=== PATIENT | male | born 1975 | race Caucasian/White ===

== ENCOUNTER 2017-05-09 09:13 | Inpatient (IN) | payer BC ==
--- NOTE | 2017-05-09 09:31 | EDM.PDOC ---
ED HPI GENERAL MEDICAL PROBLEM - General Chief Complaint: Gastrointestinal Problem Stated Complaint: SICK [phone] Time Seen by Provider: 05/09/17 09:29 Source of Information: Reports: Patient, Family, Old Records, RN, RN Notes Reviewed History Limitations: Reports: No Limitations - History of Present Illness INITIAL COMMENTS - FREE TEXT/NARRATIVE: Arrives from home by POV with c/o onset of nausea and vomiting yesterday, unable to keep anything down. Pt has DM Type 1 with poor control and reports that he has been running very high blood sugars since he became ill yesterday. Admits to loss of appetite, fatigue, generalized weakness, and chills. Onset: Gradual Onset Date: 05/08/17 Duration: Constant, Getting Worse Location: Reports: Abdomen, Generalized Quality: Reports: Other (denies pain) Severity: Severe Improves with: Reports: None Worsens with: Reports: None Associated Symptoms: Reports: No Other Symptoms Treatments [employer]: Reports: Insulin - Related Data Allergies Allergy/AdvReac Type Severity Reaction Status Date / Time No Known Allergies Allergy Verified 07/29/15 09:46 Home Meds: Home Meds Insulin Aspart [NovoLOG] 20 - 25 units SQ TIDMEALS 08/02/15 [History] Insulin Glarg,Human.Rec.Analog [Lantus] 25 units SQ BEDTIME 08/02/15 [History] Lisinopril 10 mg PO BID 08/02/15 [History] atorvaSTATin Calcium [Atorvastatin Calcium] 10 mg PO DAILY 08/02/15 [History] Past Medical History Cardiovascular History: Reports: High Cholesterol, Hypertension Neurological History: Reports: Neuropathy, Peripheral Endocrine/Metabolic History: Reports: Diabetes, Type I Dermatologic History: Reports: Cellulitis - Past Surgical History Endocrine Surgical History: Reports: None Dermatological Surgical History: Reports: None Social & Family History - Family History Family Medical History: Noncontributory - Tobacco Use Smoking Status *Q: Never Smoker Second Hand Smoke Exposure: No - Recreational Drug Use Recreational Drug Use: No - Living Situation & Occupation Living situation: Reports: , with Family ED ROS GENERAL - Review of Systems Review Of Systems: ROS reveals no pertinent complaints other than HPI. ED EXAM GENERAL NO PERIP PULSE - Physical Exam Exam: See Below Exam Limited By: No Limitations General Appearance: Alert, No Apparent Distress, Other (ill but non-toxic appearing) Eye Exam: Bilateral Eye: Normal Inspection Ears: Normal External Exam, Hearing Grossly Normal Nose: Normal Inspection, Normal Mucosa, No Blood Throat/Mouth: Normal Inspection, Normal Lips, Normal Teeth, Normal Gums, Normal Oropharynx, Normal Voice, No Airway Compromise, Other (dry oral membranes) Head: Atraumatic, Normocephalic Neck: Normal Inspection, Supple, Non-Tender, Full Range of Motion, Other (no nuchal rigidity). No: Lymphadenopathy (L), Lymphadenopathy (R) Respiratory/Chest: No Respiratory Distress, Lungs Clear, Normal Breath Sounds, No Accessory Muscle Use, Chest Non-Tender Cardiovascular: Regular Rate, Rhythm, No Edema, No Gallop, No JVD, No Murmur, No Rub GI/Abdominal: Normal Bowel Sounds, Soft, Non-Tender, No Distention, No Abnormal Bruit (Male) Exam: Deferred Rectal (Males) Exam: Deferred Back Exam: Normal Inspection. No: CVA Tenderness (L), CVA Tenderness (R) Extremities: Normal Inspection, Normal Range of Motion, Non-Tender, Normal Capillary Refill, No Pedal Edema Neurological: Alert, Oriented, CN II-XII Intact, Normal Cognition, Normal Gait, No Motor/Sensory Deficits Psychiatric: Normal Affect, Normal Mood Skin Exam: Warm, Dry, Intact, No Rash, Pallor EKG INTERPRETATION EKG Date: 05/09/17 Time: 09:50 Rhythm: Other (SR) [place]: Normal P-Wave: Present QRS: Normal ST-T: Normal QT: Normal Comparison: NA - No Prior EKG EKG Interpretation Comments: No acute ischemic changes. Course - Vital Signs Last Recorded V/S: Last Vital Signs Temp 37.7 C 05/09/17 10:09 Pulse 89 05/09/17 10:30 Resp 15 05/09/17 10:30 BP 151/86 H 05/09/17 10:30 Pulse Ox 98 05/09/17 10:09 - Orders/Labs/Meds Orders: Active Orders 24 hr Category Date Time Status Blood Glucose Check, Bedside [RC] ONETIME Care 05/09/17 09:37 Active EKG 12 Lead [EKG Documentation Completion] [RC] STAT Care 05/09/17 09:37 Active Peripheral IV Care [RC] . DIRECTED Care 05/09/17 09:37 Active Chest 1V Frontal [CR] Routine Exams 05/09/17 10:37 Taken Chest 1V Frontal [CR] Stat Exams 05/09/17 09:32 Ordered CBC WITH AUTO DIFF [HEME] Stat Lab 05/09/17 09:32 Ordered COMPREHENSIVE METABOLIC PN,CMP [CHEM] Stat Lab 05/09/17 09:32 Ordered CULTURE BLOOD [BC] Stat Lab 05/09/17 09:33 Ordered CULTURE BLOOD [BC] Stat Lab 05/09/17 09:33 Ordered CULTURE BLOOD [BC] Stat Lab 05/09/17 09:54 Received CULTURE BLOOD [BC] Stat Lab 05/09/17 09:59 Received CULTURE STREP A CONFIRMATION [RM] Stat Lab 05/09/17 09:50 Results DRUG SCREEN URINE BIORAD [URCHEM] Stat Lab 05/09/17 09:37 Uncollected STREP SCRN A RAPID W CULT CONF [RM] Stat Lab 05/09/17 09:50 Results TROPONIN I [CHEM] Stat Lab 05/09/17 09:32 Ordered UA W/MICROSCOPIC [URIN] Stat Lab 05/09/17 09:33 Uncollected Insulin Regular, Human [HumuLIN R] 100 unit Med 05/09/17 09:45 Active Sodium Chloride 0.9% [Normal Saline] 99 ml IV TITRATE Sodium Chloride 0.9% [Normal Saline] 1,000 ml Med 05/09/17 10:33 Active IV .BOLUS Sodium Chloride 0.9% [Saline Flush] Med 05/09/17 09:37 Active 10 ml FLUSH ASDIRECTED PRN Blood Culture x2 Reflex Set [OM.PC] Stat Oth 05/09/17 09:33 Ordered Blood Culture x2 Reflex Set [OM.PC] Stat Oth 05/09/17 09:37 Ordered Peripheral IV Insertion Adult [OM.PC] Stat Oth 05/09/17 09:32 Ordered Peripheral IV Insertion Adult [OM.PC] Stat Oth 05/09/17 09:37 Ordered Medication Orders Insulin Human Regular 100 unit (/ Sodium Chloride) 100 mls @ 8.52 mls/hr IV TITRATE MARCO; 0.1 UNITS/KG/HR PRN Reason: Protocol Last Admin: 05/09/17 10:28 Dose: 0.1 units/kg/hr, 8.52 mls/hr Sodium Chloride (Normal Saline) 1,000 mls @ 999 mls/hr IV .BOLUS ONE Stop: 05/09/17 11:33 Last Admin: 05/09/17 10:51 Dose: 999 mls/hr Sodium Chloride (Saline Flush) 10 ml FLUSH ASDIRECTED PRN PRN Reason: Keep Vein Open Last Admin: 05/09/17 09:43 Dose: 10 ml Labs: Laboratory Tests 05/09/17 05/09/17 05/09/17 Range/Units 09:35 09:39 09:54 WBC (5.0-10.0) 10^3/uL RBC (4.6-6.2) 10^6/uL Hgb (14.0-18.0) g/dL Hct (40.0-54.0) % MCV (80-100) fL MCH (27.0-34.0) pg MCHC (33.0-35.0) g/dL Plt Count (150-450) 10^3/uL Neut % (Auto) (42.2-75.2) % Lymph % (Auto) (20.5-50.1) % [place] % (Auto) (2-8) % Eos % (Auto) (1.0-3.0) % Baso % (Auto) (0.0-1.0) % ABG pH 7.37 (7.35-7.45) ABG pCO2 34 L (35-45) mmHg ABG pO2 38 L* (70-100) mmHg ABG HCO3 20.0 L (22-26) mmol/L ABG O2 Saturation 72 L (95-100) % ABG Base Excess -6 L ((-2)-(+3)) mmol/L Sergio Test Y O2 Delivery Device Room air Sodium 136 (135-145) mmol/L Potassium 4.7 (3.6-5.0) mmol/L Chloride 98 L (101-111) mmol/L Carbon Dioxide 20.0 L (21.0-31.0) mmol/L Anion Gap 22.7 BUN 59 H D (7-18) mg/dL Creatinine 2.6 H D (0.6-1.3) mg/dL Est Cr Clr Drug Dosing 37.44 mL/min Estimated GFR (MDRD) 27 BUN/Creatinine Ratio 22.69 Glucose 449 H* (74-105) mg/dL POC Glucose 437 H* (70-105) mg/dl Lactic Acid (0.5-2.2) mmol/L Calcium 9.6 (8.4-10.2) mg/dl Phosphorus 3.6 (2.5-4.6) mg/dL Magnesium 2.1 (1.8-2.5) mg/dL Total Bilirubin 2.1 H (0.2-1.0) mg/dL AST 20 (10-42) IU/L ALT 16 (10-60) IU/L Alkaline Phosphatase 79 (42-121) IU/L Troponin I < 0.02 (0.00-0.02) ng/ml Total Protein 7.4 (6.7-8.2) g/dl Albumin 4.1 (3.2-5.5) g/dl Globulin 3.3 Albumin/Globulin Ratio 1.24 Amylase 61 (28-100) U/L Lipase 14 L (22-51) U/L Ketones Positive 05/09/17 05/09/17 Range/Units 09:54 09:54 WBC 11.2 H (5.0-10.0) 10^3/uL RBC 3.70 L (4.6-6.2) 10^6/uL Hgb 10.9 L (14.0-18.0) g/dL Hct 32.3 L (40.0-54.0) % MCV 87.3 (80-100) fL MCH 29.5 (27.0-34.0) pg MCHC 33.7 (33.0-35.0) g/dL Plt Count 267 D (150-450) 10^3/uL Neut % (Auto) 88.2 H (42.2-75.2) % Lymph % (Auto) 9.5 L (20.5-50.1) % [place] % (Auto) 2.1 (2-8) % Eos % (Auto) 0.0 L (1.0-3.0) % Baso % (Auto) 0.2 (0.0-1.0) % ABG pH (7.35-7.45) ABG pCO2 (35-45) mmHg ABG pO2 (70-100) mmHg ABG HCO3 (22-26) mmol/L ABG O2 Saturation (95-100) % ABG Base Excess ((-2)-(+3)) mmol/L Sergio Test O2 Delivery Device Sodium (135-145) mmol/L Potassium (3.6-5.0) mmol/L Chloride (101-111) mmol/L Carbon Dioxide (21.0-31.0) mmol/L Anion Gap BUN (7-18) mg/dL Creatinine (0.6-1.3) mg/dL Est Cr Clr Drug Dosing mL/min Estimated GFR (MDRD) BUN/Creatinine Ratio Glucose (74-105) mg/dL POC Glucose (70-105) mg/dl Lactic Acid 1.8 (0.5-2.2) mmol/L Calcium (8.4-10.2) mg/dl Phosphorus (2.5-4.6) mg/dL Magnesium (1.8-2.5) mg/dL Total Bilirubin (0.2-1.0) mg/dL AST (10-42) IU/L ALT (10-60) IU/L Alkaline Phosphatase (42-121) IU/L Troponin I (0.00-0.02) ng/ml Total Protein (6.7-8.2) g/dl Albumin (3.2-5.5) g/dl Globulin Albumin/Globulin Ratio Amylase (28-100) U/L Lipase (22-51) U/L Ketones Influenza A/B: Negative Rapid Strep: Negative Meds: Medications Generic Name Dose Route Start Last Admin Trade Name Freq PRN Reason Stop Dose Admin Insulin Human Regular 100 unit 100 mls @ 8.52 mls/hr 05/09/17 09:45 05/09/17 10:28 / Sodium Chloride IV 0.1 units/kg/hr TITRATE MARCO 8.52 mls/hr Protocol Administration 0.1 UNITS/KG/HR Sodium Chloride 1,000 mls @ 999 mls/hr 05/09/17 10:33 05/09/17 10:51 Normal Saline IV 05/09/17 11:33 999 mls/hr .BOLUS ONE Administration Sodium Chloride 10 ml 05/09/17 09:37 05/09/17 09:43 Saline Flush FLUSH 10 ml ASDIRECTED PRN Administration Keep Vein Open Discontinued Medications Generic Name Dose Route Start Last Admin Trade Name Freq PRN Reason Stop Dose Admin Sodium Chloride 1,000 mls @ 999 mls/hr 05/09/17 09:40 05/09/17 09:43 Normal Saline IV 05/09/17 10:40 999 mls/hr .BOLUS ONE Administration Ondansetron HCl 4 mg 05/09/17 09:39 05/09/17 09:42 Zofran IV 05/09/17 09:40 4 mg ONETIME ONE Administration Ondansetron HCl Confirm 05/09/17 09:40 05/09/17 09:42 Zofran Administered 05/09/17 09:41 Not Given Dose 4 mg .ROUTE .STK-MED ONE - Radiology Interpretation Free Text/Narrative:: CXR: no acute process, see Rad. report. Departure - Departure Time of Disposition: 11:04 (admitted to Dr. Hannah) Disposition: Admitted As Inpatient 64 Condition: Serious Clinical Impression: Ketoacidosis in patient with type 1 diabetes mellitus Qualifiers: Diabetes mellitus complication detail: without coma Qualified Code(s): E10.10 - Type 1 diabetes mellitus with ketoacidosis without coma Nausea & vomiting Qualifiers: Vomiting type: unspecified Vomiting Intractability: non-intractable Qualified Code(s): R11.2 - Nausea with vomiting, unspecified - Discharge Information Referrals: Rock Matias MD [Primary Care Provider] - Forms: ED Department Discharge - My Orders Last 24 Hours: My Active Orders 05/09/17 09:32 Chest 1V Frontal [CR] Stat CBC WITH AUTO DIFF [HEME] Stat COMPREHENSIVE METABOLIC PN,CMP [CHEM] Stat TROPONIN I [CHEM] Stat Peripheral IV Insertion Adult [OM.PC] Stat 05/09/17 09:33 CULTURE BLOOD [BC] Stat CULTURE BLOOD [BC] Stat UA W/MICROSCOPIC [URIN] Stat Blood Culture x2 Reflex Set [OM.PC] Stat 05/09/17 09:37 Blood Glucose Check, Bedside [RC] ONETIME EKG 12 Lead [EKG Documentation Completion] [RC] STAT Peripheral IV Care [RC] . DIRECTED DRUG SCREEN URINE BIORAD [URCHEM] Stat Sodium Chloride 0.9% [Saline Flush] 10 ml FLUSH ASDIRECTED PRN Blood Culture x2 Reflex Set [OM.PC] Stat Peripheral IV Insertion Adult [OM.PC] Stat 05/09/17 09:45 Insulin Regular, Human [HumuLIN R] 100 unit Sodium Chloride 0.9% [Normal Saline] 99 ml IV TITRATE 05/09/17 09:50 CULTURE STREP A CONFIRMATION [RM] Stat STREP SCRN A RAPID W CULT CONF [RM] Stat 05/09/17 09:54 CULTURE BLOOD [BC] Stat 05/09/17 09:59 CULTURE BLOOD [BC] Stat 05/09/17 10:33 Sodium Chloride 0.9% [Normal Saline] 1,000 ml IV .BOLUS 05/09/17 10:37 Chest 1V Frontal [CR] Routine - Assessment/Plan Last 24 Hours: My Active Orders 05/09/17 09:32 Chest 1V Frontal [CR] Stat CBC WITH AUTO DIFF [HEME] Stat COMPREHENSIVE METABOLIC PN,CMP [CHEM] Stat TROPONIN I [CHEM] Stat Peripheral IV Insertion Adult [OM.PC] Stat 05/09/17 09:33 CULTURE BLOOD [BC] Stat CULTURE BLOOD [BC] Stat UA W/MICROSCOPIC [URIN] Stat Blood Culture x2 Reflex Set [OM.PC] Stat 05/09/17 09:37 Blood Glucose Check, Bedside [RC] ONETIME EKG 12 Lead [EKG Documentation Completion] [RC] STAT Peripheral IV Care [RC] . DIRECTED DRUG SCREEN URINE BIORAD [URCHEM] Stat Sodium Chloride 0.9% [Saline Flush] 10 ml FLUSH ASDIRECTED PRN Blood Culture x2 Reflex Set [OM.PC] Stat Peripheral IV Insertion Adult [OM.PC] Stat 05/09/17 09:45 Insulin Regular, Human [HumuLIN R] 100 unit Sodium Chloride 0.9% [Normal Saline] 99 ml IV TITRATE 05/09/17 09:50 CULTURE STREP A CONFIRMATION [RM] Stat STREP SCRN A RAPID W CULT CONF [RM] Stat 05/09/17 09:54 CULTURE BLOOD [BC] Stat 05/09/17 09:59 CULTURE BLOOD [BC] Stat 05/09/17 10:33 Sodium Chloride 0.9% [Normal Saline] 1,000 ml IV .BOLUS 05/09/17 10:37 Chest 1V Frontal [CR] Routine
[2017-05-09] MEDS ORDERED: Ondansetron 4 MG/2 ML SDV IV ONE (09:39)
[2017-05-09] MEDS ORDERED: Sodium Chloride 0.9% 1,000 ML IV ONE ×2 (09:40→10:33)
[2017-05-09] MEDS ORDERED: Ondansetron 4 MG/2 ML SDV ONE (09:40)
[2017-05-09] MEDS: Sodium Chloride 0.9% 10 ML Syringe FLUSH PRN ×2 (09:43→17:55)
[2017-05-09 10:27] LABS: CHLORIDE,CL 98 mmol/L (101-111); SODIUM,NA 136 mmol/L (135-145)
[2017-05-09 10:33] LABS: O2 DELIVERY DEVICE ROOM AIR
[2017-05-09 10:34] LABS: ALLEN TEST Y
[2017-05-09 10:35] LABS: PCO2 ARTERIAL 34 mmHg (35-45)
[2017-05-09 10:36] LABS: O2 SATURATION ARTERIAL 72 % (95-100); PO2 ARTERIAL 38 mmHg (70-100)
[2017-05-09 10:37] LABS: BASE EXCESS ARTERIAL -6 mmol/L ((-2)-(+3))
[2017-05-09] MEDS ORDERED: Acetaminophen 325 MG Tab PO PRN (12:14)
[2017-05-09] MEDS ORDERED: Ondansetron 4 MG/2 ML SDV IV PRN (12:14)
[2017-05-09] MEDS ORDERED: Sodium Chloride 0.9% 1,000 ML IV SCH (12:15)
--- NOTE | 2017-05-09 12:53 | PCM.HP ---
H&P History of Present Illness - General Date of Service: 05/09/17 Admit Problem/Dx: Admission Diagnosis/Problem Admission Diagnosis/Problem Diabetic ketoacidosis Source of Information: Patient - History of Present Illness Initial Comments - Free Text/Narative: Shan Chang is a 42 y/o male with PMH of DM-I since age 26 years, HTN, Hyperlipidemia, Depression. He presented to the Ed on account of nausea and vomiting that started yesterday morning. He said he was i his usual state of health till above started yesterday. he had several episode of nausea, vomiting. He was vomiting every 30 minutes. Vomit was colorless with no blood. He had no abdominal pain. No fever or chills. He denies dehydration, flu symptoms or use of alcohol. He endorsed medication compliance. No cough, chest pain, or SOB. No skin uklcers or breakdown. In the ED his labs revealed elevated Anion gap, ketones and hyperglycemia. He was started on insulin infusion and sent for admission. Associated Symptoms: Reports: Nausea/Vomiting - Related Data Allergies/Adverse Reactions: Allergies Allergy/AdvReac Type Severity Reaction Status Date / Time No Known Allergies Allergy Verified 05/09/17 12:04 Home Medications: Home Meds Insulin Aspart [NovoLOG] 15 units SQ TIDMEALS 08/02/15 [History] Insulin Glarg,Human.Rec.Analog [Lantus] 25 units SQ BEDTIME 08/02/15 [History] Lisinopril 10 mg PO BID 08/02/15 [History] atorvaSTATin Calcium [Atorvastatin Calcium] 10 mg PO BEDTIME 08/02/15 [History] Latanoprost [Latanoprost] 1 drop EYELF BEDTIME 05/09/17 [History] Levothyroxine 150 mcg PO BEDTIME 05/09/17 [History] Losartan [Cozaar] 25 mg PO BEDTIME 05/09/17 [History] Sertraline HCl 25 mg PO BEDTIME 05/09/17 [History] Past Medical History HEENT History: Reports: Impaired Vision, Other (See Below) 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" Cardiovascular History: Reports: High Cholesterol, Hypertension Neurological History: Reports: Neuropathy, Peripheral Psychiatric History: Reports: Depression Endocrine/Metabolic History: Reports: Diabetes, Type I, Hypothyroidism Dermatologic History: Reports: Cellulitis - Past Surgical History Cardiovascular Surgical History: Reports: None Endocrine Surgical History: Reports: None Neurological Surgical History: Reports: None Social & Family History - Family History Family Medical History: Noncontributory - Tobacco Use Smoking Status *Q: Never Smoker Second Hand Smoke Exposure: No - Caffeine Use Caffeine Use: Reports: Soda - Recreational Drug Use Recreational Drug Use: No - Living Situation & Occupation Living situation: Reports: , with Family H&P Review of Systems - Review of Systems: Review Of Systems: See Below Gastrointestinal: Reports: Nausea, Vomiting Exam - Exam Exam: See Below (Grossly normal physical exams) - Vital Signs Vital Signs: Last Vital Signs Temp 99.9 F 05/09/17 10:09 Pulse 89 05/09/17 10:30 Resp 15 05/09/17 10:30 BP 151/86 H 05/09/17 10:30 Pulse Ox 98 05/09/17 10:09 Weight: 188 lb 3.2 oz - Exam General: Alert, Oriented, 4 HEENT: PERRLA, Hearing Intact, Mucosa Moist & [place], Nares Patent, Normal Nasal Septum, Posterior Pharynx Clear, Conjunctiva Clear, EOMI, EACs Clear, TMs Clear Neck: Supple, Trachea Midline, 2 Lungs: Clear to Auscultation, Normal Respiratory Effort Cardiovascular: Regular Rate, Regular Rhythm GI/Abdominal Exam: Normal Bowel Sounds, Soft, Non-Tender, No Organomegaly, No Distention, No Abnormal Bruit, No Mass, Pelvis Stable (Male) Exam: No Hernia, Normal Inspection, Normal Prostate, Circumcised Rectal (Males) Exam: Normal Exam, Normal Rectal Tone, Prostate Normal Back Exam: Normal Inspection, Full Range of Motion, NT Extremities: Normal Inspection, Normal Range of Motion, Non-Tender, No Pedal Edema, Normal Capillary Refill Skin: Warm, Dry, Intact Neurological: Cranial Nerves Intact, Reflexes Equal Bilateral Neuro Extensive - Mental Status: Alert, Oriented x3, Normal Mood/Affect, Normal Cognition Neuro Extensive - Motor, Sensory, Reflexes: CN II-XII Intact, Normal Gait, Normal Reflexes Psychiatric: Alert, Normal Affect, Normal Mood - Patient Data Lab Results Last 24 hrs: Laboratory Results - last 24 hr 05/09/17 Range/Units 12:35 POC Glucose 256 H (70-105) mg/dl Result Diagrams: 05/09/17 09:54 05/09/17 09:54 EKG INTERPRETATION Rhythm: NSR *Q Meaningful Use (ADM) - VTE *Q VTE Criteria *Q: - Stroke *Q Stroke Criteria *Q: - AMI *Q AMI Criteria *Q: - Problem List (1) Ketoacidosis in patient with type 1 diabetes mellitus SNOMED Code(s): 038185321 ICD Code: E10.10 - TYPE 1 DIABETES MELLITUS WITH KETOACIDOSIS WITHOUT COMA Status: Acute Priority: High Current Visit: Yes Qualifiers: Diabetes mellitus complication detail: without coma Qualified Code(s): E10.10 - Type 1 diabetes mellitus with ketoacidosis without coma (2) Nausea & vomiting SNOMED Code(s): 28918753 ICD Code: R11.2 - NAUSEA WITH VOMITING, UNSPECIFIED Status: Acute Current Visit: Yes Qualifiers: Vomiting type: unspecified Vomiting Intractability: non-intractable Qualified Code(s): R11.2 - Nausea with vomiting, unspecified (3) Diabetes mellitus type 1, uncontrolled, with complications SNOMED Code(s): 71322602 ICD Code: E10.8 - TYPE 1 DIABETES MELLITUS WITH UNSPECIFIED COMPLICATIONS; E10.65 - TYPE 1 DIABETES MELLITUS WITH HYPERGLYCEMIA Status: Acute Current Visit: No Onset Date: 08/02/15 Problem List Initiated/Reviewed/Updated: Yes Orders Last 24hrs: Active Orders 24 hr Category Date Time Status Patient Status [ADT] Routine ADT 05/09/17 12:15 Ordered Antiembolic Devices [RC] PER UNIT ROUTINE Care 05/09/17 12:21 Ordered Bedrest Bathroom Privileges [RC] ASDIRECTED Care 05/09/17 12:14 Ordered Blood Glucose Check, Bedside [RC] Q1H Care 05/09/17 12:14 Ordered Cardiac Monitoring [RC] CONTINUOUS Care 05/09/17 12:19 Ordered Oxygen Therapy [RC] PRN Care 05/09/17 12:15 Ordered VTE/DVT Education [RC] PER UNIT ROUTINE Care 05/09/17 12:15 Ordered Vital Signs [RC] Q4H Care 05/09/17 12:15 Ordered Nothing per Oral Now Diet [DIET] Diet 05/09/17 Lunch Ordered BASIC METABOLIC PANEL,BMP [CHEM] Q4H Lab 05/09/17 14:00 Ordered BASIC METABOLIC PANEL,BMP [CHEM] Q4H Lab 05/09/17 18:00 Ordered BASIC METABOLIC PANEL,BMP [CHEM] Q4H Lab 05/09/17 22:00 Ordered BASIC METABOLIC PANEL,BMP [CHEM] Q4H Lab 05/10/17 02:00 Ordered BLOOD GAS VENOUS [BG] Q4H Lab 05/09/17 14:00 Ordered BLOOD GAS VENOUS [BG] Q4H Lab 05/09/17 18:00 Ordered Acetaminophen [Tylenol] Med 05/09/17 12:14 Ordered 650 mg PO Q6H PRN Heparin Sodium Med 05/09/17 21:00 Ordered 5,000 units SUBCUT Q12HR Ondansetron [Zofran] Med 05/09/17 12:14 Ordered 4 mg IV Q4H PRN Sodium Chloride 0.9% [Normal Saline] 1,000 ml Med 05/09/17 12:15 Ordered IV ASDIRECTED Antiembolic Hose [OM.PC] Per Unit Routine Oth 05/09/17 12:20 Ordered Resuscitation Status Routine Resus Stat 05/09/17 12:14 Ordered Medication Orders Acetaminophen (Tylenol) 650 mg PO Q6H PRN PRN Reason: Pain (Mild 1-3)/fever Heparin Sodium (Porcine) (Heparin Sodium) 5,000 units SUBCUT Q12HR MARCO Insulin Human Regular 100 unit (/ Sodium Chloride) 100 mls @ 8.52 mls/hr IV TITRATE MARCO; 0.1 UNITS/KG/HR PRN Reason: Protocol Last Infusion: 05/09/17 11:30 Dose: 0.1 units/kg/hr, 8.52 mls/hr Admin: 05/09/17 10:28 Dose: 0.1 units/kg/hr, 8.52 mls/hr Sodium Chloride (Normal Saline) 1,000 mls @ 125 mls/hr IV ASDIRECTED MARCO Ondansetron HCl (Zofran) 4 mg IV Q4H PRN PRN Reason: Nausea/Vomiting Sodium Chloride (Saline Flush) 10 ml FLUSH ASDIRECTED PRN PRN Reason: Keep Vein Open Last Admin: 05/09/17 09:43 Dose: 10 ml Assessment/Plan Comment:: # DKA -Patient pesented with nausea and vomiting -His has elevated Anion Gap with positive ketones -Start DKA protocol -Insulin infusion -Accucheck q1h and adjust insulin rate accordingly -IVF with N/S -Switch to D5 in N/S when blood glucose is less than 200 -VBG and BMP q4h -Once Anion Gap is closed, will bridge with glargine # Acute Kidney Injury -Creatinine increased from baseline -This is likely pre-renal due to dehydration -IVF -BMP daily to monitor renal function -Avoid all nephrotoxic agents #Chronic anemia -H/H stable -will monitor # Hypertension -BP at goal -Monitor BP closely -will hold lisinpril for now inview of KASSY -will start Amlodipine if needed #Hyperlipidemia -on lipitor #Depression -on zoloft #Soren NPO for now #Full code
[2017-05-09 14:08] LABS: O2 DELIVERY DEVICE ROOM AIR
[2017-05-09] MEDS ORDERED: Pantoprazole 40 MG Tab.CR PO ONE (14:11)
[2017-05-09] MEDS ORDERED: Aluminum Hydroxide/Magnesium Hydroxide/Simethicone Susp 30 ML Cup PO PRN (14:12)
[2017-05-09 14:29] LABS: PH,VENOUS 7.47 (7.31-7.41)
[2017-05-09 14:30] LABS: BASE EXCESS VENOUS -3 mmol/l ((-2)-(+3)); BICARBONATE,VENOUS 21 mmol/l (19-25); O2 SATURATION VENOUS 93 % (60-80); PCO2 VENOUS 28 mmHg (41-51); PO2 VENOUS 61 mmHg (35-42)
[2017-05-09] MEDS: Dextrose 5%-0.9% NaCl with KCl 1,000 ML IV SCH ×2 (14:53→14:57)
[2017-05-09] MEDS ORDERED: 50% Dextrose in Water 50 ML Syringe IVPUSH ONE (17:46)
[2017-05-09 18:18] LABS: O2 DELIVERY DEVICE ROOM AIR
[2017-05-09 18:21] LABS: O2 SATURATION VENOUS 94 % (60-80); PCO2 VENOUS 36 mmHg (41-51); PH,VENOUS 7.43 (7.31-7.41); PO2 VENOUS 64 mmHg (35-42)
[2017-05-09 18:22] LABS: BASE EXCESS VENOUS 0 mmol/l ((-2)-(+3)); BICARBONATE,VENOUS 24 mmol/l (19-25)
[2017-05-09] MEDS ORDERED: Insulin Detemir 100 Units/ML 3 ML Pen SUBCUT SCH (19:00)
[2017-05-09] MEDS: Sodium Chloride 0.9% 1,000 ML IV SCH (19:31)
[2017-05-09] MEDS ORDERED: Sertraline 50 MG Tab PO SCH (21:00)
[2017-05-09] MEDS ORDERED: Levothyroxine 100 MCG Tab PO SCH (21:00)
[2017-05-09] MEDS ORDERED: Lisinopril 10 MG Tab PO SCH (21:00)
[2017-05-09] MEDS: Labetalol 100 MG Tab PO SCH (23:32)
[2017-05-09] MEDS: Heparin Sodium 5,000 Units/ML Vial SUBCUT SCH (23:33)
[2017-05-10] MEDS: Sodium Chloride 0.9% 1,000 ML IV SCH ×3 (05:40→17:46)
[2017-05-10] MEDS ORDERED: Pantoprazole 40 MG Tab.CR PO SCH (06:00)
[2017-05-10 07:58] VITALS: BP 132/68
[2017-05-10] MEDS: Insulin Aspart 100 Units/ML 3 ML Pen SUBCUT SCH ×3 (08:11→17:18)
[2017-05-10] MEDS: Heparin Sodium 5,000 Units/ML Vial SUBCUT SCH (08:51)
[2017-05-10] MEDS: Labetalol 100 MG Tab PO SCH (08:51)
[2017-05-10] MEDS ORDERED: Insulin Regular, Human 100 Units/ML 3 ML Vial IV ONE ×4 (14:35→15:12)
--- NOTE | 2017-05-10 14:37 | PCM.PN ---
- General Info Admission Dx/Problem (Free Text): Admission Diagnosis/Problem Admission Diagnosis/Problem Diabetic ketoacidosis Subjective Update: Shan Chang is a 42 y/o male with PMH of DM-I since age 26 years, HTN, Hyperlipidemia, Depression. He presented to the Ed on account of nausea and vomiting that started yesterday morning. He was found to be in DKA and subsequently admitted. Seen this AM Doing well No complaints No event overnight Functional Status: Reports: Pain Controlled - Review of Systems General: Reports: No Symptoms HEENT: Reports: No Symptoms Pulmonary: Reports: No Symptoms Cardiovascular: Reports: No Symptoms Gastrointestinal: Reports: No Symptoms Genitourinary: Reports: No Symptoms Musculoskeletal: Reports: No Symptoms Skin: Reports: No Symptoms Neurological: Reports: No Symptoms Psychiatric: Reports: No Symptoms - Patient Data Vitals - Most Recent: Last Vital Signs Temp 98.1 F 05/10/17 07:57 Pulse 74 05/10/17 08:51 Resp 20 05/10/17 07:57 BP 132/68 05/10/17 08:51 Pulse Ox 98 05/10/17 07:57 Weight - Most Recent: 188 lb 3.2 oz I&O - Last 24 Hours: Intake & Output 05/09/17 05/10/17 05/10/17 22:59 06:59 14:59 Intake Total 716 1469 Output Total 400 Balance 316 1469 Lab Results Last 24 Hours: Laboratory Results - last 24 hr 05/09/17 05/09/17 05/09/17 Range/Units 13:37 14:00 14:00 VBG pH 7.47 H (7.31-7.41) VBG pCO2 28 L (41-51) mmHg VBG pO2 61 H (35-42) mmHg VBG HCO3 21 (19-25) mmol/l VBG O2 Saturation 93 H (60-80) % VBG Base Excess -3 L ((-2)-(+3)) mmol/l O2 Delivery Device Room air Sodium 140 (135-145) mmol/L Potassium 4.0 (3.6-5.0) mmol/L Chloride 106 (101-111) mmol/L Carbon Dioxide 22.0 (21.0-31.0) mmol/L Anion Gap 16.0 BUN 59 H (7-18) mg/dL Creatinine 2.5 H (0.6-1.3) mg/dL Est Cr Clr Drug Dosing 41.39 mL/min Estimated GFR (MDRD) 28 Glucose 213 H (74-105) mg/dL POC Glucose 221 H (70-105) mg/dl Calcium 9.1 (8.4-10.2) mg/dl 05/09/17 05/09/17 05/09/17 Range/Units 14:40 15:40 16:43 VBG pH (7.31-7.41) VBG pCO2 (41-51) mmHg VBG pO2 (35-42) mmHg VBG HCO3 (19-25) mmol/l VBG O2 Saturation (60-80) % VBG Base Excess ((-2)-(+3)) mmol/l O2 Delivery Device Sodium (135-145) mmol/L Potassium (3.6-5.0) mmol/L Chloride (101-111) mmol/L Carbon Dioxide (21.0-31.0) mmol/L Anion Gap BUN (7-18) mg/dL Creatinine (0.6-1.3) mg/dL Est Cr Clr Drug Dosing mL/min Estimated GFR (MDRD) Glucose (74-105) mg/dL POC Glucose 173 H 146 H 88 (70-105) mg/dl Calcium (8.4-10.2) mg/dl 05/09/17 05/09/17 05/09/17 Range/Units 17:39 18:00 18:08 VBG pH 7.43 H (7.31-7.41) VBG pCO2 36 L (41-51) mmHg VBG pO2 64 H (35-42) mmHg VBG HCO3 24 (19-25) mmol/l VBG O2 Saturation 94 H (60-80) % VBG Base Excess 0 ((-2)-(+3)) mmol/l O2 Delivery Device Room air Sodium 141 (135-145) mmol/L Potassium 3.5 L (3.6-5.0) mmol/L Chloride 107 (101-111) mmol/L Carbon Dioxide 27.0 (21.0-31.0) mmol/L Anion Gap 10.5 BUN 58 H (7-18) mg/dL Creatinine 2.2 H (0.6-1.3) mg/dL Est Cr Clr Drug Dosing 47.03 mL/min Estimated GFR (MDRD) 33 Glucose 147 H (74-105) mg/dL POC Glucose 57 L (70-105) mg/dl Calcium 9.1 (8.4-10.2) mg/dl 05/09/17 05/09/17 05/09/17 Range/Units 18:53 21:04 22:03 VBG pH (7.31-7.41) VBG pCO2 (41-51) mmHg VBG pO2 (35-42) mmHg VBG HCO3 (19-25) mmol/l VBG O2 Saturation (60-80) % VBG Base Excess ((-2)-(+3)) mmol/l O2 Delivery Device Sodium 136 (135-145) mmol/L Potassium 4.1 (3.6-5.0) mmol/L Chloride 103 (101-111) mmol/L Carbon Dioxide 20.0 L (21.0-31.0) mmol/L Anion Gap 17.1 BUN 58 H (7-18) mg/dL Creatinine 2.3 H (0.6-1.3) mg/dL Est Cr Clr Drug Dosing 44.99 mL/min Estimated GFR (MDRD) 31 Glucose 253 H (74-105) mg/dL POC Glucose 126 H 210 H (70-105) mg/dl Calcium 8.6 (8.4-10.2) mg/dl 05/10/17 05/10/17 05/10/17 Range/Units 01:58 08:07 09:43 VBG pH (7.31-7.41) VBG pCO2 (41-51) mmHg VBG pO2 (35-42) mmHg VBG HCO3 (19-25) mmol/l VBG O2 Saturation (60-80) % VBG Base Excess ((-2)-(+3)) mmol/l O2 Delivery Device Sodium 137 (135-145) mmol/L Potassium 3.7 (3.6-5.0) mmol/L Chloride 104 (101-111) mmol/L Carbon Dioxide 25.0 (21.0-31.0) mmol/L Anion Gap 11.7 BUN 56 H (7-18) mg/dL Creatinine 2.2 H (0.6-1.3) mg/dL Est Cr Clr Drug Dosing 47.03 mL/min Estimated GFR (MDRD) 33 Glucose 140 H (74-105) mg/dL POC Glucose 41 L* 212 H (70-105) mg/dl Calcium 8.6 (8.4-10.2) mg/dl 05/10/17 05/10/17 Range/Units 11:09 13:32 VBG pH (7.31-7.41) VBG pCO2 (41-51) mmHg VBG pO2 (35-42) mmHg VBG HCO3 (19-25) mmol/l VBG O2 Saturation (60-80) % VBG Base Excess ((-2)-(+3)) mmol/l O2 Delivery Device Sodium 132 L (135-145) mmol/L Potassium 4.3 (3.6-5.0) mmol/L Chloride 100 L (101-111) mmol/L Carbon Dioxide 23.0 (21.0-31.0) mmol/L Anion Gap 13.3 BUN 46 H (7-18) mg/dL Creatinine 1.8 H (0.6-1.3) mg/dL Est Cr Clr Drug Dosing 57.48 mL/min Estimated GFR (MDRD) 41 Glucose 436 H* (74-105) mg/dL POC Glucose 290 H (70-105) mg/dl Calcium 8.3 L (8.4-10.2) mg/dl Med Orders - Current: Current Medications Acetaminophen (Tylenol) 650 mg PO Q6H PRN PRN Reason: Pain (Mild 1-3)/fever Al Hydroxide/Mg Hydroxide (Mag-Al Plus) 30 ml PO Q4H PRN PRN Reason: Dyspepsia Last Admin: 05/09/17 15:52 Dose: 30 ml Heparin Sodium (Porcine) (Heparin Sodium) 5,000 units SUBCUT Q12HR [facility] Last Admin: 05/10/17 08:51 Dose: 5,000 units Sodium Chloride (Normal Saline) 1,000 mls @ 100 mls/hr IV ASDIRECTED [facility] Last Admin: 05/10/17 05:40 Dose: 100 mls/hr Insulin Aspart (Novolog) 0 unit SUBCUT TIDMEALS [facility] PRN Reason: Protocol Last Admin: 05/10/17 13:06 Dose: 6 units Insulin Detemir (Levemir) 25 unit SUBCUT BEDTIME [facility] Last Admin: 05/09/17 20:22 Dose: 25 units Labetalol HCl (Normodyne) 200 mg PO BID [facility] Last Admin: 05/10/17 08:51 Dose: 200 mg Levothyroxine Sodium (Synthroid) 100 mcg PO BEDTIME [facility] Last Admin: 05/09/17 23:31 Dose: 100 mcg Ondansetron HCl (Zofran) 4 mg IV Q4H PRN PRN Reason: Nausea/Vomiting Pantoprazole Sodium (Protonix) 40 mg PO ACBREAKFAST [facility] Last Admin: 05/10/17 06:27 Dose: 40 mg Sertraline HCl (Zoloft) 25 mg PO BEDTIME [facility] Last Admin: 05/09/17 23:31 Dose: 25 mg Sodium Chloride (Saline Flush) 10 ml FLUSH ASDIRECTED PRN PRN Reason: Keep Vein Open Last Admin: 05/09/17 17:55 Dose: 10 ml Discontinued Medications Dextrose/Water (Dextrose 50% In Water) 50 ml IVPUSH ONETIME ONE Stop: 05/09/17 17:47 Last Admin: 05/09/17 17:53 Dose: 50 ml Sodium Chloride (Normal Saline) 1,000 mls @ 999 mls/hr IV .BOLUS ONE Stop: 05/09/17 10:40 Last Admin: 05/09/17 09:43 Dose: 999 mls/hr Insulin Human Regular 100 unit (/ Sodium Chloride) 100 mls @ 8.52 mls/hr IV TITRATE [facility]; 0.1 UNITS/KG/HR PRN Reason: Protocol Last Infusion: 05/09/17 17:19 Dose: 0.11 units/kg/hr, 10 mls/hr Sodium Chloride (Normal Saline) 1,000 mls @ 999 mls/hr IV .BOLUS ONE Stop: 05/09/17 11:33 Last Admin: 05/09/17 10:51 Dose: 999 mls/hr Sodium Chloride (Normal Saline) 1,000 mls @ 125 mls/hr IV ASDIRECTED [facility] Last Infusion: 05/09/17 15:00 Dose: 125 mls/hr Potassium Chloride/Dextrose/Sod Cl (D5 Ns With 20 Meq Kcl) 1,000 mls @ 100 mls/ hr IV ASDIRECTED [facility] Last Infusion: 05/09/17 19:30 Dose: 0 mls/hr Lisinopril (Prinivil) 10 mg PO BID [facility] Ondansetron HCl (Zofran) 4 mg IV ONETIME ONE Stop: 05/09/17 09:40 Last Admin: 05/09/17 09:42 Dose: 4 mg Ondansetron HCl (Zofran) Confirm Administered Dose 4 mg .ROUTE .STK-MED ONE Stop: 05/09/17 09:41 Last Admin: 05/09/17 09:42 Dose: Not Given Pantoprazole Sodium (Protonix) 40 mg PO ONETIME ONE Stop: 05/09/17 14:12 Last Admin: 05/09/17 14:50 Dose: 40 mg - Exam General: Alert, Oriented HEENT: Pupils Equal, Pupils Reactive, EOMI, Mucous Membr. Moist/[place] Neck: Supple Lungs: Clear to Auscultation, Normal Respiratory Effort Cardiovascular: Regular Rate, Regular Rhythm GI/Abdominal Exam: Normal Bowel Sounds, Soft, Non-Tender, No Organomegaly, No Distention, No Abnormal Bruit, No Mass, Pelvis Stable (Male) Exam: No Hernia, Normal Inspection, Normal Prostate, Circumcised Back Exam: Normal Inspection, Full Range of Motion Extremities: Normal Inspection, Normal Range of Motion, Non-Tender, No Pedal Edema, Normal Capillary Refill Skin: Warm, Dry, Intact Wound/Incisions: Healing Well Neurological: No New Focal Deficit Psy/Mental Status: Alert, Normal Affect, Normal Mood - Problem List & Annotations (1) Ketoacidosis in patient with type 1 diabetes mellitus SNOMED Code(s): 083336500 Code(s): E10.10 - TYPE 1 DIABETES MELLITUS WITH KETOACIDOSIS WITHOUT COMA Status: Acute Priority: High Current Visit: Yes Qualifiers: Diabetes mellitus complication detail: without coma Qualified Code(s): E10.10 - Type 1 diabetes mellitus with ketoacidosis without coma (2) Nausea & vomiting SNOMED Code(s): 94813916 Code(s): R11.2 - NAUSEA WITH VOMITING, UNSPECIFIED Status: Acute Priority : High Current Visit: Yes Qualifiers: Vomiting type: unspecified Vomiting Intractability: non-intractable Qualified Code(s): R11.2 - Nausea with vomiting, unspecified (3) Diabetes mellitus type 1, uncontrolled, with complications SNOMED Code(s): 57054646 Code(s): E10.8 - TYPE 1 DIABETES MELLITUS WITH UNSPECIFIED COMPLICATIONS; E10.65 - TYPE 1 DIABETES MELLITUS WITH HYPERGLYCEMIA Status: Acute Current Visit: No Onset Date: 08/02/15 (4) Diabetes mellitus type 1, uncontrolled SNOMED Code(s): 01801193 Code(s): E10.65 - TYPE 1 DIABETES MELLITUS WITH HYPERGLYCEMIA Status: Chronic Priority: High Current Visit: No - Problem List Review Problem List Initiated/Reviewed/Updated: Yes - My Orders Last 24 Hours: My Active Orders 05/09/17 14:12 Alum Hydrox/Mag Hydrox/Simeth [Mag-Al Plus] 30 ml PO Q4H PRN 05/09/17 18:53 Blood Glucose Check, Bedside [RC] QIDACANDBED 05/09/17 19:00 Insulin Detemir [Levemir] 25 unit SUBCUT BEDTIME Sodium Chloride 0.9% [Normal Saline] 1,000 ml IV ASDIRECTED 05/09/17 21:00 Labetalol [Normodyne] 200 mg PO BID Levothyroxine [Synthroid] 100 mcg PO BEDTIME Sertraline [Zoloft] 25 mg PO BEDTIME 05/09/17 Dinner Consistent Carbohydrate Diet [DIET] 05/10/17 06:00 Pantoprazole [ProTONIX] 40 mg PO ACBREAKFAST 05/10/17 08:00 Insulin Aspart [NovoLOG] See Protocol SUBCUT TIDMEALS - Plan Plan:: #Uncontrolled DM-I with DKA -DKA now resloved -Glargine 25 qhs -Lispro q meal -Lispro sliding scale -Monitor FSG closely # Acute Kidney Injury -Creatinine trending down -IVF -BMP daily to monitor renal function -Avoid all nephrotoxic agents #Chronic anemia -H/H stable -will monitor # Hypertension -BP at goal -Monitor BP closely -will hold lisinpril for now inview of KASSY -Continue labetalol #Hyperlipidemia -on lipitor #Depression -on zoloft #Soren NPO for now #Full code
[2017-05-10] MEDS ORDERED: Insulin Regular, Human 100 Units/ML 3 ML Vial IV STA ×2 (15:42→16:45)
--- NOTE | 2017-05-10 18:46 | PCM.DCSUM1 ---
Discharge Summary - Hospital Course Free Text/Narrative:: Shan Chang is a 42 y/o male with PMH of DM-I since age 26 years, HTN, Hyperlipidemia, Depression. He presented to the Ed on account of nausea and vomiting that started yesterday morning. He was found to be in DKA and subsequently admitted. - Discharge Data Discharge Date: 05/10/17 Discharge Disposition: Home, Self-Care 01 Condition: Good - Discharge Diagnosis/Problem(s) (1) Ketoacidosis in patient with type 1 diabetes mellitus SNOMED Code(s): 703945996 ICD Code: E10.10 - TYPE 1 DIABETES MELLITUS WITH KETOACIDOSIS WITHOUT COMA Status: Acute Priority: High Qualifiers: Diabetes mellitus complication detail: without coma Qualified Code(s): E10.10 - Type 1 diabetes mellitus with ketoacidosis without coma (2) Nausea & vomiting SNOMED Code(s): 42472611 ICD Code: R11.2 - NAUSEA WITH VOMITING, UNSPECIFIED Status: Acute Priority: High Qualifiers: Vomiting type: unspecified Vomiting Intractability: non-intractable Qualified Code(s): R11.2 - Nausea with vomiting, unspecified (3) Diabetes mellitus type 1, uncontrolled, with complications SNOMED Code(s): 46027600 ICD Code: E10.8 - TYPE 1 DIABETES MELLITUS WITH UNSPECIFIED COMPLICATIONS; E10.65 - TYPE 1 DIABETES MELLITUS WITH HYPERGLYCEMIA Status: Acute Onset Date: 08/02/15 (4) Diabetes mellitus type 1, uncontrolled SNOMED Code(s): 06040988 ICD Code: E10.65 - TYPE 1 DIABETES MELLITUS WITH HYPERGLYCEMIA Status: Chronic Priority: High (5) DKA (diabetic ketoacidoses) SNOMED Code(s): 170222049 ICD Code: E13.10 - OTH DIABETES MELLITUS WITH KETOACIDOSIS WITHOUT COMA Status: Acute Onset Date: 08/02/15 - Discharge Plan Home Medications: Home Meds Insulin Aspart [NovoLOG] 5 units SQ TIDMEALS 08/02/15 [History] Insulin Glarg,Human.Rec.Analog [Lantus] 25 units SQ BEDTIME 08/02/15 [History] atorvaSTATin Calcium [Atorvastatin Calcium] 10 mg PO BEDTIME 08/02/15 [History] Ferrous Sulfate 325 mg PO DAILY 05/09/17 [History] Labetalol HCl [Labetalol] 200 mg PO BID 05/09/17 [History] Latanoprost 1 drop EYELF BEDTIME 05/09/17 [History] Levothyroxine 100 mcg PO BEDTIME 05/09/17 [History] Losartan [Cozaar] 25 mg PO BEDTIME 05/09/17 [History] Sertraline HCl 25 mg PO BEDTIME 05/09/17 [History] Acetaminophen [Tylenol] 650 mg PO Q6H PRN tablet 05/10/17 [Rx] Alum Hydrox/Mag Hydrox/Simeth [Mag-Al Plus] 30 ml PO Q4H PRN cup 05/10/17 [Rx] Insulin Detemir [Levemir] 25 unit SUBCUT BEDTIME pen 05/10/17 [Rx] Patient Handouts: Hypoglycemia, Diabetic Ketoacidosis, Hyperglycemia, Blood Glucose Monitoring, Adult Referrals: Rock Matias MD [Primary Care Provider] - - Discharge Summary/Plan Comment DC Time >30 min.: Yes - General Info Date of Service: 05/10/17 Admission Dx/Problem (Free Text: Admission Diagnosis/Problem Admission Diagnosis/Problem Diabetic ketoacidosis Subjective Update: Shan Chang is a 42 y/o male with PMH of DM-I since age 26 years, HTN, Hyperlipidemia, Depression. He presented to the Ed on account of nausea and vomiting that started yesterday morning. He was found to be in DKA and subsequently admitted. Seen this AM Doing well No complaints No event overnight Functional Status: Reports: Pain Controlled - Review of Systems General: Reports: No Symptoms HEENT: Reports: No Symptoms Pulmonary: Reports: No Symptoms Cardiovascular: Reports: No Symptoms Gastrointestinal: Reports: No Symptoms Genitourinary: Reports: No Symptoms Musculoskeletal: Reports: No Symptoms Skin: Reports: No Symptoms Neurological: Reports: No Symptoms Psychiatric: Reports: No Symptoms - Patient Data Vitals - Most Recent: Last Vital Signs Temp 98.1 F 05/10/17 07:57 Pulse 74 05/10/17 08:51 Resp 20 05/10/17 07:57 BP 132/68 05/10/17 08:51 Pulse Ox 98 05/10/17 07:57 Weight - Most Recent: 188 lb 3.2 oz I&O - Last 24 hours: Intake & Output 05/10/17 05/10/17 05/10/17 06:59 14:59 22:59 Intake Total 1469 Balance 1469 Lab Results - Last 24 hrs: Laboratory Results - last 24 hr 05/09/17 05/09/17 05/09/17 Range/Units 18:53 21:04 22:03 Sodium 136 (135-145) mmol/L Potassium 4.1 (3.6-5.0) mmol/L Chloride 103 (101-111) mmol/L Carbon Dioxide 20.0 L (21.0-31.0) mmol/L Anion Gap 17.1 BUN 58 H (7-18) mg/dL Creatinine 2.3 H (0.6-1.3) mg/dL Est Cr Clr Drug Dosing 44.99 mL/min Estimated GFR (MDRD) 31 Glucose 253 H (74-105) mg/dL POC Glucose 126 H 210 H (70-105) mg/dl Calcium 8.6 (8.4-10.2) mg/dl 05/10/17 05/10/17 05/10/17 Range/Units 01:58 08:07 09:43 Sodium 137 (135-145) mmol/L Potassium 3.7 (3.6-5.0) mmol/L Chloride 104 (101-111) mmol/L Carbon Dioxide 25.0 (21.0-31.0) mmol/L Anion Gap 11.7 BUN 56 H (7-18) mg/dL Creatinine 2.2 H (0.6-1.3) mg/dL Est Cr Clr Drug Dosing 47.03 mL/min Estimated GFR (MDRD) 33 Glucose 140 H (74-105) mg/dL POC Glucose 41 L* 212 H (70-105) mg/dl Calcium 8.6 (8.4-10.2) mg/dl 05/10/17 05/10/17 05/10/17 Range/Units 11:09 13:32 15:37 Sodium 132 L (135-145) mmol/L Potassium 4.3 (3.6-5.0) mmol/L Chloride 100 L (101-111) mmol/L Carbon Dioxide 23.0 (21.0-31.0) mmol/L Anion Gap 13.3 BUN 46 H (7-18) mg/dL Creatinine 1.8 H (0.6-1.3) mg/dL Est Cr Clr Drug Dosing 57.48 mL/min Estimated GFR (MDRD) 41 Glucose 436 H* (74-105) mg/dL POC Glucose 290 H 266 H (70-105) mg/dl Calcium 8.3 L (8.4-10.2) mg/dl 05/10/17 05/10/17 Range/Units 16:40 17:25 Sodium 136 (135-145) mmol/L Potassium 3.6 (3.6-5.0) mmol/L Chloride 102 (101-111) mmol/L Carbon Dioxide 25.0 (21.0-31.0) mmol/L Anion Gap 12.6 BUN 39 H (7-18) mg/dL Creatinine 1.6 H (0.6-1.3) mg/dL Est Cr Clr Drug Dosing 64.67 mL/min Estimated GFR (MDRD) 47 Glucose 161 H (74-105) mg/dL POC Glucose 215 H (70-105) mg/dl Calcium 8.6 (8.4-10.2) mg/dl Med Orders - Current: Current Medications Acetaminophen (Tylenol) 650 mg PO Q6H PRN PRN Reason: Pain (Mild 1-3)/fever Al Hydroxide/Mg Hydroxide (Mag-Al Plus) 30 ml PO Q4H PRN PRN Reason: Dyspepsia Last Admin: 05/09/17 15:52 Dose: 30 ml Heparin Sodium (Porcine) (Heparin Sodium) 5,000 units SUBCUT Q12HR [facility] Last Admin: 05/10/17 08:51 Dose: 5,000 units Sodium Chloride (Normal Saline) 1,000 mls @ 150 mls/hr IV ASDIRECTED [facility] Last Admin: 05/10/17 17:46 Dose: 150 mls/hr Insulin Aspart (Novolog) 0 unit SUBCUT TIDMEALS [facility] PRN Reason: Protocol Last Admin: 05/10/17 17:18 Dose: Not Given Insulin Detemir (Levemir) 25 unit SUBCUT BEDTIME [facility] Last Admin: 05/09/17 20:22 Dose: 25 units Labetalol HCl (Normodyne) 200 mg PO BID [facility] Last Admin: 05/10/17 08:51 Dose: 200 mg Levothyroxine Sodium (Synthroid) 100 mcg PO BEDTIME [facility] Last Admin: 05/09/17 23:31 Dose: 100 mcg Ondansetron HCl (Zofran) 4 mg IV Q4H PRN PRN Reason: Nausea/Vomiting Pantoprazole Sodium (Protonix) 40 mg PO ACBREAKFAST [facility] Last Admin: 05/10/17 06:27 Dose: 40 mg Sertraline HCl (Zoloft) 25 mg PO BEDTIME [facility] Last Admin: 05/09/17 23:31 Dose: 25 mg Sodium Chloride (Saline Flush) 10 ml FLUSH ASDIRECTED PRN PRN Reason: Keep Vein Open Last Admin: 05/09/17 17:55 Dose: 10 ml Discontinued Medications Dextrose/Water (Dextrose 50% In Water) 50 ml IVPUSH ONETIME ONE Stop: 05/09/17 17:47 Last Admin: 05/09/17 17:53 Dose: 50 ml Sodium Chloride (Normal Saline) 1,000 mls @ 999 mls/hr IV .BOLUS ONE Stop: 05/09/17 10:40 Last Admin: 05/09/17 09:43 Dose: 999 mls/hr Insulin Human Regular 100 unit (/ Sodium Chloride) 100 mls @ 8.52 mls/hr IV TITRATE [facility]; 0.1 UNITS/KG/HR PRN Reason: Protocol Last Infusion: 05/09/17 17:19 Dose: 0.11 units/kg/hr, 10 mls/hr Sodium Chloride (Normal Saline) 1,000 mls @ 999 mls/hr IV .BOLUS ONE Stop: 05/09/17 11:33 Last Admin: 05/09/17 10:51 Dose: 999 mls/hr Sodium Chloride (Normal Saline) 1,000 mls @ 125 mls/hr IV ASDIRECTED [facility] Last Infusion: 05/09/17 15:00 Dose: 125 mls/hr Potassium Chloride/Dextrose/Sod Cl (D5 Ns With 20 Meq Kcl) 1,000 mls @ 100 mls/ hr IV ASDIRECTED [facility] Last Infusion: 05/09/17 19:30 Dose: 0 mls/hr Insulin Human Regular (Humulin R) 10 unit IV ONETIME ONE PRN Reason: Protocol Stop: 05/10/17 15:06 Last Admin: 05/10/17 15:15 Dose: Not Given Insulin Human Regular (Humulin R) 12 unit IV ONETIME ONE PRN Reason: Protocol Stop: 05/10/17 15:13 Last Admin: 05/10/17 15:21 Dose: Not Given Insulin Human Regular (Humulin R) 12 unit IV ONETIME ONE PRN Reason: Protocol Stop: 05/10/17 14:36 Last Admin: 05/10/17 15:23 Dose: 12 units Insulin Human Regular (Humulin R) 12 unit IV ONETIME ONE PRN Reason: Protocol Stop: 05/10/17 14:36 Last Admin: 05/10/17 15:33 Dose: Not Given Insulin Human Regular (Humulin R) 5 unit IV ONETIME STA PRN Reason: Protocol Stop: 05/10/17 15:43 Last Admin: 05/10/17 15:49 Dose: 5 units Insulin Human Regular (Humulin R) 5 unit IV ONETIME STA PRN Reason: Protocol Stop: 05/10/17 16:46 Last Admin: 05/10/17 16:47 Dose: 5 units Lisinopril (Prinivil) 10 mg PO BID [facility] Ondansetron HCl (Zofran) 4 mg IV ONETIME ONE Stop: 05/09/17 09:40 Last Admin: 05/09/17 09:42 Dose: 4 mg Ondansetron HCl (Zofran) Confirm Administered Dose 4 mg .ROUTE .STK-MED ONE Stop: 05/09/17 09:41 Last Admin: 05/09/17 09:42 Dose: Not Given Pantoprazole Sodium (Protonix) 40 mg PO ONETIME ONE Stop: 05/09/17 14:12 Last Admin: 05/09/17 14:50 Dose: 40 mg - Exam General: Reports: Alert, Oriented HEENT: Reports: Pupils Equal, Pupils Reactive, EOMI, Mucous Membr. Moist/[place] Neck: Reports: Supple Lungs: Reports: Clear to Auscultation, Normal Respiratory Effort Cardiovascular: Reports: Regular Rate, Regular Rhythm GI/Abdominal Exam: Normal Bowel Sounds, Soft, Non-Tender, No Organomegaly, No Distention, No Abnormal Bruit, No Mass, Pelvis Stable (Male) Exam: No Hernia, Normal Inspection, Normal Prostate, Circumcised Rectal (Males) Exam: Normal Exam, Normal Rectal Tone, Prostate Normal Back Exam: Reports: Normal Inspection, Full Range of Motion Extremities: Normal Inspection, Normal Range of Motion, Non-Tender, No Pedal Edema, Normal Capillary Refill Skin: Reports: Warm, Dry, Intact Wound/Incisions: Reports: Healing Well Neurological: Reports: No New Focal Deficit Psy/Mental Status: Reports: Alert, Normal Affect, Normal Mood *Q Meaningful Use (DIS) - VTE *Q VTE Criteria *Q: - Stroke *Q Stroke Criteria *Q: - AMI *Q AMI Criteria *Q:
--- NOTE | 2017-05-12 13:17 | EKG ---
05/09/2017 - CLAY BORJAS - This 12-lead EKG shows normal sinus rhythm with ventricular rate of 87. Normal axis and intervals. No acute ST-segment or T-wave changes. Wandering baseline in the precordial leads and in V1. [facility] /[id number]
--- NOTE | 2017-05-23 11:42 | CR ---
Clinical history: 42-year-old male chest pain. Interpretation: Negative exam. Normal cardiac silhouette without cephalization of flow, signs of alveolar edema or dependent pleural effusion. No lung mass, hilar lymphadenopathy or focal lobar pneumonia. No atelectasis/collapse. Caryn thorax unremarkable. No pneumothorax.
== END 2017-05-10 19:04 | disposition home or self-care (01) | DRG 420 ==
LOC: DL.ED 09:13 → DL.MS 11:50 → UNDOADMIN 11:50 → DL.MS 12:15
PROVIDERS: ADMIT Student in an Organized Health Care Education/Training Program; ATTEND Student in an Organized Health Care Education/Training Program
DX: E10.10 Type 1 diabetes mellitus with ketoacidosis without coma (principal); Z79.4 Long term (current) use of insulin; R11.2 Nausea with vomiting, unspecified; I10 Essential (primary) hypertension; E78.5 Hyperlipidemia, unspecified; F32.9 Major depressive disorder, single episode, unspecified; H54.7 Unspecified visual loss; E10.42 Type 1 diabetes mellitus with diabetic polyneuropathy; E03.9 Hypothyroidism, unspecified; Z79.899 Other long term (current) drug therapy; N17.9 Acute kidney failure, unspecified; D64.9 Anemia, unspecified
CPT/HCPCS: 36415; 36600; 71045; 80048; 80053; 82009; 82150; 82803; 82962; 83605; 83690; 83735; 84100; 84484; 85025; 87040; 87081; 87430; 87804; 93005; 96361; 96365; 96375; 99284; A9270-GY; J1644; J1815; J1815-GY; J2405; J3480; J7030; J7050; J7060

== ENCOUNTER 2018-05-29 01:46 | Emergency (ER) | payer BC, SELFPAY ==
[2018-05-29 01:51] VITALS: BP 139/92
--- NOTE | 2018-05-29 01:52 | EDM.PDOC ---
ED HPI GENERAL MEDICAL PROBLEM - General Stated Complaint: AMBULANCE-DIABETIC PROBLEM Time Seen by Provider: 05/29/18 01:48 Source of Information: Reports: Patient History Limitations: Reports: Altered Mental Status - History of Present Illness INITIAL COMMENTS - FREE TEXT/NARRATIVE: EMS arrived @ scene pt with BS 26, gave 2x D50 and BS 235 but repeat came down to 150s. family concerned pt's ental status is not normal. arrived states pt had prior BS low like this but usually comes out of it. states pt monitors his own BS. - Related Data Allergies Allergy/AdvReac Type Severity Reaction Status Date / Time No Known Allergies Allergy Verified 05/29/18 01:51 Home Meds: Home Meds Insulin Aspart [NovoLOG] 5 units SQ TIDMEALS 08/02/15 [History] Insulin Glarg,Human.Rec.Analog [Lantus] 25 units SQ BEDTIME 08/02/15 [History] atorvaSTATin Calcium [Atorvastatin Calcium] 10 mg PO BEDTIME 08/02/15 [History] Ferrous Sulfate 325 mg PO DAILY 05/09/17 [History] Labetalol HCl [Labetalol] 200 mg PO BID 05/09/17 [History] Latanoprost 1 drop EYELF BEDTIME 05/09/17 [History] Levothyroxine 100 mcg PO BEDTIME 05/09/17 [History] Losartan [Cozaar] 25 mg PO BEDTIME 05/09/17 [History] Sertraline HCl 25 mg PO BEDTIME 05/09/17 [History] Acetaminophen [Tylenol] 650 mg PO Q6H PRN tablet 05/10/17 [Rx] Alum Hydrox/Mag Hydrox/Simeth [Mag-Al Plus] 30 ml PO Q4H PRN cup 05/10/17 [Rx] Past Medical History HEENT History: Reports: Impaired Vision, Other (See Below) 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" Cardiovascular History: Reports: High Cholesterol, Hypertension Neurological History: Reports: Neuropathy, Peripheral Psychiatric History: Reports: Depression Endocrine/Metabolic History: Reports: Diabetes, Type I, Hypothyroidism Dermatologic History: Reports: Cellulitis - Past Surgical History Cardiovascular Surgical History: Reports: None Endocrine Surgical History: Reports: None Neurological Surgical History: Reports: None Social & Family History - Family History Family Medical History: Noncontributory - Caffeine Use Caffeine Use: Reports: Soda - Living Situation & Occupation Living situation: Reports: , with Family ED ROS GENERAL - Review of Systems Review Of Systems: ROS reveals no pertinent complaints other than HPI. - Physical Exam Exam: See Below Exam Limited By: No Limitations General Appearance: Alert, WD/WN, No Apparent Distress, Other (appears disoriented) Eye Exam: Left Eye: Other (left pupil irregualr, pt denies prior h/o.) Ears: Hearing Grossly Normal Throat/Mouth: Normal Voice, No Airway Compromise Head Exam: Atraumatic Neck: Non-Tender, Full Range of Motion Respiratory/Chest: No Respiratory Distress Cardiovascular: Regular Rate, Rhythm GI/Abdominal: Soft, Non-Tender Neuro Exam (Abbreviated): Alert, No Motor/Sensory Deficits, Confused Psychiatric: Flat Affect Skin Exam: Warm, Dry, Normal Color Course - Vital Signs Last Recorded V/S: Last Vital Signs Temp 35.9 C 05/29/18 01:50 Pulse 65 05/29/18 01:50 Resp 16 05/29/18 01:50 BP 139/92 H 05/29/18 01:50 Pulse Ox 97 05/29/18 01:50 - Orders/Labs/Meds Orders: Active Orders 24 hr Category Date Time Status Blood Glucose Check, Bedside [RC] ONETIME Care 05/29/18 06:07 Active Labs: Laboratory Tests 05/29/18 05/29/18 05/29/18 Range/Units 01:48 01:55 01:55 WBC 7.5 (5.0-10.0) 10^3/uL RBC 3.71 L (4.6-6.2) 10^6/uL Hgb 10.8 L (14.0-18.0) g/dL Hct 32.4 L (40.0-54.0) % MCV 87.3 (80-100) fL MCH 29.1 (27.0-34.0) pg MCHC 33.3 (33.0-35.0) g/dL Plt Count 262 (150-450) 10^3/uL Neut % (Auto) 60.5 (42.2-75.2) % Lymph % (Auto) 29.8 (20.5-50.1) % [place] % (Auto) 6.5 (2-8) % Eos % (Auto) 2.9 (1.0-3.0) % Baso % (Auto) 0.3 (0.0-1.0) % Sodium 138 (135-145) mmol/L Potassium 3.8 (3.6-5.0) mmol/L Chloride 102 (101-111) mmol/L Carbon Dioxide 24.0 (21.0-31.0) mmol/L Anion Gap 15.8 BUN 38 H (7-18) mg/dL Creatinine 1.6 H (0.6-1.3) mg/dL Est Cr Clr Drug Dosing 65.89 mL/min Estimated GFR (MDRD) 47 BUN/Creatinine Ratio 23.75 Glucose 130 H (74-105) mg/dL POC Glucose 152 H (70-105) mg/dl Lactic Acid (0.5-2.2) mmol/L Calcium 9.4 (8.4-10.2) mg/dl Total Bilirubin 0.9 (0.2-1.0) mg/dL AST 28 (10-42) IU/L ALT 16 (10-60) IU/L Alkaline Phosphatase 90 (42-121) IU/L Total Protein 7.4 (6.7-8.2) g/dl Albumin 3.7 (3.2-5.5) g/dl Globulin 3.7 Albumin/Globulin Ratio 1.00 Urine Color (YELLOW) Urine Appearance (CLEAR) Urine pH (5.0-9.0) Ur Specific [place] (1.005-1.030) Urine Protein (NEGATIVE) Urine Glucose (UA) (NEGATIVE) Urine Ketones (NEGATIVE) Urine Occult Blood (NEGATIVE) Urine Nitrite (NEGATIVE) Urine Bilirubin (NEGATIVE) Urine Urobilinogen (0.2-1.0) mg/dL Ur Leukocyte Esterase (NEGATIVE) Urine RBC /HPF Urine WBC (0-5/HPF) /HPF Ur Epithelial Cells /HPF Urine Bacteria (0-FEW/HPF) /HPF Urine Mucus /LPF Urine Other Urine Opiates Screen (NEGATIVE) Ur Oxycodone Screen (NEGATIVE) Urine Methadone Screen (NEGATIVE) Ur Barbiturates Screen (NEGATIVE) U Tricyclic Antidepress (NEGATIVE) Ur Phencyclidine Scrn (NEGATIVE) Ur Amphetamine Screen (NEGATIVE) U Methamphetamines Scrn (NEGATIVE) Urine MDMA Screen (NEGATIVE) U Benzodiazepines Scrn (NEGATIVE) Urine Cocaine Screen (NEGATIVE) U Marijuana (THC) Screen (NEGATIVE) Ethyl Alcohol mg/dL 05/29/18 05/29/18 05/29/18 Range/Units 01:55 01:55 02:46 WBC (5.0-10.0) 10^3/uL RBC (4.6-6.2) 10^6/uL Hgb (14.0-18.0) g/dL Hct (40.0-54.0) % MCV (80-100) fL MCH (27.0-34.0) pg MCHC (33.0-35.0) g/dL Plt Count (150-450) 10^3/uL Neut % (Auto) (42.2-75.2) % Lymph % (Auto) (20.5-50.1) % [place] % (Auto) (2-8) % Eos % (Auto) (1.0-3.0) % Baso % (Auto) (0.0-1.0) % Sodium (135-145) mmol/L Potassium (3.6-5.0) mmol/L Chloride (101-111) mmol/L Carbon Dioxide (21.0-31.0) mmol/L Anion Gap BUN (7-18) mg/dL Creatinine (0.6-1.3) mg/dL Est Cr Clr Drug Dosing mL/min Estimated GFR (MDRD) BUN/Creatinine Ratio Glucose (74-105) mg/dL POC Glucose 82 (70-105) mg/dl Lactic Acid 3.2 H (0.5-2.2) mmol/L Calcium (8.4-10.2) mg/dl Total Bilirubin (0.2-1.0) mg/dL AST (10-42) IU/L ALT (10-60) IU/L Alkaline Phosphatase (42-121) IU/L Total Protein (6.7-8.2) g/dl Albumin (3.2-5.5) g/dl Globulin Albumin/Globulin Ratio Urine Color (YELLOW) Urine Appearance (CLEAR) Urine pH (5.0-9.0) Ur Specific [place] (1.005-1.030) Urine Protein (NEGATIVE) Urine Glucose (UA) (NEGATIVE) Urine Ketones (NEGATIVE) Urine Occult Blood (NEGATIVE) Urine Nitrite (NEGATIVE) Urine Bilirubin (NEGATIVE) Urine Urobilinogen (0.2-1.0) mg/dL Ur Leukocyte Esterase (NEGATIVE) Urine RBC /HPF Urine WBC (0-5/HPF) /HPF Ur Epithelial Cells /HPF Urine Bacteria (0-FEW/HPF) /HPF Urine Mucus /LPF Urine Other Urine Opiates Screen (NEGATIVE) Ur Oxycodone Screen (NEGATIVE) Urine Methadone Screen (NEGATIVE) Ur Barbiturates Screen (NEGATIVE) U Tricyclic Antidepress (NEGATIVE) Ur Phencyclidine Scrn (NEGATIVE) Ur Amphetamine Screen (NEGATIVE) U Methamphetamines Scrn (NEGATIVE) Urine MDMA Screen (NEGATIVE) U Benzodiazepines Scrn (NEGATIVE) Urine Cocaine Screen (NEGATIVE) U Marijuana (THC) Screen (NEGATIVE) Ethyl Alcohol < 5 mg/dL 05/29/18 05/29/18 05/29/18 Range/Units 03:42 06:00 06:00 WBC (5.0-10.0) 10^3/uL RBC (4.6-6.2) 10^6/uL Hgb (14.0-18.0) g/dL Hct (40.0-54.0) % MCV (80-100) fL MCH (27.0-34.0) pg MCHC (33.0-35.0) g/dL Plt Count (150-450) 10^3/uL Neut % (Auto) (42.2-75.2) % Lymph % (Auto) (20.5-50.1) % [place] % (Auto) (2-8) % Eos % (Auto) (1.0-3.0) % Baso % (Auto) (0.0-1.0) % Sodium (135-145) mmol/L Potassium (3.6-5.0) mmol/L Chloride (101-111) mmol/L Carbon Dioxide (21.0-31.0) mmol/L Anion Gap BUN (7-18) mg/dL Creatinine (0.6-1.3) mg/dL Est Cr Clr Drug Dosing mL/min Estimated GFR (MDRD) BUN/Creatinine Ratio Glucose (74-105) mg/dL POC Glucose 154 H (70-105) mg/dl Lactic Acid (0.5-2.2) mmol/L Calcium (8.4-10.2) mg/dl Total Bilirubin (0.2-1.0) mg/dL AST (10-42) IU/L ALT (10-60) IU/L Alkaline Phosphatase (42-121) IU/L Total Protein (6.7-8.2) g/dl Albumin (3.2-5.5) g/dl Globulin Albumin/Globulin Ratio Urine Color Yellow (YELLOW) Urine Appearance Slightly cloudy (CLEAR) Urine pH 5.5 (5.0-9.0) Ur Specific [place] >= 1.030 (1.005-1.030) Urine Protein 100 H (NEGATIVE) Urine Glucose (UA) 500 H (NEGATIVE) Urine Ketones Negative (NEGATIVE) Urine Occult Blood Small H (NEGATIVE) Urine Nitrite Negative (NEGATIVE) Urine Bilirubin Negative (NEGATIVE) Urine Urobilinogen 0.2 (0.2-1.0) mg/dL Ur Leukocyte Esterase Negative (NEGATIVE) Urine RBC 0-5 /HPF Urine WBC 0-5 (0-5/HPF) /HPF Ur Epithelial Cells Rare /HPF Urine Bacteria Rare (0-FEW/HPF) /HPF Urine Mucus Rare /LPF Urine Other Urine Opiates Screen Negative (NEGATIVE) Ur Oxycodone Screen Negative (NEGATIVE) Urine Methadone Screen Negative (NEGATIVE) Ur Barbiturates Screen Negative (NEGATIVE) U Tricyclic Antidepress Negative (NEGATIVE) Ur Phencyclidine Scrn Negative (NEGATIVE) Ur Amphetamine Screen Negative (NEGATIVE) U Methamphetamines Scrn Positive H (NEGATIVE) Urine MDMA Screen Positive H (NEGATIVE) U Benzodiazepines Scrn Negative (NEGATIVE) Urine Cocaine Screen Negative (NEGATIVE) U Marijuana (THC) Screen Negative (NEGATIVE) Ethyl Alcohol mg/dL 05/29/18 Range/Units 06:23 WBC (5.0-10.0) 10^3/uL RBC (4.6-6.2) 10^6/uL Hgb (14.0-18.0) g/dL Hct (40.0-54.0) % MCV (80-100) fL MCH (27.0-34.0) pg MCHC (33.0-35.0) g/dL Plt Count (150-450) 10^3/uL Neut % (Auto) (42.2-75.2) % Lymph % (Auto) (20.5-50.1) % [place] % (Auto) (2-8) % Eos % (Auto) (1.0-3.0) % Baso % (Auto) (0.0-1.0) % Sodium (135-145) mmol/L Potassium (3.6-5.0) mmol/L Chloride (101-111) mmol/L Carbon Dioxide (21.0-31.0) mmol/L Anion Gap BUN (7-18) mg/dL Creatinine (0.6-1.3) mg/dL Est Cr Clr Drug Dosing mL/min Estimated GFR (MDRD) BUN/Creatinine Ratio Glucose (74-105) mg/dL POC Glucose 265 H (70-105) mg/dl Lactic Acid (0.5-2.2) mmol/L Calcium (8.4-10.2) mg/dl Total Bilirubin (0.2-1.0) mg/dL AST (10-42) IU/L ALT (10-60) IU/L Alkaline Phosphatase (42-121) IU/L Total Protein (6.7-8.2) g/dl Albumin (3.2-5.5) g/dl Globulin Albumin/Globulin Ratio Urine Color (YELLOW) Urine Appearance (CLEAR) Urine pH (5.0-9.0) Ur Specific [place] (1.005-1.030) Urine Protein (NEGATIVE) Urine Glucose (UA) (NEGATIVE) Urine Ketones (NEGATIVE) Urine Occult Blood (NEGATIVE) Urine Nitrite (NEGATIVE) Urine Bilirubin (NEGATIVE) Urine Urobilinogen (0.2-1.0) mg/dL Ur Leukocyte Esterase (NEGATIVE) Urine RBC /HPF Urine WBC (0-5/HPF) /HPF Ur Epithelial Cells /HPF Urine Bacteria (0-FEW/HPF) /HPF Urine Mucus /LPF Urine Other Urine Opiates Screen (NEGATIVE) Ur Oxycodone Screen (NEGATIVE) Urine Methadone Screen (NEGATIVE) Ur Barbiturates Screen (NEGATIVE) U Tricyclic Antidepress (NEGATIVE) Ur Phencyclidine Scrn (NEGATIVE) Ur Amphetamine Screen (NEGATIVE) U Methamphetamines Scrn (NEGATIVE) Urine MDMA Screen (NEGATIVE) U Benzodiazepines Scrn (NEGATIVE) Urine Cocaine Screen (NEGATIVE) U Marijuana (THC) Screen (NEGATIVE) Ethyl Alcohol mg/dL Meds: Medications Discontinued Medications Generic Name Dose Route Start Last Admin Trade Name Freq PRN Reason Stop Dose Admin Sodium Chloride 1,000 mls @ 999 mls/hr 05/29/18 04:11 05/29/18 04:31 Normal Saline IV 05/29/18 05:11 999 mls/hr .BOLUS ONE Administration - Re-Assessments/Exams Free Text/Narrative Re-Assessment/Exam: 05/29/18 02:47 repeat BS @ 82. states pt still not normal. 05/29/18 03:25 pt ate sandwich and jello and milk, states knows he is in Er and knows his . states will try to give urine. state pt usually back to normal quicker than this. 05/29/18 06:28 drug screen discussed with pt & spouse who is not happy and pt denies. repeat BS 265. pt alert and no distress. Departure - Departure Time of Disposition: 06:45 Disposition: Home, Self-Care 01 Condition: Fair Clinical Impression: Hypoglycemia - Discharge Information Instructions: Hypoglycemia, [id number] Referrals: PCP,Not In Area [Primary Care Provider] - Forms: ED Department Discharge Additional Instructions: 1) follow up with family doctor 2) recheck as needed - My Orders Last 24 Hours: My Active Orders 05/29/18 06:07 Blood Glucose Check, Bedside [RC] ONETIME - Assessment/Plan Last 24 Hours: My Active Orders 05/29/18 06:07 Blood Glucose Check, Bedside [RC] ONETIME
[2018-05-29 02:19] LABS: ANION GAP 15.8
[2018-05-29] MEDS ORDERED: Sodium Chloride 0.9% 1,000 ML IV ONE (04:11)
== END 2018-05-29 06:45 | disposition home or self-care (01) ==
LOC: DL.ED 01:46
DX: E10.649 Type 1 diabetes mellitus with hypoglycemia without coma (principal); I10 Essential (primary) hypertension; Z79.4 Long term (current) use of insulin; Z79.899 Other long term (current) drug therapy
CPT/HCPCS: 36415; 70450; 80053; 80305; 81001; 82962; 83605; 85025; 96360; 99284; G0480; J7030

== ENCOUNTER 2020-07-17 04:28 | Inpatient (IN) | payer MEDICARE, OTHER ==
[2020-07-17] MEDS ORDERED: Ondansetron 4 MG/2 ML SDV IVPUSH ONE (04:48)
[2020-07-17] MEDS ORDERED: Sodium Chloride 0.9% 1,000 ML IV ONE ×2 (04:48→07:42)
--- NOTE | 2020-07-17 04:53 | EDM.PDOC ---
<Amari Rivera M - Last Filed: 07/17/20 07:05> ED HPI GENERAL MEDICAL PROBLEM - General Chief Complaint: Gastrointestinal Problem Stated Complaint: BODY SHUTTING DOWN, DUE TO VACCINE, DIABETIC Time Seen by Provider: 07/17/20 04:45 Source of Information: Reports: Patient History Limitations: Reports: No Limitations - History of Present Illness INITIAL COMMENTS - FREE TEXT/NARRATIVE: This 45 yo male patient reports to the ED due to nausea, vomiting and diarrhea. The patient reports that he got a COVID vaccination last (07/13/20) and has been having symptoms since that time. The patient reports he has been vomiting every time he eats or drinks. The patient reports his blood sugars have been running "high" over the weekend. This morning the patient reports that his stomach feels like it is "burning up" while pointing to the epigastric area. Onset Date: 07/14/20 Duration: Constant Location: Reports: Abdomen Quality: Reports: Other Severity: Severe Improves with: Reports: None Worsens with: Reports: None Context: Reports: Other Associated Symptoms: Reports: Malaise, Nausea/Vomiting, Other (diarrhea) Abdomen Pain Score (Numeric/FACES): 7 - Related Data Allergies Allergy/AdvReac Type Severity Reaction Status Date / Time No Known Allergies Allergy Verified 05/29/18 01:51 Home Meds: Home Meds Insulin Aspart [NovoLOG] 14 units SQ TIDMEALS 08/02/15 [History] Insulin Glarg,Human.Rec.Analog [Lantus] 20 units SQ BEDTIME 08/02/15 [History] atorvaSTATin Calcium [Atorvastatin Calcium] 10 mg PO BEDTIME 08/02/15 [History] Labetalol HCl [Labetalol] 200 mg PO BID 05/09/17 [History] Latanoprost 1 drop EYEBOTH BEDTIME 05/09/17 [History] Levothyroxine 100 mcg PO ACBREAKFAST 05/09/17 [History] Losartan [Cozaar] 25 mg PO BEDTIME 05/09/17 [History] Acetaminophen [Tylenol] 650 mg PO Q6H PRN tablet 05/10/17 [Rx] Past Medical History HEENT History: Reports: Impaired Vision, Other (See Below) 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" Cardiovascular History: Reports: High Cholesterol, Hypertension Gastrointestinal History: Reports: GERD Neurological History: Reports: Neuropathy, Peripheral Psychiatric History: Reports: Depression Endocrine/Metabolic History: Reports: Diabetes, Type I, Hypothyroidism Dermatologic History: Reports: Cellulitis - Past Surgical History Cardiovascular Surgical History: Reports: None Endocrine Surgical History: Reports: None Neurological Surgical History: Reports: None Social & Family History - Family History Family Medical History: No Pertinent Family History - Caffeine Use Caffeine Use: Reports: Soda - Living Situation & Occupation Living situation: Reports: , with Family ED ROS GENERAL - Review of Systems Review Of Systems: Comprehensive ROS is negative, except as noted in HPI. ED EXAM, GI/ABD - Physical Exam Exam: See Below Exam Limited By: No Limitations General Appearance: Alert, WD/WN, Moderate Distress Eyes: Bilateral: Normal Appearance, EOMI Ears: Normal External Exam, Normal Canal, Hearing Grossly Normal, Normal TMs Nose: Normal Inspection, Normal Mucosa, No Blood Throat/Mouth: Normal Inspection, Normal Lips, Normal Teeth, Normal Gums, Normal Oropharynx, Normal Voice, No Airway Compromise Head: Atraumatic, Normocephalic Neck: Normal Inspection, Supple, Non-Tender, Full Range of Motion Respiratory/Chest: No Respiratory Distress, Lungs Clear, Normal Breath Sounds, No Accessory Muscle Use, Chest Non-Tender Cardiovascular: Normal Peripheral Pulses, Regular Rate, Rhythm, No Edema, No Gallop, No JVD, No Murmur, No Rub GI/Abdominal Exam: Normal Bowel Sounds, No Organomegaly, No Distention, No Abnormal Bruit, No Mass, Pelvis Stable, Tender (upper abdomen ) (Male) Exam: Deferred Rectal (Males) Exam: Deferred Back Exam: Normal Inspection, Full Range of Motion, NT Extremities: Normal Inspection, Normal Range of Motion, Non-Tender, Normal Capillary Refill, No Pedal Edema Neurological: Alert, Oriented, CN II-XII Intact, Normal Cognition, Normal Gait, Normal Reflexes, No Motor/Sensory Deficits Psychiatric: Normal Affect, Normal Mood Skin Exam: Warm, Dry, Intact, Normal Color, No Rash Lymphatic: No Adenopathy Departure - Departure Disposition: Admitted As Inpatient 64 Clinical Impression: DKA (diabetic ketoacidoses) Qualifiers: Diabetes mellitus type: type 1 Diabetes mellitus complication detail: without coma Qualified Code(s): E10.10 - Type 1 diabetes mellitus with ketoacidosis without coma - Discharge Information Forms: ED Department Discharge Sepsis Event Note (ED) - Evaluation Sepsis Screening Result: No Definite Risk <Amanda Andrade - Last Filed: 07/17/20 08:08> Course - Vital Signs Last Recorded V/S: Last Vital Signs Temp 99.8 F 07/17/20 07:45 Pulse 88 07/17/20 07:45 Resp 16 07/17/20 07:45 BP 140/91 H 07/17/20 07:45 Pulse Ox 98 07/17/20 07:45 - Orders/Labs/Meds Orders: Active Orders 24 hr Category Date Time Status Admission Diagnosis [ADT] Stat ADT 07/17/20 07:43 Ordered Admission Status [Patient Status] [ADT] Routine ADT 07/17/20 07:43 Active CULTURE BLOOD [BC] Stat Lab 07/17/20 05:33 Received CULTURE BLOOD [BC] Stat Lab 07/17/20 06:01 Received Sodium Chloride 0.9% [Normal Saline] 1,000 ml Med 07/17/20 07:42 Active IV .BOLUS Blood Culture x2 Reflex Set [OM.PC] Stat Oth 07/17/20 05:15 Ordered Medication Orders Sodium Chloride (Normal Saline) 1,000 mls @ 999 mls/hr IV .BOLUS ONE Stop: 07/17/20 08:42 Last Admin: 07/17/20 07:51 Dose: 999 mls/hr Documented by: CELESTINE Labs: Laboratory Tests 07/17/20 07/17/20 07/17/20 Range/Units 04:54 04:56 04:56 WBC 22.7 H (5.0-10.0) 10^3/uL RBC 4.45 L (4.6-6.2) 10^6/uL Hgb 13.2 L D (14.0-18.0) g/dL Hct 37.7 L (40.0-54.0) % MCV 84.7 (80-100) fL MCH 29.7 (27.0-34.0) pg MCHC 35.0 (33.0-35.0) g/dL Plt Count 253 (150-450) 10^3/uL Neut % (Auto) 87.7 H (42.2-75.2) % Lymph % (Auto) 5.5 L (20.5-50.1) % [place] % (Auto) 6.7 (2-8) % Eos % (Auto) 0.0 L (1.0-3.0) % Baso % (Auto) 0.1 (0.0-1.0) % ABG pH (7.35-7.45) ABG pCO2 (35-45) mmHg ABG pO2 (70-100) mmHg ABG HCO3 (22-26) mmol/L ABG O2 Saturation (95-100) % ABG Base Excess ((-2)-(+3)) mmol/L Sergio Test O2 Delivery Device Sodium 138 (136-145) mmol/L Potassium 3.6 (3.5-5.1) mmol/L Chloride 95 L (98-107) mmol/L Carbon Dioxide 26 (21-32) mmol/L Anion Gap 20.6 H (7-13) mEq/L BUN 75 H (7-18) mg/dL Creatinine 3.32 H (0.70-1.30) mg/dL Est Cr Clr Drug Dosing 30.19 mL/min Estimated GFR (MDRD) 20 BUN/Creatinine Ratio 22.6 (No establ ref range) Glucose 376 H (74-99) mg/dL Lactic Acid (0.4-2.0) mmol/L Calcium 9.5 (8.5-10.1) mg/dL Total Bilirubin 0.9 (0.2-1.0) mg/dL AST 15 (15-37) U/L ALT 19 (16-63) U/L Alkaline Phosphatase 124 H (46-116) U/L Total Protein 8.1 (6.4-8.2) g/dL Albumin 4.1 (3.4-5.0) g/dL Globulin 4.0 Albumin/Globulin Ratio 1.0 Amylase 76 (25-115) U/L Lipase 100 (73-393) U/L Ketones Positive Influenza Type A RNA (NEGATIVE) Influenza Type B RNA (NEGATIVE) SARS-CoV-2 RNA (NAHED) (NEGATIVE) 07/17/20 07/17/20 07/17/20 Range/Units 05:19 05:33 06:59 WBC (5.0-10.0) 10^3/uL RBC (4.6-6.2) 10^6/uL Hgb (14.0-18.0) g/dL Hct (40.0-54.0) % MCV (80-100) fL MCH (27.0-34.0) pg MCHC (33.0-35.0) g/dL Plt Count (150-450) 10^3/uL Neut % (Auto) (42.2-75.2) % Lymph % (Auto) (20.5-50.1) % [place] % (Auto) (2-8) % Eos % (Auto) (1.0-3.0) % Baso % (Auto) (0.0-1.0) % ABG pH 7.50 H (7.35-7.45) ABG pCO2 34 L (35-45) mmHg ABG pO2 92 (70-100) mmHg ABG HCO3 25.9 (22-26) mmol/L ABG O2 Saturation 98 (95-100) % ABG Base Excess 3 ((-2)-(+3)) mmol/L Sergio Test Performed O2 Delivery Device Room air Sodium (136-145) mmol/L Potassium (3.5-5.1) mmol/L Chloride (98-107) mmol/L Carbon Dioxide (21-32) mmol/L Anion Gap (7-13) mEq/L BUN (7-18) mg/dL Creatinine (0.70-1.30) mg/dL Est Cr Clr Drug Dosing mL/min Estimated GFR (MDRD) BUN/Creatinine Ratio (No establ ref range) Glucose (74-99) mg/dL Lactic Acid 2.2 H* (0.4-2.0) mmol/L Calcium (8.5-10.1) mg/dL Total Bilirubin (0.2-1.0) mg/dL AST (15-37) U/L ALT (16-63) U/L Alkaline Phosphatase (46-116) U/L Total Protein (6.4-8.2) g/dL Albumin (3.4-5.0) g/dL Globulin Albumin/Globulin Ratio Amylase (25-115) U/L Lipase (73-393) U/L Ketones Influenza Type A RNA Negative (NEGATIVE) Influenza Type B RNA Negative (NEGATIVE) SARS-CoV-2 RNA (NAHED) Negative (NEGATIVE) Meds: Medications Generic Name Dose Route Start Last Admin Trade Name Freq PRN Reason Stop Dose Admin Sodium Chloride 1,000 mls @ 999 mls/hr 07/17/20 07:42 07/17/20 07:51 Normal Saline IV 07/17/20 08:42 999 mls/hr .BOLUS ONE Administration Discontinued Medications Generic Name Dose Route Start Last Admin Trade Name Shanique PRN Reason Stop Dose Admin Sodium Chloride 1,000 mls @ 999 mls/hr 07/17/20 04:48 07/17/20 04:59 Normal Saline IV 07/17/20 05:48 999 mls/hr .BOLUS ONE Administration Ondansetron HCl 4 mg 07/17/20 04:48 07/17/20 04:59 Ondansetron 4 Mg/2 Ml Sdv IVPUSH 07/17/20 04:49 4 mg ONETIME ONE Administration - Radiology Interpretation Free Text/Narrative:: [facility] Final Radiology Report Call: [phone] assistance Online chat: [email or web address] Name: CLAY BORJAS Age: 45Years M Date: 07/17/2020 SSN: -- : [id number] Study: CT ABDOMEN PELVIS WO CONT Requesting Physician: Amari Rivera Images: [phone] Addl Studies: Provided Clinical History: abdominal pain Contrast: Without Contrast Medium: Contrast Amount: Contrast Method: Page 1 of 2 PROCEDURE INFORMATION: Exam: CT Abdomen And Pelvis Without Contrast Exam date and time: 07/17/2020 6:41 AM Age: 45 years old Clinical indication: Abdominal pain TECHNIQUE: Imaging protocol: Computed tomography of the abdomen and pelvis without contrast. Radiation optimization: All CT scans at this facility use at least one of these dose optimization techniques: automated exposure control; mA and/or kV adjustment per patient size (includes targeted exams where dose is matched to clinical indication); or iterative reconstruction. COMPARISON: No relevant prior studies available. FINDINGS: Liver: Normal. No mass. Gallbladder and bile ducts: Small layering gallstones or high-density sludge. Pancreas: Normal. No ductal dilation. Spleen: Normal. No splenomegaly. Adrenal glands: Normal. No mass. Kidneys and ureters: Few few nonobstructing right intrarenal calculi. No evidence of hydronephrosis or ureteral stones. Stomach and bowel: Unremarkable. No obstruction. No mucosal thickening. Appendix: The appendix is seen and is normal in appearance. Intraperitoneal space: Unremarkable. No free air. No significant fluid collection. Vasculature: Vascular calcifications are present. Lymph nodes: Unremarkable. No enlarged lymph nodes. Urinary bladder: Unremarkable as visualized. Reproductive: Unremarkable as visualized. Bones/joints: Unremarkable. No acute fracture. Soft tissues: Unremarkable. IMPRESSION: 1. Small layering gallstones or high-density sludge. 2. Few few nonobstructing right intrarenal calculi. No evidence of hydronephrosis or ureteral stones. 3. No definite evidence of acute abdominal or pelvic pathology. Remainder of findings as described above. Thank you for allowing us to participate in the care of your patient. Dictated and Authenticated by: Preethi Riggs MD 07/17/2020 7:11 AM Central Time ([place] & [place]) - Re-Assessments/Exams Free Text/Narrative Re-Assessment/Exam: 07/17/20 07:29 Psychiatric Security Nurse assumed care for patient from RYAN Galvan at [id number] Case further discussed with Dr. Tam who kindly agreed to accept patient for inpatient admission. Departure - Departure Time of Disposition: 08:07 Condition: Good Sepsis Event Note (ED) - Focused Exam Vital Signs: Vital Signs Temp Pulse Resp BP Pulse Ox 07/17/20 07:45 99.8 F 88 16 140/91 H 98 07/17/20 04:43 98.3 F 95 18 152/108 H 100 - My Orders Last 24 Hours: My Active Orders 07/17/20 07:42 Sodium Chloride 0.9% [Normal Saline] 1,000 ml IV .BOLUS 07/17/20 07:43 Admission Diagnosis [ADT] Stat Admission Status [Patient Status] [ADT] Routine - Assessment/Plan Last 24 Hours: My Active Orders 07/17/20 07:42 Sodium Chloride 0.9% [Normal Saline] 1,000 ml IV .BOLUS 07/17/20 07:43 Admission Diagnosis [ADT] Stat Admission Status [Patient Status] [ADT] Routine
[2020-07-17 05:18] LABS: ANION GAP 20.6 mEq/L (7-13); CHLORIDE,CL 95 mmol/L (98-107); SODIUM,NA 138 mmol/L (136-145)
[2020-07-17 06:02] LABS: CORONAVIRUS COVID-19 NAA NEGATIVE (NEGATIVE)
[2020-07-17 07:04] LABS: BASE EXCESS ARTERIAL 3 mmol/L ((-2)-(+3)); BICARBONATE,ARTERIAL 25.9 mmol/L (22-26); O2 DELIVERY DEVICE ROOM AIR; O2 SATURATION ARTERIAL 98 % (95-100); PCO2 ARTERIAL 34 mmHg (35-45); PO2 ARTERIAL 92 mmHg (70-100)
[2020-07-17 07:05] LABS: ALLEN TEST PERFORMED
--- NOTE | 2020-07-17 07:12 | CT ---
PROCEDURE INFORMATION: Exam: CT Abdomen And Pelvis Without Contrast Exam date and time: 07/17/2020 6:41 AM Age: 45 years old Clinical indication: Abdominal pain TECHNIQUE: Imaging protocol: Computed tomography of the abdomen and pelvis without contrast. Radiation optimization: All CT scans at this facility use at least one of these dose optimization techniques: automated exposure control; mA and/or kV adjustment per patient size (includes targeted exams where dose is matched to clinical indication); or iterative reconstruction. COMPARISON: No relevant prior studies available. FINDINGS: Liver: Normal. No mass. Gallbladder and bile ducts: Small layering gallstones or high-density sludge. Pancreas: Normal. No ductal dilation. Spleen: Normal. No splenomegaly. Adrenal glands: Normal. No mass. Kidneys and ureters: Few few nonobstructing right intrarenal calculi. No evidence of hydronephrosis or ureteral stones. Stomach and bowel: Unremarkable. No obstruction. No mucosal thickening. Appendix: The appendix is seen and is normal in appearance. Intraperitoneal space: Unremarkable. No free air. No significant fluid collection. Vasculature: Vascular calcifications are present. Lymph nodes: Unremarkable. No enlarged lymph nodes. Urinary bladder: Unremarkable as visualized. Reproductive: Unremarkable as visualized. Bones/joints: Unremarkable. No acute fracture. Soft tissues: Unremarkable. IMPRESSION: 1. Small layering gallstones or high-density sludge. 2. Few few nonobstructing right intrarenal calculi. No evidence of hydronephrosis or ureteral stones. 3. No definite evidence of acute abdominal or pelvic pathology. Remainder of findings as described above.
[2020-07-17] MEDS ORDERED: Ondansetron 4 MG/2 ML SDV IVPUSH PRN (10:20)
[2020-07-17] MEDS ORDERED: Acetaminophen 325 MG Tab PO PRN (10:20)
[2020-07-17] MEDS ORDERED: Glucagon,Human Recombinant 1 MG Vial IM PRN ×2 (10:27→11:42)
[2020-07-17] MEDS ORDERED: 50% Dextrose in Water 50 ML Syringe IV PRN ×2 (10:27→11:42)
[2020-07-17] MEDS: Sodium Chloride 0.45% 1,000 ML IV SCH ×3 (11:04→23:55)
[2020-07-17] MEDS ORDERED: Insulin Lispro 100 Units/ML 3 ML Vial SUBCUT SCH (12:00)
[2020-07-17] MEDS: Insulin Lispro 100 Units/ML 3 ML Vial SUBCUT SCH ×4 (14:06→21:31)
[2020-07-17] MEDS: Heparin Sodium 5,000 Units/ML Vial SUBCUT SCH ×2 (14:07→21:28)
--- NOTE | 2020-07-17 19:24 | PCM.HP ---
H&P History of Present Illness - General Date of Service: 07/17/20 Admit Problem/Dx: Admission Diagnosis/Problem Admission Diagnosis/Problem Acute kidney injury - History of Present Illness Initial Comments - Free Text/Narative: 45M w/ pmh type 1 DM c/b peripheral neuropathy, retinopathy and nephropathy, HT, HL, hypothyroidism p/w nausea and vomiting. Pt states he received the J&J COVID19 vaccine on 07/13 and since the evening of that day developed chills, nausea, vomiting and mild diarrhea. This has been worsening and he cannot keep anything down. Denies paradise abdominal pain or fevers. No body aches Of note pt's type 1 DM is grossly uncontrolled. His outpatient A1cs for past 2 years have been 10-11. Prior to that even 14. This is believed to be due to underdosing prandial insulin due to pt's fear of hypoglycemic episode. Furthermore his hypothyroidism is also uncontrolled w/ TSH rising from 7 to 14 when checked one month ago. Abdomen Pain Score (Numeric/FACES): 7 - Related Data Allergies/Adverse Reactions: Allergies Allergy/AdvReac Type Severity Reaction Status Date / Time No Known Allergies Allergy Verified 05/29/18 01:51 Home Medications: Home Meds Insulin Aspart [NovoLOG] 14 units SQ TIDMEALS 08/02/15 [History] Insulin Glarg,Human.Rec.Analog [Lantus] 15 units SQ BEDTIME 08/02/15 [History] atorvaSTATin Calcium [Atorvastatin Calcium] 10 mg PO BEDTIME 08/02/15 [History] Labetalol HCl [Labetalol] 200 mg PO BID 05/09/17 [History] Acetaminophen [Tylenol] 650 mg PO Q6H PRN tablet 05/10/17 [Rx] Levothyroxine 200 mcg PO ACBREAKFAST 07/17/20 [History] Losartan Potassium 100 mg PO DAILY 07/17/20 [History] hydroCHLOROthiazide [Hydrochlorothiazide] 25 mg PO DAILY 07/17/20 [History] Past Medical History HEENT History: Reports: Impaired Vision, Other (See Below) 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" Cardiovascular History: Reports: High Cholesterol, Hypertension Respiratory History: Reports: None Gastrointestinal History: Reports: GERD Genitourinary History: Reports: None Musculoskeletal History: Reports: None Neurological History: Reports: Neuropathy, Peripheral Psychiatric History: Reports: Depression Endocrine/Metabolic History: Reports: Diabetes, Type I, Hypothyroidism Hematologic History: Reports: None Immunologic History: Reports: None Oncologic (Cancer) History: Reports: None Dermatologic History: Reports: Cellulitis - Infectious Disease History Infectious Disease History: Reports: None - Past Surgical History Head Surgeries/Procedures: Reports: None Cardiovascular Surgical History: Reports: None Endocrine Surgical History: Reports: None Neurological Surgical History: Reports: None Dermatological Surgical History: Reports: None Social & Family History - Family History Family Medical History: No Pertinent Family History - Tobacco Use Tobacco Use Status *Q: Never Tobacco User Second Hand Smoke Exposure: No - Caffeine Use Caffeine Use: Reports: None - Recreational Drug Use Recreational Drug Use: No - Living Situation & Occupation Living situation: Reports: , with Family H&P Review of Systems - Review of Systems: Review Of Systems: See Below General: Reports: Chills, Weakness, Diaphoresis. Denies: Fever HEENT: Denies: Headaches Pulmonary: Denies: Shortness of Breath, Wheezing Cardiovascular: Denies: Chest Pain, Palpitations Gastrointestinal: Reports: Diarrhea, Nausea, Vomiting. Denies: Abdominal Pain Genitourinary: Denies: Dysuria Skin: Denies: Jaundice Psychiatric: Denies: Confusion Neurological: Reports: Dizziness Hematologic/Lymphatic: Denies: Easy Bleeding Exam - Exam Exam: See Below - Vital Signs Vital Signs: Last Vital Signs Temp 99.1 F 07/17/20 15:00 Pulse 77 07/17/20 15:00 Resp 20 07/17/20 15:00 BP 129/81 07/17/20 15:00 Pulse Ox 96 07/17/20 15:00 Weight: 171 lb 3.2 oz - Exam Quality Assessment: No: Supplemental Oxygen General: Alert, Oriented, Cooperative HEENT: Conjunctiva Clear Neck: Supple Lungs: Clear to Auscultation, Normal Respiratory Effort Cardiovascular: Regular Rate, Regular Rhythm GI/Abdominal Exam: Normal Bowel Sounds, Soft, Non-Tender, No Distention Back Exam: Normal Inspection Extremities: No Pedal Edema Skin: Warm, Dry Neurological: Cranial Nerves Intact Neuro Extensive - Mental Status: Alert, Oriented x3, Normal Mood/Affect Neuro Extensive - Motor, Sensory, Reflexes: No: Tremor Psychiatric: Alert, Normal Affect, Normal Mood - Patient Data Lab Results Last 24 hrs: Laboratory Results - last 24 hr 03/07/17/20 07/17/20 Range/Units 04:54 04:56 04:56 WBC 22.7 H (5.0-10.0) 10^3/uL RBC 4.45 L (4.6-6.2) 10^6/uL Hgb 13.2 L D (14.0-18.0) g/dL Hct 37.7 L (40.0-54.0) % MCV 84.7 (80-100) fL MCH 29.7 (27.0-34.0) pg MCHC 35.0 (33.0-35.0) g/dL Plt Count 253 (150-450) 10^3/uL Neut % (Auto) 87.7 H (42.2-75.2) % Lymph % (Auto) 5.5 L (20.5-50.1) % [place] % (Auto) 6.7 (2-8) % Eos % (Auto) 0.0 L (1.0-3.0) % Baso % (Auto) 0.1 (0.0-1.0) % ABG pH (7.35-7.45) ABG pCO2 (35-45) mmHg ABG pO2 (70-100) mmHg ABG HCO3 (22-26) mmol/L ABG O2 Saturation (95-100) % ABG Base Excess ((-2)-(+3)) mmol/L Sergio Test O2 Delivery Device Sodium 138 (136-145) mmol/L Potassium 3.6 (3.5-5.1) mmol/L Chloride 95 L (98-107) mmol/L Carbon Dioxide 26 (21-32) mmol/L Anion Gap 20.6 H (7-13) mEq/L BUN 75 H (7-18) mg/dL Creatinine 3.32 H (0.70-1.30) mg/dL Est Cr Clr Drug Dosing 30.19 mL/min Estimated GFR (MDRD) 20 BUN/Creatinine Ratio 22.6 (No establ ref range) Glucose 376 H (74-99) mg/dL POC Glucose (70-105) mg/dl Lactic Acid (0.4-2.0) mmol/L Calcium 9.5 (8.5-10.1) mg/dL Total Bilirubin 0.9 (0.2-1.0) mg/dL AST 15 (15-37) U/L ALT 19 (16-63) U/L Alkaline Phosphatase 124 H (46-116) U/L Total Protein 8.1 (6.4-8.2) g/dL Albumin 4.1 (3.4-5.0) g/dL Globulin 4.0 Albumin/Globulin Ratio 1.0 Amylase 76 (25-115) U/L Lipase 100 (73-393) U/L Ketones Positive Influenza Type A RNA (NEGATIVE) Influenza Type B RNA (NEGATIVE) SARS-CoV-2 RNA (NAHED) (NEGATIVE) 07/17/20 07/17/20 07/17/20 Range/Units 05:19 05:33 06:59 WBC (5.0-10.0) 10^3/uL RBC (4.6-6.2) 10^6/uL Hgb (14.0-18.0) g/dL Hct (40.0-54.0) % MCV (80-100) fL MCH (27.0-34.0) pg MCHC (33.0-35.0) g/dL Plt Count (150-450) 10^3/uL Neut % (Auto) (42.2-75.2) % Lymph % (Auto) (20.5-50.1) % [place] % (Auto) (2-8) % Eos % (Auto) (1.0-3.0) % Baso % (Auto) (0.0-1.0) % ABG pH 7.50 H (7.35-7.45) ABG pCO2 34 L (35-45) mmHg ABG pO2 92 (70-100) mmHg ABG HCO3 25.9 (22-26) mmol/L ABG O2 Saturation 98 (95-100) % ABG Base Excess 3 ((-2)-(+3)) mmol/L Sergio Test Performed O2 Delivery Device Room air Sodium (136-145) mmol/L Potassium (3.5-5.1) mmol/L Chloride (98-107) mmol/L Carbon Dioxide (21-32) mmol/L Anion Gap (7-13) mEq/L BUN (7-18) mg/dL Creatinine (0.70-1.30) mg/dL Est Cr Clr Drug Dosing mL/min Estimated GFR (MDRD) BUN/Creatinine Ratio (No establ ref range) Glucose (74-99) mg/dL POC Glucose (70-105) mg/dl Lactic Acid 2.2 H* (0.4-2.0) mmol/L Calcium (8.5-10.1) mg/dL Total Bilirubin (0.2-1.0) mg/dL AST (15-37) U/L ALT (16-63) U/L Alkaline Phosphatase (46-116) U/L Total Protein (6.4-8.2) g/dL Albumin (3.4-5.0) g/dL Globulin Albumin/Globulin Ratio Amylase (25-115) U/L Lipase (73-393) U/L Ketones Influenza Type A RNA Negative (NEGATIVE) Influenza Type B RNA Negative (NEGATIVE) SARS-CoV-2 RNA (NAHED) Negative (NEGATIVE) 07/17/20 07/17/20 07/17/20 Range/Units 11:38 14:01 16:03 WBC (5.0-10.0) 10^3/uL RBC (4.6-6.2) 10^6/uL Hgb (14.0-18.0) g/dL Hct (40.0-54.0) % MCV (80-100) fL MCH (27.0-34.0) pg MCHC (33.0-35.0) g/dL Plt Count (150-450) 10^3/uL Neut % (Auto) (42.2-75.2) % Lymph % (Auto) (20.5-50.1) % [place] % (Auto) (2-8) % Eos % (Auto) (1.0-3.0) % Baso % (Auto) (0.0-1.0) % ABG pH (7.35-7.45) ABG pCO2 (35-45) mmHg ABG pO2 (70-100) mmHg ABG HCO3 (22-26) mmol/L ABG O2 Saturation (95-100) % ABG Base Excess ((-2)-(+3)) mmol/L Sergio Test O2 Delivery Device Sodium (136-145) mmol/L Potassium (3.5-5.1) mmol/L Chloride (98-107) mmol/L Carbon Dioxide (21-32) mmol/L Anion Gap (7-13) mEq/L BUN (7-18) mg/dL Creatinine (0.70-1.30) mg/dL Est Cr Clr Drug Dosing mL/min Estimated GFR (MDRD) BUN/Creatinine Ratio (No establ ref range) Glucose (74-99) mg/dL POC Glucose 409 H* 317 H 168 H (70-105) mg/dl Lactic Acid (0.4-2.0) mmol/L Calcium (8.5-10.1) mg/dL Total Bilirubin (0.2-1.0) mg/dL AST (15-37) U/L ALT (16-63) U/L Alkaline Phosphatase (46-116) U/L Total Protein (6.4-8.2) g/dL Albumin (3.4-5.0) g/dL Globulin Albumin/Globulin Ratio Amylase (25-115) U/L Lipase (73-393) U/L Ketones Influenza Type A RNA (NEGATIVE) Influenza Type B RNA (NEGATIVE) SARS-CoV-2 RNA (NAHED) (NEGATIVE) 07/17/20 Range/Units 17:34 WBC (5.0-10.0) 10^3/uL RBC (4.6-6.2) 10^6/uL Hgb (14.0-18.0) g/dL Hct (40.0-54.0) % MCV (80-100) fL MCH (27.0-34.0) pg MCHC (33.0-35.0) g/dL Plt Count (150-450) 10^3/uL Neut % (Auto) (42.2-75.2) % Lymph % (Auto) (20.5-50.1) % [place] % (Auto) (2-8) % Eos % (Auto) (1.0-3.0) % Baso % (Auto) (0.0-1.0) % ABG pH (7.35-7.45) ABG pCO2 (35-45) mmHg ABG pO2 (70-100) mmHg ABG HCO3 (22-26) mmol/L ABG O2 Saturation (95-100) % ABG Base Excess ((-2)-(+3)) mmol/L Sergio Test O2 Delivery Device Sodium (136-145) mmol/L Potassium (3.5-5.1) mmol/L Chloride (98-107) mmol/L Carbon Dioxide (21-32) mmol/L Anion Gap (7-13) mEq/L BUN (7-18) mg/dL Creatinine (0.70-1.30) mg/dL Est Cr Clr Drug Dosing mL/min Estimated GFR (MDRD) BUN/Creatinine Ratio (No establ ref range) Glucose (74-99) mg/dL POC Glucose 195 H (70-105) mg/dl Lactic Acid (0.4-2.0) mmol/L Calcium (8.5-10.1) mg/dL Total Bilirubin (0.2-1.0) mg/dL AST (15-37) U/L ALT (16-63) U/L Alkaline Phosphatase (46-116) U/L Total Protein (6.4-8.2) g/dL Albumin (3.4-5.0) g/dL Globulin Albumin/Globulin Ratio Amylase (25-115) U/L Lipase (73-393) U/L Ketones Influenza Type A RNA (NEGATIVE) Influenza Type B RNA (NEGATIVE) SARS-CoV-2 RNA (NAHED) (NEGATIVE) Result Diagrams: 07/17/20 04:56 07/17/20 04:56 Problem List Initiated/Reviewed/Updated: No Orders Last 24hrs: Active Orders 24 hr Category Date Time Status Admission Diagnosis [ADT] Stat ADT 07/17/20 07:43 Ordered Admission Status [Patient Status] [ADT] Routine ADT 07/17/20 07:43 Active Patient Status [ADT] Routine ADT 07/17/20 10:20 Active Blood Glucose Check, Bedside [RC] QIDACANDBED Care 07/17/20 10:20 Active Oxygen Therapy [RC] PRN Care 07/17/20 10:20 Active Up ad Liliana [RC] ASDIRECTED Care 07/17/20 10:20 Active VTE/DVT Education [RC] PER UNIT ROUTINE Care 07/17/20 10:20 Active Vital Signs [RC] Q4H Care 07/17/20 10:20 Active Clear Liquid Diet [DIET] Diet 07/17/20 Lunch Active BASIC METABOLIC PANEL,BMP [CHEM] AM Lab 07/18/20 05:11 Ordered CBC WITH AUTO DIFF [HEME] AM Lab 07/18/20 05:11 Ordered CULTURE BLOOD [BC] Stat Lab 07/17/20 05:33 Received CULTURE BLOOD [BC] Stat Lab 07/17/20 06:01 Received MAGNESIUM [CHEM] AM Lab 07/18/20 05:11 Ordered PHOSPHORUS [CHEM] AM Lab 07/18/20 05:11 Ordered Acetaminophen [TylenoL] Med 07/17/20 10:20 Active 650 mg PO Q4H PRN Dextrose 50% in Water Med 07/17/20 10:27 Active 50 ml IV ASDIRECTED PRN Glucagon,Human Recombinant [GlucaGen] Med 07/17/20 10:27 Active 1 mg IM ASDIRECTED PRN Heparin Sodium Med 07/17/20 14:00 Active 5,000 units SUBCUT Q8HR Insulin Glarg,Human.Rec.Analog [LantUS] Med 07/17/20 21:00 Active 15 unit SUBCUT BEDTIME Insulin Lispro [HumaLOG] Med 07/17/20 21:00 Ordered See Protocol SUBCUT WITHMEALSANDBED Labetalol [Normodyne] Med 07/17/20 21:00 Active 200 mg PO BID Levothyroxine [Synthroid] Med 07/18/20 06:00 Active 200 mcg PO ACBREAKFAST Ondansetron [Zofran] Med 07/17/20 10:20 Active 4 mg IVPUSH Q6H PRN Sodium Chloride 0.45% 1,000 ml Med 07/17/20 10:30 Active IV ASDIRECTED Blood Culture x2 Reflex Set [OM.PC] Stat Oth 07/17/20 05:15 Ordered Resuscitation Status Routine Resus Stat 07/17/20 10:20 Ordered Medication Orders Acetaminophen (Acetaminophen 325 Mg Tab) 650 mg PO Q4H PRN PRN Reason: Pain (Mild 1-3)/fever Dextrose/Water (50% Dextrose In Water 50 Ml Syringe) 50 ml IV ASDIRECTED PRN PRN Reason: Hypoglycemia Glucagon (Glucagon,Human Recombinant 1 Mg Vial) 1 mg IM ASDIRECTED PRN PRN Reason: Hypoglycemia Heparin Sodium (Porcine) (Heparin Sodium 5,000 Units/Ml Vial) 5,000 units SUBCUT Q8HR REPLACED BY [facility] Last Admin: 07/17/20 14:07 Dose: 5,000 units Documented by: ANNE-MARIE Sodium Chloride (Sodium Chloride 0.45%) 1,000 mls @ 150 mls/hr IV ASDIRECTED REPLACED BY [facility] Last Admin: 07/17/20 17:46 Dose: 150 mls/hr Documented by: Infusion: 07/17/20 17:44 Dose: 150 mls/hr Documented by: Infusion: 07/17/20 17:42 Dose: 150 mls/hr Documented by: Admin: 07/17/20 11:04 Dose: 150 mls/hr Documented by: ANNE-MARIE Insulin Glargine (Insulin Glarg,Human.Rec.Analog 100 Unit/Ml) 15 unit SUBCUT BEDTIME [facility] Insulin Human Lispro (Insulin Lispro 100 Units/Ml 3 Ml Vial) 0 unit SUBCUT WITHMEALSANDBED [facility]; Protocol Labetalol HCl (Labetalol 100 Mg Tab) 200 mg PO BID [facility] Levothyroxine Sodium (Levothyroxine 100 Mcg Tab) 200 mcg PO ACBREAKFAST [facility] Ondansetron HCl (Ondansetron 4 Mg/2 Ml Sdv) 4 mg IVPUSH Q6H PRN PRN Reason: Nausea/Vomiting Assessment/Plan Comment:: #KASSY on CKD2 - pt's baseline Cr is 1.3-1.7 - now is 3.5 - this is likely pre- renal - will hydrate aggressively - will use 1/2 NS to avoid hyperchloremic acidosis #N/V/D/generalized symptoms - CT neg - no other apparent infection - likely rela michelle to vaccine #uncontrolled DM1 - he is not in DKA but was likely close to it - q2h LIA for most of the day - then can liberalize - he was counseled on importance of good glycemic control as outpatient and advised to see endo referral for an insulin pump #HT / HL - c/w home meds #hypothyroidism - now is a bad time to recheck TSH given acute illness PPX - SQH Full code
[2020-07-17] MEDS ORDERED: Insulin Glarg,Human.Rec.Analog 100 Unit/ML SUBCUT SCH (21:00)
[2020-07-17] MEDS: Labetalol 100 MG Tab PO SCH (21:28)
[2020-07-18] MEDS: Heparin Sodium 5,000 Units/ML Vial SUBCUT SCH (05:33)
[2020-07-18] MEDS ORDERED: Levothyroxine 100 MCG Tab PO SCH (06:00)
[2020-07-18 06:31] LABS: ANION GAP 12.3 mEq/L (7-13)
[2020-07-18 08:26] VITALS: BP 174/95
[2020-07-18] MEDS: Insulin Lispro 100 Units/ML 3 ML Vial SUBCUT SCH (09:20)
[2020-07-18] MEDS: Labetalol 100 MG Tab PO SCH (09:21)
[2020-07-18 09:22] VITALS: PULSE 78
--- NOTE | 2020-07-18 17:52 | PCM.DCSUM1 ---
Discharge Summary - Hospital Course Free Text/Narrative:: 45M w/ pmh type 1 DM c/b peripheral neuropathy, retinopathy and nephropathy, HT, HL, hypothyroidism p/w nausea and vomiting. Pt states he received the J&J COVID19 vaccine on 07/13 and since the evening of that day developed chills, nausea, vomiting and mild diarrhea. This has been worsening and he cannot keep anything down. Denies paradise abdominal pain or fevers. No body aches Pt received copious IVF resuscitation w/ overnight return to baseline of his kidney function. All of his GI symptoms resolved. Of note pt's type 1 DM is grossly uncontrolled. His outpatient A1cs for past 2 years have been 10-11. Prior to that even 14. This is believed to be due to underdosing prandial insulin due to pt's fear of hypoglycemic episode. We also noted that his external glucose monitor is not calibrated and read 50-70 lower than the hospital FSG readings. His manager of finance office was notified. Furthermore his hypothyroidism is also uncontrolled w/ TSH rising from 7 to 14 when checked one month ago. - Discharge Data Discharge Date: 07/18/20 Discharge Disposition: Home, Self-Care 01 Condition: Good - Referral to Home Health Primary Care Physician: Moises Wilder MD - Discharge Plan *PRESCRIPTION DRUG MONITORING PROGRAM REVIEWED*: Not Applicable *COPY OF PRESCRIPTION DRUG MONITORING REPORT IN PATIENT FRANCES: Not Applicable Home Medications: Home Meds Insulin Aspart [NovoLOG] 14 units SQ TIDMEALS 08/02/15 [History] Insulin Glarg,Human.Rec.Analog [Lantus] 15 units SQ BEDTIME 08/02/15 [History] atorvaSTATin Calcium [Atorvastatin Calcium] 10 mg PO BEDTIME 08/02/15 [History] Labetalol HCl [Labetalol] 200 mg PO BID 05/09/17 [History] Acetaminophen [Tylenol] 650 mg PO Q6H PRN tablet 05/10/17 [Rx] Levothyroxine 200 mcg PO ACBREAKFAST 07/17/20 [History] Losartan Potassium 100 mg PO DAILY 07/17/20 [History] hydroCHLOROthiazide [Hydrochlorothiazide] 25 mg PO DAILY 07/17/20 [History] Patient Handouts: Acute Kidney Injury, Adult, Diabetes Mellitus and Nutrition, Adult Forms: ED Department Discharge Referrals: Onyeakazi,Jean Marie, [employer]PER[employer] [Nurse Practitioner] - - Discharge Summary/Plan Comment DC Time >30 min.: Yes (40 min) - Patient Data Vitals - Most Recent: Last Vital Signs Temp 97.7 F 07/18/20 08:00 Pulse 78 07/18/20 09:21 Resp 18 07/18/20 08:00 BP 174/95 H 07/18/20 09:21 Pulse Ox 99 07/18/20 10:20 Weight - Most Recent: 171 lb 3.2 oz I&O - Last 24 hours: Intake & Output 07/18/20 07/18/20 07/18/20 06:59 14:59 22:59 Intake Total 1695 Balance 1695 Lab Results - Last 24 hrs: Laboratory Results - last 24 hr 07/17/20 07/18/20 07/18/20 Range/Units 20:51 05:47 05:47 WBC 12.2 H (5.0-10.0) 10^3/uL RBC 3.54 L (4.6-6.2) 10^6/uL Hgb 10.5 L D (14.0-18.0) g/dL Hct 31.1 L (40.0-54.0) % MCV 87.9 D (80-100) fL MCH 29.7 (27.0-34.0) pg MCHC 33.8 (33.0-35.0) g/dL Plt Count 192 (150-450) 10^3/uL Neut % (Auto) 74.3 (42.2-75.2) % Lymph % (Auto) 18.0 L (20.5-50.1) % [place] % (Auto) 7.5 (2-8) % Eos % (Auto) 0.0 L (1.0-3.0) % Baso % (Auto) 0.2 (0.0-1.0) % Sodium 139 (136-145) mmol/L Potassium 3.3 L (3.5-5.1) mmol/L Chloride 101 (98-107) mmol/L Carbon Dioxide 29 (21-32) mmol/L Anion Gap 12.3 (7-13) mEq/L BUN 38 H D (7-18) mg/dL Creatinine 1.51 H D (0.70-1.30) mg/dL Est Cr Clr Drug Dosing 66.38 mL/min Estimated GFR (MDRD) 50 Glucose 157 H (74-99) mg/dL POC Glucose 199 H (70-105) mg/dl Calcium 8.2 L (8.5-10.1) mg/dL Phosphorus 3.0 (2.6-4.7) mg/dL Magnesium 1.9 (1.8-2.4) mg/dL 07/18/20 Range/Units 08:02 WBC (5.0-10.0) 10^3/uL RBC (4.6-6.2) 10^6/uL Hgb (14.0-18.0) g/dL Hct (40.0-54.0) % MCV (80-100) fL MCH (27.0-34.0) pg MCHC (33.0-35.0) g/dL Plt Count (150-450) 10^3/uL Neut % (Auto) (42.2-75.2) % Lymph % (Auto) (20.5-50.1) % [place] % (Auto) (2-8) % Eos % (Auto) (1.0-3.0) % Baso % (Auto) (0.0-1.0) % Sodium (136-145) mmol/L Potassium (3.5-5.1) mmol/L Chloride (98-107) mmol/L Carbon Dioxide (21-32) mmol/L Anion Gap (7-13) mEq/L BUN (7-18) mg/dL Creatinine (0.70-1.30) mg/dL Est Cr Clr Drug Dosing mL/min Estimated GFR (MDRD) Glucose (74-99) mg/dL POC Glucose 242 H (70-105) mg/dl Calcium (8.5-10.1) mg/dL Phosphorus (2.6-4.7) mg/dL Magnesium (1.8-2.4) mg/dL SALLY Results - Last 24 hrs: Microbiology 07/17/20 06:01 Aerobic Blood Culture - Preliminary Blood - Venous - Lab Draw NO GROWTH AFTER 1 DAY Anaerobic Blood Culture - Preliminary NO GROWTH AFTER 1 DAY 07/17/20 05:33 Aerobic Blood Culture - Preliminary Blood - Arm, Left NO GROWTH AFTER 1 DAY Anaerobic Blood Culture - Preliminary NO GROWTH AFTER 1 DAY Med Orders - Current: Current Medications Discontinued Medications Acetaminophen (Acetaminophen 325 Mg Tab) 650 mg PO Q4H PRN PRN Reason: Pain (Mild 1-3)/fever Dextrose/Water (50% Dextrose In Water 50 Ml Syringe) 50 ml IV ASDIRECTED PRN PRN Reason: Hypoglycemia Glucagon (Glucagon,Human Recombinant 1 Mg Vial) 1 mg IM ASDIRECTED PRN PRN Reason: Hypoglycemia Heparin Sodium (Porcine) (Heparin Sodium 5,000 Units/Ml Vial) 5,000 units SUBCUT Q8HR [facility] Last Admin: 07/18/20 05:33 Dose: 5,000 units Documented by: Sodium Chloride (Normal Saline) 1,000 mls @ 999 mls/hr IV .BOLUS ONE Stop: 07/17/20 05:48 Last Admin: 07/17/20 04:59 Dose: 999 mls/hr Documented by: Sodium Chloride (Normal Saline) 1,000 mls @ 999 mls/hr IV .BOLUS ONE Stop: 07/17/20 08:42 Last Admin: 07/17/20 07:51 Dose: 999 mls/hr Documented by: Sodium Chloride (Sodium Chloride 0.45%) 1,000 mls @ 150 mls/hr IV ASDIRECTED [facility] Last Admin: 07/17/20 23:55 Dose: 150 mls/hr Documented by: Insulin Glargine (Insulin Glarg,Human.Rec.Analog 100 Unit/Ml) 15 unit SUBCUT BEDTIME [facility] Last Admin: 07/17/20 21:29 Dose: 15 units Documented by: Insulin Human Lispro (Insulin Lispro 100 Units/Ml 3 Ml Vial) 0 unit SUBCUT WITHMEALSANDBED [facility]; Protocol Last Admin: 07/17/20 12:01 Dose: 15 units Documented by: Insulin Human Lispro (Insulin Lispro 100 Units/Ml 3 Ml Vial) 0 unit SUBCUT Q2H [facility]; Protocol Last Admin: 07/17/20 19:13 Dose: Not Given Documented by: Insulin Human Lispro (Insulin Lispro 100 Units/Ml 3 Ml Vial) 0 unit SUBCUT WITHMEALSANDBED [facility]; Protocol Last Admin: 07/18/20 09:20 Dose: 4 units Documented by: Labetalol HCl (Labetalol 100 Mg Tab) 200 mg PO BID [facility] Last Admin: 07/18/20 09:21 Dose: 200 mg Documented by: Levothyroxine Sodium (Levothyroxine 100 Mcg Tab) 200 mcg PO ACBREAKFAST [facility] Last Admin: 07/18/20 05:33 Dose: 200 mcg Documented by: Ondansetron HCl (Ondansetron 4 Mg/2 Ml Sdv) 4 mg IVPUSH ONETIME ONE Stop: 07/17/20 04:49 Last Admin: 07/17/20 04:59 Dose: 4 mg Documented by: Ondansetron HCl (Ondansetron 4 Mg/2 Ml Sdv) 4 mg IVPUSH Q6H PRN PRN Reason: Nausea/Vomiting - Exam Quality Assessment: Denies: Supplemental Oxygen General: Reports: Alert, Oriented, Cooperative HEENT: Reports: Pupils Equal, Pupils Reactive Neck: Reports: Supple Lungs: Reports: Clear to Auscultation, Normal Respiratory Effort Cardiovascular: Reports: Regular Rate, Regular Rhythm, No Murmurs GI/Abdominal Exam: Normal Bowel Sounds, Soft, Non-Tender, No Distention Back Exam: Reports: Normal Inspection Extremities: No Pedal Edema Skin: Reports: Warm, Dry Neurological: Reports: No New Focal Deficit Psy/Mental Status: Reports: Alert, Normal Affect, Normal Mood
== END 2020-07-18 11:50 | disposition home or self-care (01) | DRG 684 ==
LOC: DL.ED 04:28 → DL.MS 07:43 → DL.ED 07:50
PROVIDERS: ADMIT Internal Medicine; ATTEND Internal Medicine
DX: E10.10 Type 1 diabetes mellitus with ketoacidosis without coma (principal); N17.9 Acute kidney failure, unspecified; E10.65 Type 1 diabetes mellitus with hyperglycemia; E78.5 Hyperlipidemia, unspecified; E03.9 Hypothyroidism, unspecified; E10.40 Type 1 diabetes mellitus with diabetic neuropathy, unspecified; F32.9 Major depressive disorder, single episode, unspecified; H54.7 Unspecified visual loss; I12.9 Hypertensive chronic kidney disease with stage 1 through stage 4 chronic kidney disease, or unspecified chronic kidney disease; Z79.4 Long term (current) use of insulin; N18.2 Chronic kidney disease, stage 2 (mild); E78.00 Pure hypercholesterolemia, unspecified; K21.9 Gastro-esophageal reflux disease without esophagitis; E10.42 Type 1 diabetes mellitus with diabetic polyneuropathy; Z20.822 Contact with and (suspected) exposure to COVID-19; E10.21 Type 1 diabetes mellitus with diabetic nephropathy; E10.319 Type 1 diabetes mellitus with unspecified diabetic retinopathy without macular edema; T38.3X6A Underdosing of insulin and oral hypoglycemic [antidiabetic] drugs, initial encounter; Z79.899 Other long term (current) drug therapy; Z91.128 Patient's intentional underdosing of medication regimen for other reason; Z79.890 Hormone replacement therapy
CPT/HCPCS: 0240U; 36415; 36600; 74176; 80048; 80053; 82009; 82150; 82803; 82962; 83605; 83690; 83735; 84100; 85025; 87040; 96374; 99223; 99239; 99284; 99285; A9270-GY; J1644; J1815-GY; J2405; J7030

== ENCOUNTER 2020-07-27 06:51 | Day surgery (SDC) | payer MEDICARE, OTHER ==
[~2020-07-27 06:51] MED LIST: Midazolam 1 MG/ML 2 ML SDV ONE; fentaNYL 100 MCG/2 ML SDV ONE
[2020-07-27] MEDS ORDERED: fentaNYL 100 MCG/2 ML SDV IV ONE ×3 (06:52→08:08)
[2020-07-27] MEDS ORDERED: Midazolam 1 MG/ML 2 ML SDV IV ONE ×3 (06:52→08:09)
[2020-07-27] MEDS ORDERED: Dextrose 5%-0.45% NaCl 1,000 ML IV SCH (07:15)
[2020-07-27] MEDS ORDERED: Sodium Chloride 0.9% 1,000 ML IV SCH (08:11)
[2020-07-27 10:38] VITALS: BP 125/87; PULSE 81
--- NOTE | 2020-07-27 14:55 | OR ---
DATE: 07/27/2020 PROCEDURES: Esophagogastroduodenoscopy, narrow-band imaging, multiple pinch biopsies, and brush biopsy. INSTRUMENT USED: GIF-HQ190 Olympus video panendoscope. PREMEDICATIONS: No oral or topical anesthesia used. Fentanyl 100 mcg intravenous, Versed 2 mg intravenous. Nasal O2 cannula. The procedure was done under pulse oximetry, BP recording, and classroom monitor. INDICATION: Type 1 diabetic on multiple medications with persistent odynophagia unexplained, not responsive to medical measures, on PPI. The esophagogastroduodenoscopy is performed for detection of any active erosive lesions, Hilario esophagus, and/or malignancy as well as esophageal moniliasis under consideration, H pylori status to be determined, duodenal biopsies to be obtained for celiac disease, endoscopic hemostasis therapy if needed. DESCRIPTION OF PROCEDURE: The scope was passed with ease. Adequate visualization of the esophagus was made from proximal to distal areas. No upper esophageal lesions identified. No distal esophageal stricture. No uphill or downhill esophageal varices. No esophageal tumor mass identified. Extensive whitish exudate was noted in the distal and mid esophagus, NBI views were obtained, multiple pinch biopsies were obtained and sent for histopathology, brush biopsy was taken for fungal smear as well as culture. No proximal gastric varices noted. Gastric fundus examination by retroflexion showed no polypoid lesions. There was some gastric food retention especially in the proximal area limiting visualization of few regions. No gastric ulcer, malignant mass, or vascular ectasia identified. Multiple pinch biopsies were obtained from the gastric antrum and proximal body, and sent for PyloriTek test for H pylori and histopathology. Duodenal bulb showed no ulcer. Visualized 2nd part of the duodenum was unremarkable. Multiple pinch biopsies, 4 in number, were taken from different areas of the 2nd part of the duodenum, and tissues were also obtained from the duodenal bulb at 9 and 12 o'clock positions and sent for any histopathologic evidence of celiac disease. No bleeding was noted from any of the visualized areas at the completion of examination. Photographs were taken of the duodenal bulb, gastric antrum, fundus, and distal esophagus. IMPRESSION: 1. Esophageal moniliasis. 2. Gastroparesis diabeticorum. The patient tolerated the procedure well. [facility] /[id number]
== END 2020-07-27 10:35 | disposition home or self-care (01) ==
LOC: DL.ENDO 06:51
PROVIDERS: ATTEND Internal Medicine Gastroenterology
DX: K29.50 Unspecified chronic gastritis without bleeding (principal); E10.43 Type 1 diabetes mellitus with diabetic autonomic (poly)neuropathy; K31.84 Gastroparesis; B37.81 Candidal esophagitis; K31.89 Other diseases of stomach and duodenum; K22.10 Ulcer of esophagus without bleeding; E10.22 Type 1 diabetes mellitus with diabetic chronic kidney disease; I12.9 Hypertensive chronic kidney disease with stage 1 through stage 4 chronic kidney disease, or unspecified chronic kidney disease; N18.9 Chronic kidney disease, unspecified; E78.5 Hyperlipidemia, unspecified; E03.9 Hypothyroidism, unspecified; N52.9 Male erectile dysfunction, unspecified
CPT/HCPCS: 43239; 87077; 87102; 87205; 88305; 88312; 88342; J2250; J3010; J7030; J7042

== ENCOUNTER 2020-11-15 08:04 | Emergency (ER) | payer MEDICARE, OTHER ==
[2020-11-15] MEDS ORDERED: Sodium Chloride 0.9% 1,000 ML IV ONE (08:58)
[2020-11-15] MEDS ORDERED: Ondansetron 4 MG/2 ML SDV IVPUSH ONE ×2 (08:58→11:26)
[2020-11-15 09:13] LABS: ANION GAP 19.7 mEq/L (7-13); CHLORIDE,CL 104 mmol/L (98-107); SODIUM,NA 144 mmol/L (136-145)
[2020-11-15 09:25] VITALS: BP 134/93; PULSE 75
[2020-11-15 09:48] LABS: CORONAVIRUS COVID-19 NAA NEGATIVE (NEGATIVE)
--- NOTE | 2020-11-15 10:16 | EDM.PDOC ---
ED HPI GENERAL MEDICAL PROBLEM - General Chief Complaint: Gastrointestinal Problem Stated Complaint: TYPE 2 DIABETIC,NAUSEA,DEHYDRATED Time Seen by Provider: 11/15/20 09:50 Source of Information: Reports: Patient History Limitations: Reports: No Limitations - History of Present Illness INITIAL COMMENTS - FREE TEXT/NARRATIVE: This 45 yo male patient reports to the ED due to nausea/vomiting for the past 2 days. The patient reports he was feeling well up to 2 days ago. The patient reports a similar episode 2 weeks ago due to nausea. The patient reports he has been attempting to eat and drink small amounts, but has not been able to keep anything down in 2 days. The patient reports no abdominal surgical history. Onset: Gradual Onset Date: 11/13/20 Duration: Day(s):, Constant Location: Reports: Abdomen (Generalized abdominal pain when vomiting) Quality: Reports: Ache, Dull Severity: Moderate Improves with: Reports: None Worsens with: Reports: None Context: Reports: Other Associated Symptoms: Reports: No Other Symptoms Chest Pain Score (Numeric/FACES): 5 - Related Data Allergies Allergy/AdvReac Type Severity Reaction Status Date / Time No Known Allergies Allergy Verified 07/26/20 14:35 Home Meds: Home Meds Insulin Aspart [NovoLOG] See Protocol SQ TIDMEALS 08/02/15 [History] Insulin Glarg,Human.Rec.Analog [Lantus] 20 units SQ BEDTIME 08/02/15 [History] atorvaSTATin Calcium [Atorvastatin Calcium] 10 mg PO BEDTIME 08/02/15 [History] Labetalol HCl [Labetalol] 200 mg PO BID 05/09/17 [History] Levothyroxine 200 mcg PO ACBREAKFAST 07/17/20 [History] Losartan Potassium 100 mg PO DAILY 07/17/20 [History] hydroCHLOROthiazide [Hydrochlorothiazide] 25 mg PO DAILY 07/17/20 [History] Omeprazole 20 mg PO DAILY 07/26/20 [History] Timolol Maleate [Timoptic] 1 drop EYEBOTH BID 07/26/20 [History] Past Medical History HEENT History: Reports: Glaucoma, Impaired Vision, Other (See Below) 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" Cardiovascular History: Reports: High Cholesterol, Hypertension Respiratory History: Reports: None Gastrointestinal History: Reports: GERD Genitourinary History: Reports: Chronic Renal Insuffiency, Other (See Below) Other Genitourinary History: ED Musculoskeletal History: Reports: None Neurological History: Reports: None, Neuropathy, Peripheral Psychiatric History: Reports: Depression Endocrine/Metabolic History: Reports: Diabetes, Type I, Hypothyroidism, Obesity/BMI 30+ Hematologic History: Reports: None Immunologic History: Reports: None Oncologic (Cancer) History: Reports: None Dermatologic History: Reports: Cellulitis - Infectious Disease History Infectious Disease History: Reports: None - Past Surgical History Head Surgeries/Procedures: Reports: None HEENT Surgical History: Reports: Eye Surgery Cardiovascular Surgical History: Reports: None Respiratory Surgical History: Reports: None GI Surgical History: Reports: None Male Surgical History: Reports: None Endocrine Surgical History: Reports: None Neurological Surgical History: Reports: None Musculoskeletal Surgical History: Reports: None Oncologic Surgical History: Reports: None Dermatological Surgical History: Reports: None Social & Family History - Family History Family Medical History: No Pertinent Family History - Tobacco Use Tobacco Use Status *Q: Unknown Ever Used Tobacco - Caffeine Use Caffeine Use: Reports: Coffee - Recreational Drug Use Recreational Drug Use: No - Living Situation & Occupation Living situation: Reports: , with Family ED ROS GENERAL - Review of Systems Review Of Systems: Comprehensive ROS is negative, except as noted in HPI. ED EXAM, GI/ABD - Physical Exam Exam: See Below Exam Limited By: No Limitations General Appearance: Alert, WD/WN, Moderate Distress Eyes: Bilateral: Normal Appearance, EOMI Ears: Normal External Exam, Normal Canal, Hearing Grossly Normal, Normal TMs Nose: Normal Inspection, Normal Mucosa, No Blood Throat/Mouth: Normal Inspection, Normal Lips, Normal Teeth, Normal Gums, Normal Oropharynx, Normal Voice, No Airway Compromise Head: Atraumatic, Normocephalic Neck: Normal Inspection, Supple, Non-Tender, Full Range of Motion Respiratory/Chest: No Respiratory Distress, Lungs Clear, Normal Breath Sounds, No Accessory Muscle Use, Chest Non-Tender Cardiovascular: Normal Peripheral Pulses, Regular Rate, Rhythm, No Edema, No Gallop, No JVD, No Murmur, No Rub GI/Abdominal Exam: Normal Bowel Sounds, Soft, Non-Tender, No Organomegaly, No Distention, No Abnormal Bruit, No Mass, Pelvis Stable (Male) Exam: Deferred Rectal (Males) Exam: Deferred Extremities: Normal Inspection, Normal Range of Motion, Non-Tender, Normal Capillary Refill, No Pedal Edema Neurological: Alert, Oriented, CN II-XII Intact, Normal Cognition, Normal Gait, Normal Reflexes, No Motor/Sensory Deficits Psychiatric: Normal Affect, Normal Mood Skin Exam: Warm, Dry, Intact, Normal Color, No Rash Lymphatic: No Adenopathy Course - Vital Signs Last Recorded V/S: Last Vital Signs Temp 99.2 F 11/15/20 09:22 Pulse 75 11/15/20 09:22 Resp 15 11/15/20 09:22 BP 134/93 H 11/15/20 09:22 Pulse Ox 100 11/15/20 09:22 - Orders/Labs/Meds Orders: Active Orders 24 hr Category Date Time Status CULTURE BLOOD [BC] Stat Lab 11/15/20 08:49 Results Labs: Laboratory Tests 11/15/20 11/15/20 11/15/20 Range/Units 08:22 08:49 08:49 WBC 14.0 H (5.0-10.0) 10^3/uL RBC 4.30 L (4.6-6.2) 10^6/uL Hgb 12.8 L D (14.0-18.0) g/dL Hct 38.7 L (40.0-54.0) % MCV 90.0 (80-100) fL MCH 29.8 (27.0-34.0) pg MCHC 33.1 (33.0-35.0) g/dL Plt Count 280 D (150-450) 10^3/uL Neut % (Auto) 86.8 H (42.2-75.2) % Lymph % (Auto) 9.8 L (20.5-50.1) % [place] % (Auto) 3.3 (2-8) % Eos % (Auto) 0.0 L (1.0-3.0) % Baso % (Auto) 0.1 (0.0-1.0) % Sodium 144 (136-145) mmol/L Potassium 4.7 (3.5-5.1) mmol/L Chloride 104 (98-107) mmol/L Carbon Dioxide 25 (21-32) mmol/L Anion Gap 19.7 H (7-13) mEq/L BUN 59 H (7-18) mg/dL Creatinine 2.99 H D (0.70-1.30) mg/dL Est Cr Clr Drug Dosing TNP Estimated GFR (MDRD) 23 BUN/Creatinine Ratio 19.7 (No establ ref range) Glucose 320 H (70-99) mg/dL POC Glucose 290 H (70-99) mg/dL Lactic Acid (0.4-2.0) mmol/L Calcium 9.2 (8.5-10.1) mg/dL Total Bilirubin 1.2 H (0.2-1.0) mg/dL AST 13 L (15-37) U/L ALT 18 (16-63) U/L Alkaline Phosphatase 109 (46-116) U/L Total Protein 7.7 (6.4-8.2) g/dL Albumin 3.9 (3.4-5.0) g/dL Globulin 3.8 Albumin/Globulin Ratio 1.0 Amylase 68 (25-115) U/L Lipase 32 L (73-393) U/L Urine Color (YELLOW) Urine Appearance (CLEAR) Urine pH (5.0-9.0) Ur Specific [place] (1.005-1.030) Urine Protein (NEGATIVE) Urine Glucose (UA) (NEGATIVE) Urine Ketones (NEGATIVE) Urine Occult Blood (NEGATIVE) Urine Nitrite (NEGATIVE) Urine Bilirubin (NEGATIVE) Urine Urobilinogen (0.2-1.0) mg/dL Ur Leukocyte Esterase (NEGATIVE) U Hyaline Cast (Auto) Urine RBC /HPF Urine WBC (0-5/HPF) /HPF Ur Epithelial Cells (NOT SEEN) /HPF Urine Bacteria (0-FEW/HPF) /HPF Urine Mucus (NOT SEEN) /LPF Ketones Influenza Type A RNA (NEGATIVE) Influenza Type B RNA (NEGATIVE) SARS-CoV-2 RNA (NAHED) (NEGATIVE) 11/15/20 11/15/20 11/15/20 Range/Units 08:49 08:49 09:03 WBC (5.0-10.0) 10^3/uL RBC (4.6-6.2) 10^6/uL Hgb (14.0-18.0) g/dL Hct (40.0-54.0) % MCV (80-100) fL MCH (27.0-34.0) pg MCHC (33.0-35.0) g/dL Plt Count (150-450) 10^3/uL Neut % (Auto) (42.2-75.2) % Lymph % (Auto) (20.5-50.1) % [place] % (Auto) (2-8) % Eos % (Auto) (1.0-3.0) % Baso % (Auto) (0.0-1.0) % Sodium (136-145) mmol/L Potassium (3.5-5.1) mmol/L Chloride (98-107) mmol/L Carbon Dioxide (21-32) mmol/L Anion Gap (7-13) mEq/L BUN (7-18) mg/dL Creatinine (0.70-1.30) mg/dL Est Cr Clr Drug Dosing Estimated GFR (MDRD) BUN/Creatinine Ratio (No establ ref range) Glucose (70-99) mg/dL POC Glucose (70-99) mg/dL Lactic Acid 1.4 (0.4-2.0) mmol/L Calcium (8.5-10.1) mg/dL Total Bilirubin (0.2-1.0) mg/dL AST (15-37) U/L ALT (16-63) U/L Alkaline Phosphatase (46-116) U/L Total Protein (6.4-8.2) g/dL Albumin (3.4-5.0) g/dL Globulin Albumin/Globulin Ratio Amylase (25-115) U/L Lipase (73-393) U/L Urine Color (YELLOW) Urine Appearance (CLEAR) Urine pH (5.0-9.0) Ur Specific [place] (1.005-1.030) Urine Protein (NEGATIVE) Urine Glucose (UA) (NEGATIVE) Urine Ketones (NEGATIVE) Urine Occult Blood (NEGATIVE) Urine Nitrite (NEGATIVE) Urine Bilirubin (NEGATIVE) Urine Urobilinogen (0.2-1.0) mg/dL Ur Leukocyte Esterase (NEGATIVE) U Hyaline Cast (Auto) Urine RBC /HPF Urine WBC (0-5/HPF) /HPF Ur Epithelial Cells (NOT SEEN) /HPF Urine Bacteria (0-FEW/HPF) /HPF Urine Mucus (NOT SEEN) /LPF Ketones Small-20 mg/dl Influenza Type A RNA Negative (NEGATIVE) Influenza Type B RNA Negative (NEGATIVE) SARS-CoV-2 RNA (NAHED) Negative (NEGATIVE) 11/15/20 Range/Units 10:17 WBC (5.0-10.0) 10^3/uL RBC (4.6-6.2) 10^6/uL Hgb (14.0-18.0) g/dL Hct (40.0-54.0) % MCV (80-100) fL MCH (27.0-34.0) pg MCHC (33.0-35.0) g/dL Plt Count (150-450) 10^3/uL Neut % (Auto) (42.2-75.2) % Lymph % (Auto) (20.5-50.1) % [place] % (Auto) (2-8) % Eos % (Auto) (1.0-3.0) % Baso % (Auto) (0.0-1.0) % Sodium (136-145) mmol/L Potassium (3.5-5.1) mmol/L Chloride (98-107) mmol/L Carbon Dioxide (21-32) mmol/L Anion Gap (7-13) mEq/L BUN (7-18) mg/dL Creatinine (0.70-1.30) mg/dL Est Cr Clr Drug Dosing Estimated GFR (MDRD) BUN/Creatinine Ratio (No establ ref range) Glucose (70-99) mg/dL POC Glucose (70-99) mg/dL Lactic Acid (0.4-2.0) mmol/L Calcium (8.5-10.1) mg/dL Total Bilirubin (0.2-1.0) mg/dL AST (15-37) U/L ALT (16-63) U/L Alkaline Phosphatase (46-116) U/L Total Protein (6.4-8.2) g/dL Albumin (3.4-5.0) g/dL Globulin Albumin/Globulin Ratio Amylase (25-115) U/L Lipase (73-393) U/L Urine Color Dark yellow (YELLOW) Urine Appearance Clear (CLEAR) Urine pH 5.5 (5.0-9.0) Ur Specific [place] >= 1.030 (1.005-1.030) Urine Protein 30 H (NEGATIVE) Urine Glucose (UA) 500 H (NEGATIVE) Urine Ketones 15 H (NEGATIVE) Urine Occult Blood Trace-intact H (NEGATIVE) Urine Nitrite Negative (NEGATIVE) Urine Bilirubin Moderate H (NEGATIVE) Urine Urobilinogen 0.2 (0.2-1.0) mg/dL Ur Leukocyte Esterase Negative (NEGATIVE) U Hyaline Cast (Auto) Many Urine RBC 0-5 /HPF Urine WBC 0-5 (0-5/HPF) /HPF Ur Epithelial Cells Few (NOT SEEN) /HPF Urine Bacteria Rare (0-FEW/HPF) /HPF Urine Mucus Moderate H (NOT SEEN) /LPF Ketones Influenza Type A RNA (NEGATIVE) Influenza Type B RNA (NEGATIVE) SARS-CoV-2 RNA (NAHED) (NEGATIVE) Meds: Medications Discontinued Medications Generic Name Dose Route Start Last Admin Trade Name Freq PRN Reason Stop Dose Admin Sodium Chloride 1,000 mls @ 999 mls/hr 11/15/20 08:58 11/15/20 09:14 Normal Saline IV 11/15/20 09:58 999 mls/hr .BOLUS ONE Administration Ondansetron HCl 4 mg 11/15/20 08:58 11/15/20 09:14 Ondansetron 4 Mg/2 Ml Sdv IVPUSH 11/15/20 08:59 4 mg ONETIME ONE Administration Departure - Departure Time of Disposition: 11:22 Disposition: DC/Tfer to [facility] Condition: Fair Clinical Impression: Enlarged gallbladder Elevated WBC count Qualifiers: Leukocytosis type: bandemia Qualified Code(s): D72.825 - Bandemia Acute renal failure Qualifiers: Acute renal failure type: unspecified Qualified Code(s): N17.9 - Acute kidney failure, unspecified - Discharge Information *PRESCRIPTION DRUG MONITORING PROGRAM REVIEWED*: Not Applicable *COPY OF PRESCRIPTION DRUG MONITORING REPORT IN PATIENT FRANCES: Not Applicable Forms: Interfacility Transfer EMTALA Care Plan Goals: Discussed the patient's history, examination, lab and CT results with Dr. Cheek and Dr. Joshi through [facility] in [place]. Dr. Joshi accepted the patient for continued evaluation and further management through the ED. The patient requested he be allowed to go by private vehicle to [place]. The patient was advised to have nothing to eat or drink until he is seen by Dr. Cheek. Sepsis Event Note (ED) - Evaluation Sepsis Screening Result: No Definite Risk - Focused Exam Vital Signs: Vital Signs Temp Pulse Resp BP Pulse Ox 11/15/20 09:22 99.2 F 75 15 134/93 H 100 - My Orders Last 24 Hours: My Active Orders 11/15/20 08:49 CULTURE BLOOD [BC] Stat - Assessment/Plan Last 24 Hours: My Active Orders 11/15/20 08:49 CULTURE BLOOD [BC] Stat
--- NOTE | 2020-11-15 10:28 | CT ---
EXAMINATION: Abdomen Pelvis wo Cont SEX: Male AGE: 45 years CLINICAL HISTORY: 45-year-old hypertensive 177 pound diabetic male with nausea and vomiting x2 days. This afebrile patient is COVID "negative" and has no pain but elevated serum WBC (14,000). Abnormal serum creatinine 2.99. Scan technique: Volume acquisition of data emergency unenhanced CT scan of the abdomen and pelvis obtained with patient lying supine on the Siemens multi slice scanner [place], [place]. All data archived in the PACS system for storage, reformatting axial/sagittal/coronal planes and study. Interpretation: Abnormal. 1. *Gallbladder markedly distended (RUQ) with dependent intraluminal gallstones and/or dense "sludge". 2. No intrahepatic mass and no dilatation of the intrahepatic biliary ducts (unenhanced scan) but on coronal slice #37 there appears to be an isolated tiny calcification lodged in the distal common bile duct. Bilirubin? 3. No obvious pancreatic mass lesion and the stomach, spleen and adrenal glands are unremarkable. 4. Numerous tiny calyceal calcifications both kidneys (primarily midpole right and lower pole left). No obstructive uropathy. 5. Normal reniform size, axis and configuration. Symmetrically distended normal appearing urinary bladder. Prostate and seminal vesicles negative. Atheromatous calcifications scattered normal caliber aortoiliac/inferior mesenteric vessels. 6. No abdominal or pelvic mass lesion. Normal appendix RLQ. No pelvic, mesenteric or retroperitoneal lymphadenopathy. No inflammatory "dirty" peritoneal fat, ascites or free intraperitoneal air. 7. Lung bases clear. Normal cardiac silhouette (coronary artery calcifications). No pericardial or pleural effusions.
[2020-11-15] MEDS ORDERED: Ondansetron 4 MG Tab.DIS PO ONE (11:42)
== END 2020-11-15 11:53 ==
LOC: DL.ED 08:04
DX: D72.825 Bandemia (principal); K82.8 Other specified diseases of gallbladder; N17.9 Acute kidney failure, unspecified; E78.00 Pure hypercholesterolemia, unspecified; I12.9 Hypertensive chronic kidney disease with stage 1 through stage 4 chronic kidney disease, or unspecified chronic kidney disease; E10.22 Type 1 diabetes mellitus with diabetic chronic kidney disease; N18.9 Chronic kidney disease, unspecified; K21.9 Gastro-esophageal reflux disease without esophagitis; E10.42 Type 1 diabetes mellitus with diabetic polyneuropathy; E03.9 Hypothyroidism, unspecified; E66.9 Obesity, unspecified; Z68.35 Body mass index [BMI] 35.0-35.9, adult; Z79.899 Other long term (current) drug therapy; Z20.822 Contact with and (suspected) exposure to COVID-19
CPT/HCPCS: 0240U; 36415; 74176; 80053; 81001; 82009; 82150; 82947; 83605; 83690; 85025; 87040; 96374; 99285; A9270; J2405; J7030; 99284

== ENCOUNTER 2021-01-08 11:15 | Emergency (ER) | payer MEDICARE, OTHER ==
[2021-01-08 11:27] VITALS: BP 151/93; PULSE 80
[2021-01-08] MEDS ORDERED: Pantoprazole 40 MG Vial IVPUSH ONE (12:13)
[2021-01-08] MEDS ORDERED: Ondansetron 4 MG/2 ML SDV IV ONE (12:13)
[2021-01-08] MEDS ORDERED: Sodium Chloride 0.9% 1,000 ML IV ONE ×2 (12:13→12:47)
[2021-01-08] MEDS ORDERED: Sodium Chloride 0.9% 10 ML Syringe FLUSH PRN (12:14)
[2021-01-08 12:40] LABS: ANION GAP 29.6 mEq/L (7-13); CHLORIDE,CL 91 mmol/L (98-107); SODIUM,NA 131 mmol/L (136-145)
[2021-01-08] MEDS ORDERED: Pantoprazole 40 MG in Sodium Chloride 0.9% 100 ML IV SCH (12:45)
[2021-01-08] MEDS ORDERED: Insulin Regular, Human 100 Units/ML 3 ML Vial IV ONE (13:01)
[2021-01-08] MEDS ORDERED: Metoclopramide 10 MG/2 ML SDV IVPUSH ONE (13:15)
[2021-01-08] MEDS ORDERED: diphenhydrAMINE 50 MG/ML SDV IVPUSH ONE (13:15)
[2021-01-08 13:53] LABS: O2 DELIVERY DEVICE ROOM AIR; O2 SATURATION VENOUS 98.4 % (60-80); PCO2 VENOUS 24 mmHg (41-51); PH,VENOUS 7.32 (7.31-7.41); PO2 VENOUS 125 mmHg (35-42)
[2021-01-08 13:54] LABS: BASE EXCESS VENOUS -12.7 mmol/l ((-2)-(+3)); BICARBONATE,VENOUS 12 mmol/l (19-25)
--- NOTE | 2021-01-08 15:53 | EDM.PDOC ---
Scribed by Erin Mendez 01/08/21 1252 for Willis Berg MD ED HPI GENERAL MEDICAL PROBLEM - General Chief Complaint: Gastrointestinal Problem Stated Complaint: [id number] NAUSEA THROWING UP Time Seen by Provider: 01/08/21 11:42 Source of Information: Reports: Patient, RN, RN Notes Reviewed History Limitations: Reports: No Limitations - History of Present Illness INITIAL COMMENTS - FREE TEXT/NARRATIVE: Patient presents to ED by POV with complaint of nausea and abdominal pain. States started last night with dark brown emesis. Patient last ate at his [employer] meal on 01/07/21. He now cannot keep down any food, liquids, or his medications. Onset Date: 01/07/21 Duration: Getting Worse Location: Reports: Abdomen Quality: Reports: Ache Severity: Severe Improves with: Reports: None Worsens with: Reports: None Associated Symptoms: Reports: No Other Symptoms - Related Data Allergies Allergy/AdvReac Type Severity Reaction Status Date / Time No Known Allergies Allergy Verified 07/26/20 14:35 Home Meds: Home Meds Insulin Aspart [NovoLOG] See Protocol SQ TIDMEALS 08/02/15 [History] Insulin Glarg,Human.Rec.Analog [Lantus] 20 units SQ BEDTIME 08/02/15 [History] atorvaSTATin Calcium [Atorvastatin Calcium] 10 mg PO BEDTIME 08/02/15 [History] Labetalol HCl [Labetalol] 200 mg PO BID 05/09/17 [History] Levothyroxine 200 mcg PO ACBREAKFAST 07/17/20 [History] Losartan Potassium 100 mg PO DAILY 07/17/20 [History] hydroCHLOROthiazide [Hydrochlorothiazide] 25 mg PO DAILY 07/17/20 [History] Omeprazole 20 mg PO DAILY 07/26/20 [History] Timolol Maleate [Timoptic] 1 drop EYEBOTH BID 07/26/20 [History] Past Medical History HEENT History: Reports: Glaucoma, Impaired Vision, Other (See Below) 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" Cardiovascular History: Reports: High Cholesterol, Hypertension Respiratory History: Reports: None Gastrointestinal History: Reports: GERD Genitourinary History: Reports: Chronic Renal Insuffiency, Other (See Below) Other Genitourinary History: ED Musculoskeletal History: Reports: None Neurological History: Reports: Neuropathy, Peripheral Psychiatric History: Reports: Depression Endocrine/Metabolic History: Reports: Diabetes, Type I, Hypothyroidism, Obesity/BMI 30+ Hematologic History: Reports: None Immunologic History: Reports: None Oncologic (Cancer) History: Reports: None Dermatologic History: Reports: Cellulitis - Infectious Disease History Infectious Disease History: Reports: None - Past Surgical History Head Surgeries/Procedures: Reports: None HEENT Surgical History: Reports: Eye Surgery Cardiovascular Surgical History: Reports: None Respiratory Surgical History: Reports: None GI Surgical History: Reports: None Male Surgical History: Reports: None Endocrine Surgical History: Reports: None Neurological Surgical History: Reports: None Musculoskeletal Surgical History: Reports: None Oncologic Surgical History: Reports: None Dermatological Surgical History: Reports: None Social & Family History - Family History Family Medical History: No Pertinent Family History - Caffeine Use Caffeine Use: Reports: None - Recreational Drug Use Recreational Drug Use: No - Living Situation & Occupation Living situation: Reports: , with Family ED ROS GENERAL - Review of Systems Review Of Systems: Comprehensive ROS is negative, except as noted in HPI. ED EXAM, GI/ABD - Physical Exam Exam: See Below Exam Limited By: No Limitations General Appearance: Alert, Anxious, Mild Distress, Active Emesis Eyes: Bilateral: Normal Appearance, EOMI Ears: Normal External Exam Nose: Normal Inspection, Normal Mucosa, No Blood Throat/Mouth: Normal Lips, Normal Voice, No Airway Compromise, Other (Dry oral mucosa) Head: Atraumatic, Normocephalic Neck: Normal Inspection, Non-Tender, Full Range of Motion Respiratory/Chest: No Respiratory Distress, Lungs Clear, Normal Breath Sounds, No Accessory Muscle Use, Chest Non-Tender Cardiovascular: Normal Peripheral Pulses, Regular Rate, Rhythm, No Edema GI/Abdominal Exam: Normal Bowel Sounds, Soft, Tender (Epigastric tenderness). No: Guarding, Rigid, Rebound Rectal (Males) Exam: Heme + Stool Back Exam: Normal Inspection Extremities: Normal Inspection Neurological: Alert, Oriented, CN II-XII Intact, Normal Cognition, Normal Gait, No Motor/Sensory Deficits Psychiatric: Depressed Mood, Flat Affect Skin Exam: Warm, Dry, Intact, Normal Color, No Rash Course - Vital Signs Last Recorded V/S: Last Vital Signs Temp 97.1 F 01/08/21 11:25 Pulse 80 01/08/21 11:25 Resp 16 01/08/21 11:25 BP 151/93 H 01/08/21 11:25 Pulse Ox 100 01/08/21 11:25 - Orders/Labs/Meds Orders: Active Orders 24 hr Category Date Time Status Blood Glucose Check, Bedside [RC] ONETIME Care 01/08/21 13:01 Active Peripheral IV Care [RC] . DIRECTED Care 01/08/21 12:14 Active ABG [BLOOD GAS ARTERIAL] [BG] Stat Lab 01/08/21 12:47 Ordered Nuno [CORONAVIRUS COVID-19 NAHED] [MOLEC] Stat Lab 01/08/21 15:14 Ordered Insulin Regular in 0.9 % NACL [Myxredlin in NS 100 UNIT Med 01/08/21 13:15 Active /100 ML] 100 unit in 100 ml IV TITRATE Pantoprazole [ProTONIX IV] 40 mg Med 01/08/21 12:45 Active Sodium Chloride 0.9% [Normal Saline] 100 ml IV .CONTINUOS Sodium Chloride 0.9% [Saline Flush] Med 01/08/21 12:14 Active 10 ml FLUSH ASDIRECTED PRN Peripheral IV Insertion Adult [OM.PC] Stat Oth 01/08/21 12:14 Ordered Medication Orders Pantoprazole Sodium 40 mg/ (Sodium Chloride) 100 mls @ 20 mls/hr IV .CONTINUOS MARCO Last Admin: 01/08/21 13:25 Dose: 20 mls/hr Documented by: DARIN Insulin Regular in 0.9 % NACL (Myxredlin In Ns 100 Unit/100 Ml) 100 unit in 100 mls @ 7.92 mls/hr IV TITRATE MARCO; Protocol Last Admin: 01/08/21 14:24 Dose: 0.1 units/kg/hr, 7.92 mls/hr Documented by: DARIN Cosigned by: JOYA Sodium Chloride (Sodium Chloride 0.9% 10 Ml Syringe) 10 ml FLUSH ASDIRECTED PRN PRN Reason: Keep Vein Open Last Admin: 01/08/21 14:45 Dose: 10 ml Documented by: DARIN Labs: Laboratory Tests 01/08/21 01/08/21 01/08/21 Range/Units 11:52 11:52 11:52 WBC 16.2 H (5.0-10.0) 10^3/uL RBC 4.26 L (4.6-6.2) 10^6/uL Hgb 12.5 L (14.0-18.0) g/dL Hct 36.7 L (40.0-54.0) % MCV 86.2 D (80-100) fL MCH 29.3 (27.0-34.0) pg MCHC 34.1 (33.0-35.0) g/dL Plt Count 290 (150-450) 10^3/uL Neut % (Auto) 92.3 H (42.2-75.2) % Lymph % (Auto) 5.9 L (20.5-50.1) % [place] % (Auto) 1.5 L (2-8) % Eos % (Auto) 0.1 L (1.0-3.0) % Baso % (Auto) 0.2 (0.0-1.0) % PT 10.3 (9.0-12.0) SEC INR 1.0 (0.9-1.2) APTT 19.0 L (22.0-34.0) SEC VBG pH (7.31-7.41) VBG pCO2 (41-51) mmHg VBG pO2 (35-42) mmHg VBG HCO3 (19-25) mmol/l VBG O2 Saturation (60-80) % VBG Base Excess ((-2)-(+3)) mmol/l O2 Delivery Device Sodium 131 L D (136-145) mmol/L Potassium 5.6 H (3.5-5.1) mmol/L Chloride 91 L D (98-107) mmol/L Carbon Dioxide 16 L (21-32) mmol/L Anion Gap 29.6 H (7-13) mEq/L BUN 41 H (7-18) mg/dL Creatinine 2.11 H (0.70-1.30) mg/dL Est Cr Clr Drug Dosing 47.50 mL/min Estimated GFR (MDRD) 34 BUN/Creatinine Ratio 19.4 (No establ ref range) Glucose 770 H* (70-99) mg/dL POC Glucose (70-99) mg/dL Calcium 10.0 (8.5-10.1) mg/dL Phosphorus 6.2 H (2.6-4.7) mg/dL Magnesium 2.2 (1.8-2.4) mg/dL Total Bilirubin 1.7 H (0.2-1.0) mg/dL AST 20 (15-37) U/L ALT 24 (16-63) U/L Alkaline Phosphatase 160 H (46-116) U/L Troponin I High Sens 5 (<=76) pg/mL Total Protein 7.4 (6.4-8.2) g/dL Albumin 4.0 (3.4-5.0) g/dL Globulin 3.4 Albumin/Globulin Ratio 1.2 Amylase 59 (25-115) U/L Lipase 142 (73-393) U/L Ketones Moderate-40 mg/dl 01/08/21 01/08/21 01/08/21 Range/Units 13:16 13:43 14:59 WBC (5.0-10.0) 10^3/uL RBC (4.6-6.2) 10^6/uL Hgb (14.0-18.0) g/dL Hct (40.0-54.0) % MCV (80-100) fL MCH (27.0-34.0) pg MCHC (33.0-35.0) g/dL Plt Count (150-450) 10^3/uL Neut % (Auto) (42.2-75.2) % Lymph % (Auto) (20.5-50.1) % [place] % (Auto) (2-8) % Eos % (Auto) (1.0-3.0) % Baso % (Auto) (0.0-1.0) % PT (9.0-12.0) SEC INR (0.9-1.2) APTT (22.0-34.0) SEC VBG pH 7.32 (7.31-7.41) VBG pCO2 24 L (41-51) mmHg VBG pO2 125 H (35-42) mmHg VBG HCO3 12 L (19-25) mmol/l VBG O2 Saturation 98.4 H (60-80) % VBG Base Excess -12.7 L ((-2)-(+3)) mmol/l O2 Delivery Device Room air Sodium (136-145) mmol/L Potassium (3.5-5.1) mmol/L Chloride (98-107) mmol/L Carbon Dioxide (21-32) mmol/L Anion Gap (7-13) mEq/L BUN (7-18) mg/dL Creatinine (0.70-1.30) mg/dL Est Cr Clr Drug Dosing mL/min Estimated GFR (MDRD) BUN/Creatinine Ratio (No establ ref range) Glucose (70-99) mg/dL POC Glucose > 600 H* 587 H* (70-99) mg/dL Calcium (8.5-10.1) mg/dL Phosphorus (2.6-4.7) mg/dL Magnesium (1.8-2.4) mg/dL Total Bilirubin (0.2-1.0) mg/dL AST (15-37) U/L ALT (16-63) U/L Alkaline Phosphatase (46-116) U/L Troponin I High Sens (<=76) pg/mL Total Protein (6.4-8.2) g/dL Albumin (3.4-5.0) g/dL Globulin Albumin/Globulin Ratio Amylase (25-115) U/L Lipase (73-393) U/L Ketones 01/08/21 Range/Units 15:34 WBC (5.0-10.0) 10^3/uL RBC (4.6-6.2) 10^6/uL Hgb (14.0-18.0) g/dL Hct (40.0-54.0) % MCV (80-100) fL MCH (27.0-34.0) pg MCHC (33.0-35.0) g/dL Plt Count (150-450) 10^3/uL Neut % (Auto) (42.2-75.2) % Lymph % (Auto) (20.5-50.1) % [place] % (Auto) (2-8) % Eos % (Auto) (1.0-3.0) % Baso % (Auto) (0.0-1.0) % PT (9.0-12.0) SEC INR (0.9-1.2) APTT (22.0-34.0) SEC VBG pH (7.31-7.41) VBG pCO2 (41-51) mmHg VBG pO2 (35-42) mmHg VBG HCO3 (19-25) mmol/l VBG O2 Saturation (60-80) % VBG Base Excess ((-2)-(+3)) mmol/l O2 Delivery Device Sodium (136-145) mmol/L Potassium (3.5-5.1) mmol/L Chloride (98-107) mmol/L Carbon Dioxide (21-32) mmol/L Anion Gap (7-13) mEq/L BUN (7-18) mg/dL Creatinine (0.70-1.30) mg/dL Est Cr Clr Drug Dosing mL/min Estimated GFR (MDRD) BUN/Creatinine Ratio (No establ ref range) Glucose (70-99) mg/dL POC Glucose 589 H* (70-99) mg/dL Calcium (8.5-10.1) mg/dL Phosphorus (2.6-4.7) mg/dL Magnesium (1.8-2.4) mg/dL Total Bilirubin (0.2-1.0) mg/dL AST (15-37) U/L ALT (16-63) U/L Alkaline Phosphatase (46-116) U/L Troponin I High Sens (<=76) pg/mL Total Protein (6.4-8.2) g/dL Albumin (3.4-5.0) g/dL Globulin Albumin/Globulin Ratio Amylase (25-115) U/L Lipase (73-393) U/L Ketones Gastric occult blood: Positive. Meds: Medications Generic Name Dose Route Start Last Admin Trade Name Freq PRN Reason Stop Dose Admin Pantoprazole Sodium 40 mg/ 100 mls @ 20 mls/hr 01/08/21 12:45 01/08/21 13:25 Sodium Chloride IV 20 mls/hr .CONTINUOS MARCO Administration Insulin Regular in 0.9 % NACL 100 unit in 100 mls @ 7.92 mls/hr 01/08/21 13:15 01/08/21 14:24 Myxredlin In Ns 100 Unit/100 Ml IV 0.1 units/kg/hr TITRATE MARCO 7.92 mls/hr Administration Protocol 0.1 UNITS/KG/HR Sodium Chloride 10 ml 01/08/21 12:14 01/08/21 14:45 Sodium Chloride 0.9% 10 Ml Syringe FLUSH 10 ml ASDIRECTED PRN Administration Keep Vein Open Discontinued Medications Generic Name Dose Route Start Last Admin Trade Name Freq PRN Reason Stop Dose Admin Diphenhydramine HCl 25 mg 01/08/21 13:15 01/08/21 13:55 Diphenhydramine 50 Mg/Ml Sdv IVPUSH 01/08/21 13:16 25 mg ONETIME ONE Administration Sodium Chloride 1,000 mls @ 999 mls/hr 01/08/21 12:13 01/08/21 12:28 Normal Saline IV 01/08/21 13:13 999 mls/hr .BOLUS ONE Administration Sodium Chloride 1,000 mls @ 999 mls/hr 01/08/21 12:47 01/08/21 13:15 Normal Saline IV 01/08/21 13:47 999 mls/hr .BOLUS ONE Administration Insulin Human Regular 10 unit 01/08/21 13:01 01/08/21 13:50 Insulin Regular, Human 100 Units/Ml 3 Ml Vial IV 01/08/21 13:02 10 unit ONETIME ONE Administration Metoclopramide HCl 10 mg 01/08/21 13:15 01/08/21 13:59 Metoclopramide 10 Mg/2 Ml Sdv IVPUSH 01/08/21 13:16 10 mg ONETIME ONE Administration Ondansetron HCl 4 mg 01/08/21 12:13 01/08/21 12:31 Ondansetron 4 Mg/2 Ml Sdv IV 01/08/21 12:14 4 mg ONETIME ONE Administration Pantoprazole Sodium 80 mg 01/08/21 12:13 01/08/21 12:35 Pantoprazole 40 Mg Vial IVPUSH 01/08/21 12:14 80 mg .BOLUS ONE Administration - Re-Assessments/Exams Free Text/Narrative Re-Assessment/Exam: 01/08/21 13:58 No GI or surgical service and no ICU available in [place]. No beds available at [facility] or [facility]. Departure - Departure Time of Disposition: 15:50 Disposition: DC/Tfer to Acute Hospital 02 Condition: Serious Clinical Impression: Upper GI bleed Diabetic ketoacidosis associated with type 1 diabetes mellitus Qualifiers: Diabetes mellitus complication detail: without coma Qualified Code(s): E10.10 - Type 1 diabetes mellitus with ketoacidosis without coma - Discharge Information *PRESCRIPTION DRUG MONITORING PROGRAM REVIEWED*: Not Applicable *COPY OF PRESCRIPTION DRUG MONITORING REPORT IN PATIENT FRANCES: Not Applicable Forms: ED Department Discharge[facility] S[facility] Event Note (ED) - Focused Exam Vital Signs: Vital Signs Temp Pulse Resp BP Pulse Ox 01/08/21 11:25 97.1 F 80 16 151/93 H 100 - My Orders Last 24 Hours: My Active Orders 01/08/21 12:14 Peripheral IV Care [RC] . DIRECTED Sodium Chloride 0.9% [Saline Flush] 10 ml FLUSH ASDIRECTED PRN Peripheral IV Insertion Adult [OM.PC] Stat 01/08/21 12:45 Pantoprazole [ProTONIX IV] 40 mg Sodium Chloride 0.9% [Normal Saline] 100 ml IV .CONTINUOS 01/08/21 12:47 ABG [BLOOD GAS ARTERIAL] [BG] Stat 01/08/21 13:01 Blood Glucose Check, Bedside [RC] ONETIME 01/08/21 13:15 Insulin Regular in 0.9 % NACL [Myxredlin in NS 100 UNIT/100 ML] 100 unit in 100 ml IV TITRATE 01/08/21 15:14 Nuno [CORONAVIRUS COVID-19 NAHED] [MOLEC] Stat - Assessment/Plan Last 24 Hours: My Active Orders 01/08/21 12:14 Peripheral IV Care [RC] . DIRECTED Sodium Chloride 0.9% [Saline Flush] 10 ml FLUSH ASDIRECTED PRN Peripheral IV Insertion Adult [OM.PC] Stat 01/08/21 12:45 Pantoprazole [ProTONIX IV] 40 mg Sodium Chloride 0.9% [Normal Saline] 100 ml IV .CONTINUOS 01/08/21 12:47 ABG [BLOOD GAS ARTERIAL] [BG] Stat 01/08/21 13:01 Blood Glucose Check, Bedside [RC] ONETIME 01/08/21 13:15 Insulin Regular in 0.9 % NACL [Myxredlin in NS 100 UNIT/100 ML] 100 unit in 100 ml IV TITRATE 01/08/21 15:14 Nuno [CORONAVIRUS COVID-19 NAHED] [MOLEC] Stat I have read and agree with the documentation that has been completed regarding this visit. By signing this record, I attest that the documentation was completed in my physical presence and is an accurate record of the encounter.
== END 2021-01-08 16:32 ==
LOC: DL.ED 11:15
DX: K92.2 Gastrointestinal hemorrhage, unspecified (principal); E10.10 Type 1 diabetes mellitus with ketoacidosis without coma; I12.9 Hypertensive chronic kidney disease with stage 1 through stage 4 chronic kidney disease, or unspecified chronic kidney disease; E10.22 Type 1 diabetes mellitus with diabetic chronic kidney disease; N18.9 Chronic kidney disease, unspecified; E78.00 Pure hypercholesterolemia, unspecified; K21.9 Gastro-esophageal reflux disease without esophagitis; E10.42 Type 1 diabetes mellitus with diabetic polyneuropathy; E03.9 Hypothyroidism, unspecified; E66.9 Obesity, unspecified; Z68.23 Body mass index [BMI] 23.0-23.9, adult; Z79.899 Other long term (current) drug therapy
CPT/HCPCS: 36415; 80053; 82009; 82150; 82271; 82272; 82803; 82947; 83690; 83735; 84100; 84484; 85025; 85610; 85730; 96361; 96365; 96366; 96375; 96376; 99285; C9113; J1200; J1815; J2405; J2765; J7030; U0002

== ENCOUNTER 2021-02-05 09:35 | Inpatient (IN) | payer MEDICARE, OTHER ==
[2021-02-05] MEDS ORDERED: Sodium Chloride 0.9% 10 ML Syringe FLUSH PRN ×2 (09:41→09:43)
[2021-02-05] MEDS ORDERED: Sodium Chloride 0.9% 1,000 ML IV ONE ×3 (09:46→11:32)
[2021-02-05] MEDS ORDERED: Pantoprazole 40 MG Vial IVPUSH ONE (09:46)
[2021-02-05] MEDS ORDERED: Ondansetron 4 MG/2 ML SDV IV ONE (09:46)
[2021-02-05] MEDS ORDERED: Octreotide 100 MCG/ML SDV IVPUSH ONE (09:53)
[2021-02-05] MEDS ORDERED: Ondansetron 4 MG/2 ML SDV ONE (09:58)
[2021-02-05] MEDS ORDERED: Pantoprazole 40 MG in Sodium Chloride 0.9% 100 ML IV SCH (10:00)
[2021-02-05] MEDS: Octreotide 100 MCG in Sodium Chloride 0.9% 99 ML IV SCH ×2 (10:05→20:28)
[2021-02-05] MEDS: Pantoprazole 40 MG in Sodium Chloride 0.9% 100 ML IV SCH ×3 (10:06→20:29)
[2021-02-05 10:23] LABS: PTT,PARTIAL THROMBOPLSTIN TIME 21.3 SEC (22.0-34.0)
[2021-02-05 10:28] LABS: ANION GAP 25.8 mEq/L (7-13); CHLORIDE,CL 98 mmol/L (98-107); SODIUM,NA 141 mmol/L (136-145)
[2021-02-05] MEDS ORDERED: 50% Dextrose in Water 50 ML Syringe IVPUSH PRN ×2 (10:31→14:35)
[2021-02-05] MEDS ORDERED: Glucagon,Human Recombinant 1 MG Vial IM PRN ×2 (10:31→14:35)
[2021-02-05] MEDS ORDERED: Insulin Regular, Human 100 Units/ML 3 ML Vial IV ONE (10:31)
[2021-02-05] MEDS ORDERED: Metoclopramide 10 MG/2 ML SDV IVPUSH ONE (10:32)
[2021-02-05] MEDS ORDERED: diphenhydrAMINE 50 MG/ML SDV IVPUSH ONE (10:33)
--- NOTE | 2021-02-05 10:50 | CR ---
PROCEDURE INFORMATION: Exam: XR Chest Exam date and time: 02/05/2021 10:10 AM Age: 45 years old Clinical indication: Other: Dka, vomiting, poss. Aspiration TECHNIQUE: Imaging protocol: XR of the chest. Views: 1 view. COMPARISON: CR Chest 1V Frontal 05/09/2017 10:32 AM FINDINGS: Lungs: The lungs are normally expanded and clear. Pleural spaces: Normal. Heart/Mediastinum: Normal heart and cardio-mediastinal silhouette. Vasculature: Normal pulmonary vessels and width of the vascular pedicle. Bones/joints: Intact and normally aligned. No suspicious lesion. IMPRESSION: No acute disease or suspicious finding.
--- NOTE | 2021-02-05 11:08 | EDM.PDOC ---
ED HPI GENERAL MEDICAL PROBLEM - General Chief Complaint: Gastrointestinal Problem Stated Complaint: [id number] DIABETIC KETOACIDOIS SUGARS HIGH VOMITING Time Seen by Provider: 02/05/21 09:50 Source of Information: Reports: Patient History Limitations: Reports: No Limitations - History of Present Illness INITIAL COMMENTS - FREE TEXT/NARRATIVE: 45 y/o M c/o vomiting blood and hyperglycemia since last night. Pt has hx of GI bleed a month ago and he was transferred out. He reports when he was transferred no GI consult was performed. About 3 am this morning the pt began coffee ground emesis. He reports decreased fluid intake. Type I diabetes and has trouble controlling his blood sugar. Denies fever, cough, chills, cp, drugs, etoh. Duration: Hour(s): - Related Data Allergies Allergy/AdvReac Type Severity Reaction Status Date / Time No Known Allergies Allergy Verified 02/05/21 10:33 Home Meds: Home Meds Insulin Aspart [NovoLOG] See Protocol SQ TIDMEALS 08/02/15 [History] Insulin Glarg,Human.Rec.Analog [Lantus] 20 units SQ BEDTIME 08/02/15 [History] atorvaSTATin Calcium [Atorvastatin Calcium] 10 mg PO BEDTIME 08/02/15 [History] Labetalol HCl [Labetalol] 200 mg PO BID 05/09/17 [History] Levothyroxine 200 mcg PO ACBREAKFAST 07/17/20 [History] Losartan Potassium 100 mg PO DAILY 07/17/20 [History] hydroCHLOROthiazide [Hydrochlorothiazide] 25 mg PO DAILY 07/17/20 [History] Omeprazole 20 mg PO DAILY 07/26/20 [History] Timolol Maleate [Timoptic] 1 drop EYEBOTH BID 07/26/20 [History] Past Medical History HEENT History: Reports: Glaucoma, Impaired Vision, Other (See Below) 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" Cardiovascular History: Reports: High Cholesterol, Hypertension Respiratory History: Reports: None Gastrointestinal History: Reports: GERD Genitourinary History: Reports: Chronic Renal Insuffiency, Other (See Below) Other Genitourinary History: ED Musculoskeletal History: Reports: None Neurological History: Reports: Neuropathy, Peripheral Psychiatric History: Reports: Depression Endocrine/Metabolic History: Reports: Diabetes, Type I, Hypothyroidism, Obesity/BMI 30+ Hematologic History: Reports: None Immunologic History: Reports: None Oncologic (Cancer) History: Reports: None Dermatologic History: Reports: Cellulitis - Infectious Disease History Infectious Disease History: Reports: None - Past Surgical History Head Surgeries/Procedures: Reports: None HEENT Surgical History: Reports: Eye Surgery Cardiovascular Surgical History: Reports: None Respiratory Surgical History: Reports: None GI Surgical History: Reports: None Male Surgical History: Reports: None Endocrine Surgical History: Reports: None Neurological Surgical History: Reports: None Musculoskeletal Surgical History: Reports: None Oncologic Surgical History: Reports: None Dermatological Surgical History: Reports: None Social & Family History - Family History Family Medical History: No Pertinent Family History - Tobacco Use Tobacco Use Status *Q: Light Tobacco User Years of Tobacco use: 1 Packs/Tins Daily: 0.5 - Caffeine Use Caffeine Use: Reports: Soda - Recreational Drug Use Recreational Drug Use: No - Living Situation & Occupation Living situation: Reports: , with Family ED ROS GENERAL - Review of Systems Review Of Systems: Comprehensive ROS is negative, except as noted in HPI. ED EXAM, GI/ABD - Physical Exam Exam: See Below Exam Limited By: No Limitations General Appearance: Alert, Mild Distress Eyes: Bilateral: Normal Appearance, EOMI Throat/Mouth: Normal Inspection, Normal Lips, Normal Teeth, Normal Gums, Normal Oropharynx, Normal Voice, No Airway Compromise Head: Atraumatic, Normocephalic Neck: Normal Inspection, Supple, Non-Tender, Full Range of Motion Respiratory/Chest: Lungs Clear, Normal Breath Sounds Cardiovascular: Normal Peripheral Pulses, Regular Rate, Rhythm GI/Abdominal Exam: Soft, Non-Tender (Male) Exam: Deferred Rectal (Males) Exam: Deferred Back Exam: Normal Inspection, Full Range of Motion Extremities: Normal Inspection, Normal Range of Motion, Non-Tender, Normal Capillary Refill, No Pedal Edema Neurological: Alert, Oriented, CN II-XII Intact, Normal Cognition, Normal Gait, Normal Reflexes, No Motor/Sensory Deficits Skin Exam: Warm, Dry, Intact #1 Interpretation EKG Date: 02/05/21 Time: 10:02 Rhythm: NSR [place]: Normal P-Wave: Present QRS: Normal ST-T: Normal QT: Normal Course - Orders/Labs/Meds Orders: Active Orders 24 hr Category Date Time Status Blood Glucose Check, Bedside [RC] ONETIME Care 02/05/21 09:41 Active Peripheral IV Care [RC] . DIRECTED Care 02/05/21 09:41 Active Peripheral IV Care [RC] . DIRECTED Care 02/05/21 09:44 Active ABG [BLOOD GAS ARTERIAL] [BG] Stat Lab 02/05/21 09:43 Ordered CULTURE BLOOD [BC] Stat Lab 02/05/21 09:50 Results CULTURE BLOOD [BC] Stat Lab 02/05/21 09:53 Received DRUG SCREEN URINE BIORAD [URCHEM] Stat Lab 02/05/21 09:42 Ordered LACTIC ACID [CHEM] Routine Lab 02/05/21 12:26 Ordered UA RFX SALLY AND CULT IF INDIC [URIN] Stat Lab 02/05/21 09:43 Ordered Dextrose 50% in Water Med 02/05/21 10:31 Active 50 ml IVPUSH Q15M PRN Glucagon,Human Recombinant [GlucaGen] Med 02/05/21 10:31 Active 1 mg IM Q15M PRN Insulin Regular in 0.9 % NACL [Myxredlin in NS 100 UNIT Med 02/05/21 10:30 Active /100 ML] 100 unit in 100 ml IV TITRATE Octreotide [SandoSTATIN] 100 mcg Med 02/05/21 10:00 Active Sodium Chloride 0.9% [Normal Saline] 99 ml IV Q10H Pantoprazole [ProTONIX IV] 40 mg Med 02/05/21 10:00 Active Sodium Chloride 0.9% [Normal Saline] 100 ml IV Q5H Sodium Chloride 0.9% [Saline Flush] Med 02/05/21 09:41 Active 10 ml FLUSH ASDIRECTED PRN Sodium Chloride 0.9% [Saline Flush] Med 02/05/21 09:43 Active 10 ml FLUSH ASDIRECTED PRN Sodium Chloride 0.9% with KCl [Normal Saline with 40 Med 02/05/21 12:00 Active mEq KCl] 1,000 ml IV ASDIRECTED Blood Culture x2 Reflex Set [OM.PC] Stat Oth 02/05/21 09:41 Ordered Peripheral IV Insertion Adult [OM.PC] Stat Oth 02/05/21 09:41 Ordered Peripheral IV Insertion Adult [OM.PC] Stat Oth 02/05/21 09:43 Ordered Medication Orders Dextrose/Water (50% Dextrose In Water 50 Ml Syringe) 50 ml IVPUSH Q15M PRN PRN Reason: Hypoglycemia Glucagon (Glucagon,Human Recombinant 1 Mg Vial) 1 mg IM Q15M PRN PRN Reason: Hypoglycemia Pantoprazole Sodium 40 mg/ (Sodium Chloride) 100 mls @ 20 mls/hr IV Q5H MARCO Last Admin: 02/05/21 10:06 Dose: 20 mls/hr Documented by: GIOVANY Octreotide Acetate 100 mcg/ (Sodium Chloride) 100 mls @ 50 mls/hr IV Q10H MARCO Last Admin: 02/05/21 10:05 Dose: 50 mls/hr Documented by: GIOVANY Insulin Regular in 0.9 % NACL (Myxredlin In Ns 100 Unit/100 Ml) 100 unit in 100 mls @ 7.629 mls/hr IV TITRATE MARCO; Protocol Last Admin: 02/05/21 11:19 Dose: 0.1 units/kg/hr, 7.629 mls/hr Documented by: GIOVANY Cosigned by: SHARATH Potassium Chloride/Sodium Chloride (Normal Saline With 40 Meq Kcl) 1,000 mls @ 200 mls/hr IV ASDIRECTED MARCO Sodium Chloride (Sodium Chloride 0.9% 10 Ml Syringe) 10 ml FLUSH ASDIRECTED PRN PRN Reason: Keep Vein Open Last Admin: 02/05/21 10:05 Dose: 10 ml Documented by: GIOVANY Sodium Chloride (Sodium Chloride 0.9% 10 Ml Syringe) 10 ml FLUSH ASDIRECTED PRN PRN Reason: Keep Vein Open Last Admin: 02/05/21 10:06 Dose: 10 ml Documented by: GIOVANY Labs: Laboratory Tests 02/05/21 02/05/21 02/05/21 Range/Units 09:50 09:50 09:50 WBC 20.2 H (5.0-10.0) 10^3/uL RBC 4.34 L (4.6-6.2) 10^6/uL Hgb 12.7 L (14.0-18.0) g/dL Hct 38.3 L (40.0-54.0) % MCV 88.2 (80-100) fL MCH 29.3 (27.0-34.0) pg MCHC 33.2 (33.0-35.0) g/dL Plt Count 378 D (150-450) 10^3/uL Neut % (Auto) 93.3 H (42.2-75.2) % Lymph % (Auto) 4.2 L (20.5-50.1) % [place] % (Auto) 2.5 (2-8) % Eos % (Auto) 0.0 L (1.0-3.0) % Baso % (Auto) 0.0 (0.0-1.0) % PT 10.4 (9.0-12.0) SEC INR 1.0 (0.9-1.2) APTT 21.3 L (22.0-34.0) SEC Sodium 141 D (136-145) mmol/L Potassium 3.8 D (3.5-5.1) mmol/L Chloride 98 (98-107) mmol/L Carbon Dioxide 21 (21-32) mmol/L Anion Gap 25.8 H (7-13) mEq/L BUN 48 H (7-18) mg/dL Creatinine 2.81 H (0.70-1.30) mg/dL Est Cr Clr Drug Dosing TNP Estimated GFR (MDRD) 24 BUN/Creatinine Ratio 17.1 (No establ ref range) Glucose 460 H* (70-99) mg/dL POC Glucose (70-99) mg/dL Lactic Acid (0.4-2.0) mmol/L Calcium 9.7 (8.5-10.1) mg/dL Phosphorus 3.7 (2.6-4.7) mg/dL Magnesium 2.5 H (1.8-2.4) mg/dL Total Bilirubin 1.2 H (0.2-1.0) mg/dL AST 18 (15-37) U/L ALT 21 (16-63) U/L Alkaline Phosphatase 135 H (46-116) U/L Troponin I High Sens 7 (<=76) pg/mL Total Protein 8.2 (6.4-8.2) g/dL Albumin 3.9 (3.4-5.0) g/dL Globulin 4.3 Albumin/Globulin Ratio 0.9 Amylase 61 (25-115) U/L Lipase 42 L (73-393) U/L Ethyl Alcohol < 3 (0) mg/dL Ketones Small-20 mg/dl SARS-CoV-2 RNA (NAHED) (NEGATIVE) 02/05/21 02/05/21 02/05/21 Range/Units 09:53 11:11 11:39 WBC (5.0-10.0) 10^3/uL RBC (4.6-6.2) 10^6/uL Hgb (14.0-18.0) g/dL Hct (40.0-54.0) % MCV (80-100) fL MCH (27.0-34.0) pg MCHC (33.0-35.0) g/dL Plt Count (150-450) 10^3/uL Neut % (Auto) (42.2-75.2) % Lymph % (Auto) (20.5-50.1) % [place] % (Auto) (2-8) % Eos % (Auto) (1.0-3.0) % Baso % (Auto) (0.0-1.0) % PT (9.0-12.0) SEC INR (0.9-1.2) APTT (22.0-34.0) SEC Sodium (136-145) mmol/L Potassium (3.5-5.1) mmol/L Chloride (98-107) mmol/L Carbon Dioxide (21-32) mmol/L Anion Gap (7-13) mEq/L BUN (7-18) mg/dL Creatinine (0.70-1.30) mg/dL Est Cr Clr Drug Dosing Estimated GFR (MDRD) BUN/Creatinine Ratio (No establ ref range) Glucose (70-99) mg/dL POC Glucose 319 H (70-99) mg/dL Lactic Acid 4.9 H* (0.4-2.0) mmol/L Calcium (8.5-10.1) mg/dL Phosphorus (2.6-4.7) mg/dL Magnesium (1.8-2.4) mg/dL Total Bilirubin (0.2-1.0) mg/dL AST (15-37) U/L ALT (16-63) U/L Alkaline Phosphatase (46-116) U/L Troponin I High Sens (<=76) pg/mL Total Protein (6.4-8.2) g/dL Albumin (3.4-5.0) g/dL Globulin Albumin/Globulin Ratio Amylase (25-115) U/L Lipase (73-393) U/L Ethyl Alcohol (0) mg/dL Ketones SARS-CoV-2 RNA (NAHED) Negative (NEGATIVE) Meds: Medications Generic Name Dose Route Start Last Admin Trade Name Shanique PRN Reason Stop Dose Admin Dextrose/Water 50 ml 02/05/21 10:31 50% Dextrose In Water 50 Ml Syringe IVPUSH Q15M PRN Hypoglycemia Glucagon 1 mg 02/05/21 10:31 Glucagon,Human Recombinant 1 Mg Vial IM Q15M PRN Hypoglycemia Pantoprazole Sodium 40 mg/ 100 mls @ 20 mls/hr 02/05/21 10:00 02/05/21 10:06 Sodium Chloride IV 20 mls/hr Q5H MARCO Administration Octreotide Acetate 100 mcg/ 100 mls @ 50 mls/hr 02/05/21 10:00 02/05/21 10:05 Sodium Chloride IV 50 mls/hr Q10H MARCO Administration Insulin Regular in 0.9 % NACL 100 unit in 100 mls @ 7.629 mls/hr 02/05/21 10:30 02/05/21 11:19 Myxredlin In Ns 100 Unit/100 Ml IV 0.1 units/kg/hr TITRATE MARCO 7.629 mls/hr Administration Protocol 0.1 UNITS/KG/HR Potassium Chloride/Sodium Chloride 1,000 mls @ 200 mls/hr 02/05/21 12:00 Normal Saline With 40 Meq Kcl IV ASDIRECTED MARCO Sodium Chloride 10 ml 02/05/21 09:41 02/05/21 10:05 Sodium Chloride 0.9% 10 Ml Syringe FLUSH 10 ml ASDIRECTED PRN Administration Keep Vein Open Sodium Chloride 10 ml 02/05/21 09:43 02/05/21 10:06 Sodium Chloride 0.9% 10 Ml Syringe FLUSH 10 ml ASDIRECTED PRN Administration Keep Vein Open Discontinued Medications Generic Name Dose Route Start Last Admin Trade Name Shainque PRN Reason Stop Dose Admin Diphenhydramine HCl 12.5 mg 02/05/21 10:33 02/05/21 10:39 Diphenhydramine 50 Mg/Ml Sdv IVPUSH 02/05/21 10:34 12.5 mg ONETIME ONE Administration Sodium Chloride 1,000 mls @ 999 mls/hr 02/05/21 09:46 02/05/21 10:04 Normal Saline IV 02/05/21 10:46 999 mls/hr .BOLUS ONE Administration Pantoprazole Sodium 40 mg/ 100 mls @ 20 mls/hr 02/05/21 10:00 Sodium Chloride IV .CONTINUOS MARCO Sodium Chloride 1,000 mls @ 999 mls/hr 02/05/21 11:26 02/05/21 11:27 Normal Saline IV 02/05/21 12:26 400 mls/hr .BOLUS ONE Infusion Sodium Chloride 1,000 mls @ 999 mls/hr 02/05/21 11:32 02/05/21 11:49 Normal Saline IV 02/05/21 12:32 Not Given .BOLUS ONE Insulin Human Regular 7 unit 02/05/21 10:31 02/05/21 10:39 Insulin Regular, Human 100 Units/Ml 3 Ml Vial IV 02/05/21 10:32 7 units ONETIME ONE Administration Metoclopramide HCl 10 mg 02/05/21 10:32 02/05/21 10:39 Metoclopramide 10 Mg/2 Ml Sdv IVPUSH 02/05/21 10:33 10 mg ONETIME ONE Administration Octreotide Acetate 50 mcg 02/05/21 09:53 02/05/21 10:05 Octreotide 100 Mcg/Ml Sdv IVPUSH 02/05/21 09:54 50 mcg ONETIME ONE Administration Ondansetron HCl 8 mg 02/05/21 09:46 02/05/21 10:05 Ondansetron 4 Mg/2 Ml Sdv IV 02/05/21 09:47 8 mg ONETIME ONE Administration Ondansetron HCl Confirm 02/05/21 09:58 02/05/21 10:08 Ondansetron 4 Mg/2 Ml Sdv Administered 02/05/21 09:59 Not Given Dose 4 mg .ROUTE .STK-MED ONE Pantoprazole Sodium 80 mg 02/05/21 09:46 02/05/21 10:04 Pantoprazole 40 Mg Vial IVPUSH 02/05/21 09:47 80 mg .BOLUS ONE Administration - Re-Assessments/Exams Free Text/Narrative Re-Assessment/Exam: 02/05/21 11:18 [facility] called at 1100 am and has no beds. 2nd call notified at 11:12 and will attempted to find placement for pt. Free Text/Narrative Re-Assessment/Exam: 02/05/21 13:02 No beds available in the state to transfer pt. [place] 2nd call notified and will find a place for pt to transfer. Dr. Barrera was consulted and will admit the pt to observation until transfer can be arranged. Departure - Departure Time of Disposition: 13:04 Disposition: Admitted As Inpatient 64 Condition: Poor Clinical Impression: Upper GI bleed DKA (diabetic ketoacidosis) Qualifiers: Diabetes mellitus type: type 1 Diabetes mellitus complication detail: without coma Qualified Code(s): E10.10 - Type 1 diabetes mellitus with ketoacidosis without coma - Discharge Information *PRESCRIPTION DRUG MONITORING PROGRAM REVIEWED*: Not Applicable *COPY OF PRESCRIPTION DRUG MONITORING REPORT IN PATIENT FRANCES: Not Applicable Forms: ED Department Discharge - My Orders Last 24 Hours: My Active Orders 02/05/21 10:00 Octreotide [SandoSTATIN] 100 mcg Sodium Chloride 0.9% [Normal Saline] 99 ml IV Q10H 02/05/21 10:30 Insulin Regular in 0.9 % NACL [Myxredlin in NS 100 UNIT/100 ML] 100 unit in 100 ml IV TITRATE 02/05/21 10:31 Dextrose 50% in Water 50 ml IVPUSH Q15M PRN Glucagon,Human Recombinant [GlucaGen] 1 mg IM Q15M PRN 02/05/21 12:00 Sodium Chloride 0.9% with KCl [Normal Saline with 40 mEq KCl] 1,000 ml IV ASDIRECTED - Assessment/Plan Last 24 Hours: My Active Orders 02/05/21 10:00 Octreotide [SandoSTATIN] 100 mcg Sodium Chloride 0.9% [Normal Saline] 99 ml IV Q10H 02/05/21 10:30 Insulin Regular in 0.9 % NACL [Myxredlin in NS 100 UNIT/100 ML] 100 unit in 100 ml IV TITRATE 02/05/21 10:31 Dextrose 50% in Water 50 ml IVPUSH Q15M PRN Glucagon,Human Recombinant [GlucaGen] 1 mg IM Q15M PRN 02/05/21 12:00 Sodium Chloride 0.9% with KCl [Normal Saline with 40 mEq KCl] 1,000 ml IV ASDIRECTED
[2021-02-05] MEDS ORDERED: Pantoprazole 40 MG Vial ONE (14:01)
--- NOTE | 2021-02-05 14:06 | PCM.HP ---
H&P History of Present Illness - General Date of Service: 02/05/21 Admit Problem/Dx: Admission Diagnosis/Problem Admission Diagnosis/Problem Diabetic ketoacidosis Source of Information: Patient, Family, Provider (ER), Other (old records) History Limitations: Reports: No Limitations - History of Present Illness Initial Comments - Free Text/Narative: 45 y/o M c/o vomiting blood and hyperglycemia since last night. Pt has hx of GI bleed a month ago and he was transferred out. He reports when he was transferred no GI consult was performed. Pt reports that he was vomiting yesterday and about 3 am this morning the pt began coffee ground emesis. He reports decreased fluid intake. Type I diabetes and has trouble controlling his blood sugar. Denies fever, cough, chills, cp, drugs, etoh. denies taking NSAIDS, No dark or bloody stools. In ER hyperglycemia was noted. Pt was started on Protonix drip, insulin drip, octreotide drip and IVF. Pt reports feeling better and no more bleeding. - Related Data Allergies/Adverse Reactions: Allergies Allergy/AdvReac Type Severity Reaction Status Date / Time No Known Allergies Allergy Verified 02/05/21 10:33 Home Medications: Home Meds Insulin Aspart [NovoLOG] See Protocol SQ TIDMEALS 08/02/15 [History] Insulin Glarg,Human.Rec.Analog [Lantus] 20 units SQ BEDTIME 08/02/15 [History] atorvaSTATin Calcium [Atorvastatin Calcium] 10 mg PO BEDTIME 08/02/15 [History] Labetalol HCl [Labetalol] 200 mg PO BID 05/09/17 [History] Levothyroxine 200 mcg PO ACBREAKFAST 07/17/20 [History] Losartan Potassium 100 mg PO DAILY 07/17/20 [History] hydroCHLOROthiazide [Hydrochlorothiazide] 25 mg PO DAILY 07/17/20 [History] Omeprazole 20 mg PO DAILY 07/26/20 [History] Timolol Maleate [Timoptic] 1 drop EYEBOTH BID 07/26/20 [History] Past Medical History HEENT History: Reports: Glaucoma, Impaired Vision, Other (See Below) 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" Cardiovascular History: Reports: High Cholesterol, Hypertension Respiratory History: Reports: None Gastrointestinal History: Reports: GERD Genitourinary History: Reports: Chronic Renal Insuffiency, Other (See Below) Other Genitourinary History: ED Musculoskeletal History: Reports: None Neurological History: Reports: Neuropathy, Peripheral Psychiatric History: Reports: Depression Endocrine/Metabolic History: Reports: Diabetes, Type I, Hypothyroidism, Obesity/BMI 30+ Hematologic History: Reports: None Immunologic History: Reports: None Oncologic (Cancer) History: Reports: None Dermatologic History: Reports: Cellulitis - Infectious Disease History Infectious Disease History: Reports: None - Past Surgical History Head Surgeries/Procedures: Reports: None HEENT Surgical History: Reports: Eye Surgery Cardiovascular Surgical History: Reports: None Respiratory Surgical History: Reports: None GI Surgical History: Reports: None Male Surgical History: Reports: None Endocrine Surgical History: Reports: None Neurological Surgical History: Reports: None Musculoskeletal Surgical History: Reports: None Oncologic Surgical History: Reports: None Dermatological Surgical History: Reports: None Social & Family History - Family History Family Medical History: No Pertinent Family History - Tobacco Use Tobacco Use Status *Q: Light Tobacco User Years of Tobacco use: 1 Packs/Tins Daily: 0.5 - Caffeine Use Caffeine Use: Reports: Soda - Alcohol Use Alcohol Use History: No - Recreational Drug Use Recreational Drug Use: No - Living Situation & Occupation Living situation: Reports: , with Family H&P Review of Systems - Review of Systems: Review Of Systems: Comprehensive ROS is negative, except as noted in HPI. General: Denies: Fever, Chills Pulmonary: Denies: Shortness of Breath Cardiovascular: Denies: Chest Pain Gastrointestinal: Reports: Nausea, Vomiting. Denies: Abdominal Pain, Black Stool, Bloody Stool, Decreased Appetite, Melena Skin: Reports: No Symptoms Psychiatric: Reports: No Symptoms Neurological: Reports: No Symptoms Hematologic/Lymphatic: Reports: Other (no wt loss) Immunologic: Reports: No Symptoms Exam - Exam Exam: See Below - Vital Signs Weight: 168 lb 3.2 oz - Exam Quality Assessment: No: Supplemental Oxygen General: Alert, Oriented HEENT: Conjunctiva Clear, EOMI Lungs: Clear to Auscultation, Normal Respiratory Effort Cardiovascular: Regular Rate, Regular Rhythm GI/Abdominal Exam: Normal Bowel Sounds, Soft, Non-Tender Extremities: No Pedal Edema Skin: Warm, Dry Neurological: Cranial Nerves Intact Neuro Extensive - Mental Status: Alert, Oriented x3 Neuro Extensive - Motor, Sensory, Reflexes: CN II-XII Intact, Normal Gait Psychiatric: Alert, Normal Affect, Normal Mood - Patient Data Lab Results Last 24 hrs: Laboratory Results - last 24 hr 02/05/21 02/05/21 02/05/21 Range/Units 09:50 09:50 09:50 WBC 20.2 H (5.0-10.0) 10^3/uL RBC 4.34 L (4.6-6.2) 10^6/uL Hgb 12.7 L (14.0-18.0) g/dL Hct 38.3 L (40.0-54.0) % MCV 88.2 (80-100) fL MCH 29.3 (27.0-34.0) pg MCHC 33.2 (33.0-35.0) g/dL Plt Count 378 D (150-450) 10^3/uL Neut % (Auto) 93.3 H (42.2-75.2) % Lymph % (Auto) 4.2 L (20.5-50.1) % [place] % (Auto) 2.5 (2-8) % Eos % (Auto) 0.0 L (1.0-3.0) % Baso % (Auto) 0.0 (0.0-1.0) % PT 10.4 (9.0-12.0) SEC INR 1.0 (0.9-1.2) APTT 21.3 L (22.0-34.0) SEC Sodium 141 D (136-145) mmol/L Potassium 3.8 D (3.5-5.1) mmol/L Chloride 98 (98-107) mmol/L Carbon Dioxide 21 (21-32) mmol/L Anion Gap 25.8 H (7-13) mEq/L BUN 48 H (7-18) mg/dL Creatinine 2.81 H (0.70-1.30) mg/dL Est Cr Clr Drug Dosing TNP Estimated GFR (MDRD) 24 BUN/Creatinine Ratio 17.1 (No establ ref range) Glucose 460 H* (70-99) mg/dL POC Glucose (70-99) mg/dL Lactic Acid (0.4-2.0) mmol/L Calcium 9.7 (8.5-10.1) mg/dL Phosphorus 3.7 (2.6-4.7) mg/dL Magnesium 2.5 H (1.8-2.4) mg/dL Total Bilirubin 1.2 H (0.2-1.0) mg/dL AST 18 (15-37) U/L ALT 21 (16-63) U/L Alkaline Phosphatase 135 H (46-116) U/L Troponin I High Sens 7 (<=76) pg/mL Total Protein 8.2 (6.4-8.2) g/dL Albumin 3.9 (3.4-5.0) g/dL Globulin 4.3 Albumin/Globulin Ratio 0.9 Amylase 61 (25-115) U/L Lipase 42 L (73-393) U/L Ethyl Alcohol < 3 (0) mg/dL Ketones Small-20 mg/dl SARS-CoV-2 RNA (NAHED) (NEGATIVE) 02/05/21 02/05/21 02/05/21 Range/Units 09:53 11:11 11:39 WBC (5.0-10.0) 10^3/uL RBC (4.6-6.2) 10^6/uL Hgb (14.0-18.0) g/dL Hct (40.0-54.0) % MCV (80-100) fL MCH (27.0-34.0) pg MCHC (33.0-35.0) g/dL Plt Count (150-450) 10^3/uL Neut % (Auto) (42.2-75.2) % Lymph % (Auto) (20.5-50.1) % [place] % (Auto) (2-8) % Eos % (Auto) (1.0-3.0) % Baso % (Auto) (0.0-1.0) % PT (9.0-12.0) SEC INR (0.9-1.2) APTT (22.0-34.0) SEC Sodium (136-145) mmol/L Potassium (3.5-5.1) mmol/L Chloride (98-107) mmol/L Carbon Dioxide (21-32) mmol/L Anion Gap (7-13) mEq/L BUN (7-18) mg/dL Creatinine (0.70-1.30) mg/dL Est Cr Clr Drug Dosing Estimated GFR (MDRD) BUN/Creatinine Ratio (No establ ref range) Glucose (70-99) mg/dL POC Glucose 319 H (70-99) mg/dL Lactic Acid 4.9 H* (0.4-2.0) mmol/L Calcium (8.5-10.1) mg/dL Phosphorus (2.6-4.7) mg/dL Magnesium (1.8-2.4) mg/dL Total Bilirubin (0.2-1.0) mg/dL AST (15-37) U/L ALT (16-63) U/L Alkaline Phosphatase (46-116) U/L Troponin I High Sens (<=76) pg/mL Total Protein (6.4-8.2) g/dL Albumin (3.4-5.0) g/dL Globulin Albumin/Globulin Ratio Amylase (25-115) U/L Lipase (73-393) U/L Ethyl Alcohol (0) mg/dL Ketones SARS-CoV-2 RNA (NAHED) Negative (NEGATIVE) Result Diagrams: 02/05/21 09:50 02/05/21 09:50 [place] Results Last 24 hrs: Microbiology 02/05/21 09:48 Gastric Occult Blood - Final Gastric Fluid 02/05/21 09:50 Anaerobic Blood Culture - Final Blood - Venous - Iv Start Problem List Initiated/Reviewed/Updated: Yes Orders Last 24hrs: Active Orders 24 hr Category Date Time Status Admission Diagnosis [ADT] Stat ADT 02/05/21 13:05 Ordered Admission Status [Patient Status] [ADT] Routine ADT 02/05/21 13:05 Active Cardiac Monitoring [RC] CONTINUOUS Care 02/05/21 13:42 Ordered Height and Weight [RC] DAILY Care 02/05/21 13:41 Ordered Intake and Output [RC] QSHIFT Care 02/05/21 13:42 Ordered Oxygen Therapy [RC] PRN Care 02/05/21 13:41 Ordered Up ad Liliana [RC] ASDIRECTED Care 02/05/21 13:41 Ordered VTE/DVT Education [RC] PER UNIT ROUTINE Care 02/05/21 13:41 Ordered Vital Signs [RC] Q4H Care 02/05/21 13:41 Ordered Clear Liquid Diet [DIET] Diet 02/05/21 Dinner Ordered ABG [BLOOD GAS ARTERIAL] [BG] Stat Lab 02/05/21 09:43 Ordered BASIC METABOLIC PANEL,BMP [CHEM] Q6H Lab 02/05/21 14:00 Ordered BASIC METABOLIC PANEL,BMP [CHEM] Q6 Lab 02/05/21 20:00 Ordered BASIC METABOLIC PANEL,BMP [CHEM] Q6 Lab 02/06/21 02:00 Ordered BASIC METABOLIC PANEL,BMP [CHEM] Q6 Lab 02/06/21 08:00 Ordered BASIC METABOLIC PANEL,BMP [CHEM] Q6 Lab 02/06/21 14:00 Ordered BASIC METABOLIC PANEL,BMP [CHEM] Q6 Lab 02/06/21 20:00 Ordered CBC W/O DIFF,HEMOGRAM [HEME] Q6 Lab 02/05/21 13:59 Ordered CBC W/O DIFF,HEMOGRAM [HEME] Q6 Lab 02/05/21 19:59 Ordered CBC W/O DIFF,HEMOGRAM [HEME] Q6 Lab 02/06/21 01:59 Ordered CBC W/O DIFF,HEMOGRAM [HEME] Q6 Lab 02/06/21 07:59 Ordered CBC W/O DIFF,HEMOGRAM [HEME] Q Lab 02/06/21 13:59 Ordered CBC W/O DIFF,HEMOGRAM [HEME] Q6 Lab 02/06/21 19:59 Ordered CULTURE BLOOD [BC] Stat Lab 02/05/21 09:50 Results CULTURE BLOOD [BC] Stat Lab 02/05/21 09:53 Received DRUG SCREEN URINE BIORAD [URCHEM] Stat Lab 02/05/21 09:42 Ordered LACTIC ACID [CHEM] Routine Lab 02/05/21 12:26 Ordered UA RFX [place] AND CULT IF INDIC [URIN] Stat Lab 02/05/21 09:43 Ordered Acetaminophen [TylenoL] Med 02/05/21 13:41 Ordered 650 mg PO Q4H PRN Dextrose 50% in Water Med 02/05/21 10:31 Active 50 ml IVPUSH Q15M PRN Glucagon,Human Recombinant [GlucaGen] Med 02/05/21 10:31 Active 1 mg IM Q15M PRN Insulin Regular in 0.9 % NACL [Myxredlin in NS 100 UNIT Med 02/05/21 10:30 Active /100 ML] 100 unit in 100 ml IV TITRATE Octreotide [SandoSTATIN] 100 mcg Med 02/05/21 10:00 Active Sodium Chloride 0.9% [Normal Saline] 99 ml IV Q10H Pantoprazole [ProTONIX IV] 40 mg Med 02/05/21 10:00 Active Sodium Chloride 0.9% [Normal Saline] 100 ml IV Q5H Sodium Chloride 0.9% [Saline Flush] Med 02/05/21 09:41 Active 10 ml FLUSH ASDIRECTED PRN Sodium Chloride 0.9% [Saline Flush] Med 02/05/21 09:43 Active 10 ml FLUSH ASDIRECTED PRN Sodium Chloride 0.9% with KCl [Normal Saline with 40 Med 02/05/21 12:00 Active mEq KCl] 1,000 ml IV ASDIRECTED Blood Culture x2 Reflex Set [OM.PC] Stat Oth 02/05/21 09:41 Ordered Peripheral IV Insertion Adult [OM.PC] Stat Oth 02/05/21 09:41 Ordered Peripheral IV Insertion Adult [OM.PC] Stat Oth 02/05/21 09:43 Ordered Resuscitation Status Routine Resus Stat 02/05/21 13:41 Ordered Medication Orders Acetaminophen (Acetaminophen 325 Mg Tab) 650 mg PO Q4H PRN PRN Reason: Pain (Mild 1-3)/fever Dextrose/Water (50% Dextrose In Water 50 Ml Syringe) 50 ml IVPUSH Q15M PRN PRN Reason: Hypoglycemia Glucagon (Glucagon,Human Recombinant 1 Mg Vial) 1 mg IM Q15M PRN PRN Reason: Hypoglycemia Pantoprazole Sodium 40 mg/ (Sodium Chloride) 100 mls @ 20 mls/hr IV Q5H [facility] Last Admin: 02/05/21 10:06 Dose: 20 mls/hr Documented by: GIOVANY Octreotide Acetate 100 mcg/ (Sodium Chloride) 100 mls @ 50 mls/hr IV Q10H [facility] Last Admin: 02/05/21 10:05 Dose: 50 mls/hr Documented by: GIOVANY Insulin Regular in 0.9 % NACL (Myxredlin In Ns 100 Unit/100 Ml) 100 unit in 100 mls @ 7.629 mls/hr IV TITRATE MARCO; Protocol Last Admin: 02/05/21 11:19 Dose: 0.1 units/kg/hr, 7.629 mls/hr Documented by: GIOVANY Cosigned by: SHARATH Potassium Chloride/Sodium Chloride (Normal Saline With 40 Meq Kcl) 1,000 mls @ 200 mls/hr IV ASDIRECTED [place] Sodium Chloride (Sodium Chloride 0.9% 10 Ml Syringe) 10 ml FLUSH ASDIRECTED PRN PRN Reason: Keep Vein Open Last Admin: 02/05/21 10:05 Dose: 10 ml Documented by: GIOVANY Sodium Chloride (Sodium Chloride 0.9% 10 Ml Syringe) 10 ml FLUSH ASDIRECTED PRN PRN Reason: Keep Vein Open Last Admin: 02/05/21 10:06 Dose: 10 ml Documented by: GIOVANY Assessment/Plan Comment:: 45 y/o M c/o vomiting blood and hyperglycemia since last night. Pt has hx of GI bleed a month ago and he was transferred out. He reports when he was transferred no GI consult was performed. About 3 am this morning the pt began coffee ground emesis. He reports decreased fluid intake. Type I diabetes and has trouble controlling his blood sugar. Denies fever, cough, chills, cp, drugs, etoh. Upper GI bleeding ER was not able to locate a bed for higher level of care [place] the [place]. Monitor H/H. Continue with Protonix drip, Octreotide. To transfuse if need>> Pt and his : agree. Pt had EGD done on July 27/2021 : Gastroparesis diverticulum and esophageal moniliasis. CT : GB sludge. Leukocytosis: likely reactive Hyperglycemia and DM type 1 and early DKA: repeat BS now 123 >> insulin drip can be stopped and pt can be placed on his home protocol. DVT : low risk . No heparin due to bleeding. HTN and hyperlipemia: resume home medications. Full code time spent 45 minj
[2021-02-05] MEDS: Sodium Chloride 0.9% with KCl 1,000 ML IV SCH ×2 (14:10→23:23)
[2021-02-05 14:53] LABS: ANION GAP 14.7 mEq/L (7-13)
[2021-02-05] MEDS: Insulin Glarg,Human.Rec.Analog 100 Unit/ML SUBCUT SCH (14:56)
[2021-02-05] MEDS: Ondansetron 4 MG/2 ML SDV IVPUSH PRN (15:23)
[2021-02-05] MEDS: Insulin Lispro 100 Units/ML 3 ML Vial SUBCUT SCH (16:51)
[2021-02-05 16:59] LABS: AMPHETAMINES,URINE NEGATIVE (NEGATIVE); BARBITURATES,URINE NEGATIVE (NEGATIVE); BENZODIAZEPINE,URINE NEGATIVE (NEGATIVE); MDMA (ECSTASY), URINE NEGATIVE (NEGATIVE); METHADONE,URINE NEGATIVE (NEGATIVE); METHAMPHETAMINES,URINE NEGATIVE (NEGATIVE); OPIATES,URINE NEGATIVE (NEGATIVE); OXYCODONE,URINE NEGATIVE (NEGATIVE); PHENCYCLIDINE,URINE NEGATIVE (NEGATIVE); TCA,URINE NEGATIVE (NEGATIVE)
[2021-02-05] MEDS: Metoclopramide 10 MG/2 ML SDV IVPUSH PRN (19:12)
[2021-02-05] MEDS ORDERED: Simethicone 80 MG Tab.Chew PO ONE (21:51)
[2021-02-05] MEDS: Promethazine 25 MG/ML SDV IM PRN (22:26)
[2021-02-05] MEDS: Piperacillin/Tazobactam 3.375 GM in Sodium Chloride 0.9% 100 ML IV SCH (22:39)
[2021-02-06] MEDS: Acetaminophen 325 MG Tab PO PRN ×2 (00:27→16:22)
[2021-02-06] MEDS: Pantoprazole 40 MG in Sodium Chloride 0.9% 100 ML IV SCH ×2 (01:33→06:18)
[2021-02-06] MEDS: Ondansetron 4 MG/2 ML SDV IVPUSH PRN ×2 (01:33→08:47)
[2021-02-06] MEDS: Metoclopramide 10 MG/2 ML SDV IVPUSH PRN ×2 (03:10→14:59)
[2021-02-06] MEDS: Piperacillin/Tazobactam 3.375 GM in Sodium Chloride 0.9% 100 ML IV SCH ×4 (03:45→21:34)
[2021-02-06] MEDS: Promethazine 25 MG/ML SDV IM PRN ×2 (04:20→11:19)
[2021-02-06] MEDS ORDERED: Simethicone 80 MG Tab.Chew PO ONE ×2 (06:00)
[2021-02-06] MEDS: Levothyroxine 100 MCG Tab PO SCH (06:16)
[2021-02-06] MEDS: Octreotide 100 MCG in Sodium Chloride 0.9% 99 ML IV SCH (06:18)
[2021-02-06 06:41] LABS: ANION GAP 17.8 mEq/L (7-13)
[2021-02-06] MEDS: Insulin Lispro 100 Units/ML 3 ML Vial SUBCUT SCH ×3 (08:25→17:18)
[2021-02-06] MEDS: Sertraline 50 MG Tab PO SCH (08:26)
--- NOTE | 2021-02-06 09:31 | PCM.PN ---
- General Info Date of Service: 02/06/21 Functional Status: Denies: Pain Controlled, Tolerating Diet - Review of Systems General: Reports: Fever HEENT: Reports: No Symptoms Pulmonary: Denies: Shortness of Breath Cardiovascular: Denies: Chest Pain Gastrointestinal: Reports: Vomiting (clear : no more coffee ground) Genitourinary: Denies: Dysuria Skin: Reports: No Symptoms Neurological: Reports: No Symptoms Psychiatric: Reports: No Symptoms - Patient Data Vitals - Most Recent: Last Vital Signs Temp 100.4 F 02/06/21 08:00 Pulse 90 02/06/21 08:00 Resp 20 02/06/21 08:00 BP 194/97 H 02/06/21 08:00 Pulse Ox 99 02/06/21 08:00 Weight - Most Recent: 178 lb 9.6 oz I&O - Last 24 Hours: Intake & Output 02/05/21 02/06/21 02/06/21 22:59 06:59 14:59 Intake Total 50 Output Total 400 100 Balance -350 -100 Lab Results Last 24 Hours: Laboratory Results - last 24 hr 02/05/21 02/05/21 02/05/21 Range/Units 09:42 09:43 09:50 WBC (5.0-10.0) 10^3/uL RBC (4.6-6.2) 10^6/uL Hgb (14.0-18.0) g/dL Hct (40.0-54.0) % MCV (80-100) fL MCH (27.0-34.0) pg MCHC (33.0-35.0) g/dL Plt Count (150-450) 10^3/uL Neut % (Auto) (42.2-75.2) % Lymph % (Auto) (20.5-50.1) % [place] % (Auto) (2-8) % Eos % (Auto) (1.0-3.0) % Baso % (Auto) (0.0-1.0) % PT (9.0-12.0) SEC INR (0.9-1.2) APTT (22.0-34.0) SEC Sodium 141 D (136-145) mmol/L Potassium 3.8 D (3.5-5.1) mmol/L Chloride 98 (98-107) mmol/L Carbon Dioxide 21 (21-32) mmol/L Anion Gap 25.8 H (7-13) mEq/L BUN 48 H (7-18) mg/dL Creatinine 2.81 H (0.70-1.30) mg/dL Est Cr Clr Drug Dosing TNP Estimated GFR (MDRD) 24 BUN/Creatinine Ratio 17.1 (No establ ref range) Glucose 460 H* (70-99) mg/dL POC Glucose (70-99) mg/dL Lactic Acid (0.4-2.0) mmol/L Calcium 9.7 (8.5-10.1) mg/dL Phosphorus 3.7 (2.6-4.7) mg/dL Magnesium 2.5 H (1.8-2.4) mg/dL Total Bilirubin 1.2 H (0.2-1.0) mg/dL AST 18 (15-37) U/L ALT 21 (16-63) U/L Alkaline Phosphatase 135 H (46-116) U/L Troponin I High Sens 7 (<=76) pg/mL Total Protein 8.2 (6.4-8.2) g/dL Albumin 3.9 (3.4-5.0) g/dL Globulin 4.3 Albumin/Globulin Ratio 0.9 Amylase 61 (25-115) U/L Lipase 42 L (73-393) U/L Urine Color Yellow (YELLOW) Urine Appearance Slightly cloudy (CLEAR) Urine pH 5.0 (5.0-9.0) Ur Specific [place] 1.025 (1.005-1.030) Urine Protein 30 H (NEGATIVE) Urine Glucose (UA) 500 H (NEGATIVE) Urine Ketones 15 H (NEGATIVE) Urine Occult Blood Negative (NEGATIVE) Urine Nitrite Negative (NEGATIVE) Urine Bilirubin Small H (NEGATIVE) Urine Urobilinogen 0.2 (0.2-1.0) mg/dL Ur Leukocyte Esterase Negative (NEGATIVE) U Hyaline Cast (Auto) Moderate Urine RBC 0-5 (0-5) /HPF Urine WBC 0-5 (0-5/HPF) /HPF Ur Epithelial Cells Few (NOT SEEN) /HPF Amorphous Sediment Rare (NOT SEEN) /HPF Urine Bacteria Rare (0-FEW/HPF) /HPF Urine Mucus Few H (NOT SEEN) /LPF Urine Other See note Urine Opiates Screen Negative (NEGATIVE) Ur Oxycodone Screen Negative (NEGATIVE) Urine Methadone Screen Negative (NEGATIVE) Ur Barbiturates Screen Negative (NEGATIVE) U Tricyclic Antidepress Negative (NEGATIVE) Ur Phencyclidine Scrn Negative (NEGATIVE) Ur Amphetamine Screen Negative (NEGATIVE) U Methamphetamines Scrn Negative (NEGATIVE) Urine MDMA Screen Negative (NEGATIVE) U Benzodiazepines Scrn Negative (NEGATIVE) Urine Cocaine Screen Negative (NEGATIVE) U Marijuana (THC) Screen Negative (NEGATIVE) Ethyl Alcohol < 3 (0) mg/dL Ketones Small-20 mg/dl SARS-CoV-2 RNA (NAHED) (NEGATIVE) Blood Type Gel Antibody Screen 02/05/21 02/05/21 02/05/21 Range/Units 09:50 09:50 09:53 WBC 20.2 H (5.0-10.0) 10^3/uL RBC 4.34 L (4.6-6.2) 10^6/uL Hgb 12.7 L (14.0-18.0) g/dL Hct 38.3 L (40.0-54.0) % MCV 88.2 (80-100) fL MCH 29.3 (27.0-34.0) pg MCHC 33.2 (33.0-35.0) g/dL Plt Count 378 D (150-450) 10^3/uL Neut % (Auto) 93.3 H (42.2-75.2) % Lymph % (Auto) 4.2 L (20.5-50.1) % [place] % (Auto) 2.5 (2-8) % Eos % (Auto) 0.0 L (1.0-3.0) % Baso % (Auto) 0.0 (0.0-1.0) % PT 10.4 (9.0-12.0) SEC INR 1.0 (0.9-1.2) APTT 21.3 L (22.0-34.0) SEC Sodium (136-145) mmol/L Potassium (3.5-5.1) mmol/L Chloride (98-107) mmol/L Carbon Dioxide (21-32) mmol/L Anion Gap (7-13) mEq/L BUN (7-18) mg/dL Creatinine (0.70-1.30) mg/dL Est Cr Clr Drug Dosing Estimated GFR (MDRD) BUN/Creatinine Ratio (No establ ref range) Glucose (70-99) mg/dL POC Glucose (70-99) mg/dL Lactic Acid 4.9 H* (0.4-2.0) mmol/L Calcium (8.5-10.1) mg/dL Phosphorus (2.6-4.7) mg/dL Magnesium (1.8-2.4) mg/dL Total Bilirubin (0.2-1.0) mg/dL AST (15-37) U/L ALT (16-63) U/L Alkaline Phosphatase (46-116) U/L Troponin I High Sens (<=76) pg/mL Total Protein (6.4-8.2) g/dL Albumin (3.4-5.0) g/dL Globulin Albumin/Globulin Ratio Amylase (25-115) U/L Lipase (73-393) U/L Urine Color (YELLOW) Urine Appearance (CLEAR) Urine pH (5.0-9.0) Ur Specific [place] (1.005-1.030) Urine Protein (NEGATIVE) Urine Glucose (UA) (NEGATIVE) Urine Ketones (NEGATIVE) Urine Occult Blood (NEGATIVE) Urine Nitrite (NEGATIVE) Urine Bilirubin (NEGATIVE) Urine Urobilinogen (0.2-1.0) mg/dL Ur Leukocyte Esterase (NEGATIVE) U Hyaline Cast (Auto) Urine RBC (0-5) /HPF Urine WBC (0-5/HPF) /HPF Ur Epithelial Cells (NOT SEEN) /HPF Amorphous Sediment (NOT SEEN) /HPF Urine Bacteria (0-FEW/HPF) /HPF Urine Mucus (NOT SEEN) /LPF Urine Other Urine Opiates Screen (NEGATIVE) Ur Oxycodone Screen (NEGATIVE) Urine Methadone Screen (NEGATIVE) Ur Barbiturates Screen (NEGATIVE) U Tricyclic Antidepress (NEGATIVE) Ur Phencyclidine Scrn (NEGATIVE) Ur Amphetamine Screen (NEGATIVE) U Methamphetamines Scrn (NEGATIVE) Urine MDMA Screen (NEGATIVE) U Benzodiazepines Scrn (NEGATIVE) Urine Cocaine Screen (NEGATIVE) U Marijuana (THC) Screen (NEGATIVE) Ethyl Alcohol (0) mg/dL Ketones SARS-CoV-2 RNA (NAHED) (NEGATIVE) Blood Type Gel Antibody Screen 02/05/21 02/05/21 02/05/21 Range/Units 11:11 11:39 14:21 WBC (5.0-10.0) 10^3/uL RBC (4.6-6.2) 10^6/uL Hgb (14.0-18.0) g/dL Hct (40.0-54.0) % MCV (80-100) fL MCH (27.0-34.0) pg MCHC (33.0-35.0) g/dL Plt Count (150-450) 10^3/uL Neut % (Auto) (42.2-75.2) % Lymph % (Auto) (20.5-50.1) % [place] % (Auto) (2-8) % Eos % (Auto) (1.0-3.0) % Baso % (Auto) (0.0-1.0) % PT (9.0-12.0) SEC INR (0.9-1.2) APTT (22.0-34.0) SEC Sodium (136-145) mmol/L Potassium (3.5-5.1) mmol/L Chloride (98-107) mmol/L Carbon Dioxide (21-32) mmol/L Anion Gap (7-13) mEq/L BUN (7-18) mg/dL Creatinine (0.70-1.30) mg/dL Est Cr Clr Drug Dosing Estimated GFR (MDRD) BUN/Creatinine Ratio (No establ ref range) Glucose (70-99) mg/dL POC Glucose 319 H 128 H (70-99) mg/dL Lactic Acid (0.4-2.0) mmol/L Calcium (8.5-10.1) mg/dL Phosphorus (2.6-4.7) mg/dL Magnesium (1.8-2.4) mg/dL Total Bilirubin (0.2-1.0) mg/dL AST (15-37) U/L ALT (16-63) U/L Alkaline Phosphatase (46-116) U/L Troponin I High Sens (<=76) pg/mL Total Protein (6.4-8.2) g/dL Albumin (3.4-5.0) g/dL Globulin Albumin/Globulin Ratio Amylase (25-115) U/L Lipase (73-393) U/L Urine Color (YELLOW) Urine Appearance (CLEAR) Urine pH (5.0-9.0) Ur Specific [place] (1.005-1.030) Urine Protein (NEGATIVE) Urine Glucose (UA) (NEGATIVE) Urine Ketones (NEGATIVE) Urine Occult Blood (NEGATIVE) Urine Nitrite (NEGATIVE) Urine Bilirubin (NEGATIVE) Urine Urobilinogen (0.2-1.0) mg/dL Ur Leukocyte Esterase (NEGATIVE) U Hyaline Cast (Auto) Urine RBC (0-5) /HPF Urine WBC (0-5/HPF) /HPF Ur Epithelial Cells (NOT SEEN) /HPF Amorphous Sediment (NOT SEEN) /HPF Urine Bacteria (0-FEW/HPF) /HPF Urine Mucus (NOT SEEN) /LPF Urine Other Urine Opiates Screen (NEGATIVE) Ur Oxycodone Screen (NEGATIVE) Urine Methadone Screen (NEGATIVE) Ur Barbiturates Screen (NEGATIVE) U Tricyclic Antidepress (NEGATIVE) Ur Phencyclidine Scrn (NEGATIVE) Ur Amphetamine Screen (NEGATIVE) U Methamphetamines Scrn (NEGATIVE) Urine MDMA Screen (NEGATIVE) U Benzodiazepines Scrn (NEGATIVE) Urine Cocaine Screen (NEGATIVE) U Marijuana (THC) Screen (NEGATIVE) Ethyl Alcohol (0) mg/dL Ketones SARS-CoV-2 RNA (NAHED) Negative (NEGATIVE) Blood Type Gel Antibody Screen 02/05/21 02/05/21 02/05/21 Range/Units 14:33 14:33 14:33 WBC 22.1 H (5.0-10.0) 10^3/uL RBC 4.33 L (4.6-6.2) 10^6/uL Hgb 12.7 L (14.0-18.0) g/dL Hct 37.9 L (40.0-54.0) % MCV 87.5 (80-100) fL MCH 29.3 (27.0-34.0) pg MCHC 33.5 (33.0-35.0) g/dL Plt Count 316 (150-450) 10^3/uL Neut % (Auto) (42.2-75.2) % Lymph % (Auto) (20.5-50.1) % [place] % (Auto) (2-8) % Eos % (Auto) (1.0-3.0) % Baso % (Auto) (0.0-1.0) % PT (9.0-12.0) SEC INR (0.9-1.2) APTT (22.0-34.0) SEC Sodium 146 H (136-145) mmol/L Potassium 3.7 (3.5-5.1) mmol/L Chloride 108 H (98-107) mmol/L Carbon Dioxide 27 (21-32) mmol/L Anion Gap 14.7 H (7-13) mEq/L BUN 48 H (7-18) mg/dL Creatinine 2.36 H (0.70-1.30) mg/dL Est Cr Clr Drug Dosing 44.34 Estimated GFR (MDRD) 30 BUN/Creatinine Ratio (No establ ref range) Glucose 145 H (70-99) mg/dL POC Glucose (70-99) mg/dL Lactic Acid 2.3 H* (0.4-2.0) mmol/L Calcium 9.4 (8.5-10.1) mg/dL Phosphorus (2.6-4.7) mg/dL Magnesium (1.8-2.4) mg/dL Total Bilirubin (0.2-1.0) mg/dL AST (15-37) U/L ALT (16-63) U/L Alkaline Phosphatase (46-116) U/L Troponin I High Sens (<=76) pg/mL Total Protein (6.4-8.2) g/dL Albumin (3.4-5.0) g/dL Globulin Albumin/Globulin Ratio Amylase (25-115) U/L Lipase (73-393) U/L Urine Color (YELLOW) Urine Appearance (CLEAR) Urine pH (5.0-9.0) Ur Specific [place] (1.005-1.030) Urine Protein (NEGATIVE) Urine Glucose (UA) (NEGATIVE) Urine Ketones (NEGATIVE) Urine Occult Blood (NEGATIVE) Urine Nitrite (NEGATIVE) Urine Bilirubin (NEGATIVE) Urine Urobilinogen (0.2-1.0) mg/dL Ur Leukocyte Esterase (NEGATIVE) U Hyaline Cast (Auto) Urine RBC (0-5) /HPF Urine WBC (0-5/HPF) /HPF Ur Epithelial Cells (NOT SEEN) /HPF Amorphous Sediment (NOT SEEN) /HPF Urine Bacteria (0-FEW/HPF) /HPF Urine Mucus (NOT SEEN) /LPF Urine Other Urine Opiates Screen (NEGATIVE) Ur Oxycodone Screen (NEGATIVE) Urine Methadone Screen (NEGATIVE) Ur Barbiturates Screen (NEGATIVE) U Tricyclic Antidepress (NEGATIVE) Ur Phencyclidine Scrn (NEGATIVE) Ur Amphetamine Screen (NEGATIVE) U Methamphetamines Scrn (NEGATIVE) Urine MDMA Screen (NEGATIVE) U Benzodiazepines Scrn (NEGATIVE) Urine Cocaine Screen (NEGATIVE) U Marijuana (THC) Screen (NEGATIVE) Ethyl Alcohol (0) mg/dL Ketones SARS-CoV-2 RNA (NAHED) (NEGATIVE) Blood Type Gel Antibody Screen 02/05/21 02/05/21 02/05/21 Range/Units 14:33 15:29 16:43 WBC (5.0-10.0) 10^3/uL RBC (4.6-6.2) 10^6/uL Hgb (14.0-18.0) g/dL Hct (40.0-54.0) % MCV (80-100) fL MCH (27.0-34.0) pg MCHC (33.0-35.0) g/dL Plt Count (150-450) 10^3/uL Neut % (Auto) (42.2-75.2) % Lymph % (Auto) (20.5-50.1) % [place] % (Auto) (2-8) % Eos % (Auto) (1.0-3.0) % Baso % (Auto) (0.0-1.0) % PT (9.0-12.0) SEC INR (0.9-1.2) APTT (22.0-34.0) SEC Sodium (136-145) mmol/L Potassium (3.5-5.1) mmol/L Chloride (98-107) mmol/L Carbon Dioxide (21-32) mmol/L Anion Gap (7-13) mEq/L BUN (7-18) mg/dL Creatinine (0.70-1.30) mg/dL Est Cr Clr Drug Dosing Estimated GFR (MDRD) BUN/Creatinine Ratio (No establ ref range) Glucose (70-99) mg/dL POC Glucose 92 96 (70-99) mg/dL Lactic Acid (0.4-2.0) mmol/L Calcium (8.5-10.1) mg/dL Phosphorus (2.6-4.7) mg/dL Magnesium (1.8-2.4) mg/dL Total Bilirubin (0.2-1.0) mg/dL AST (15-37) U/L ALT (16-63) U/L Alkaline Phosphatase (46-116) U/L Troponin I High Sens (<=76) pg/mL Total Protein (6.4-8.2) g/dL Albumin (3.4-5.0) g/dL Globulin Albumin/Globulin Ratio Amylase (25-115) U/L Lipase (73-393) U/L Urine Color (YELLOW) Urine Appearance (CLEAR) Urine pH (5.0-9.0) Ur Specific [place] (1.005-1.030) Urine Protein (NEGATIVE) Urine Glucose (UA) (NEGATIVE) Urine Ketones (NEGATIVE) Urine Occult Blood (NEGATIVE) Urine Nitrite (NEGATIVE) Urine Bilirubin (NEGATIVE) Urine Urobilinogen (0.2-1.0) mg/dL Ur Leukocyte Esterase (NEGATIVE) U Hyaline Cast (Auto) Urine RBC (0-5) /HPF Urine WBC (0-5/HPF) /HPF Ur Epithelial Cells (NOT SEEN) /HPF Amorphous Sediment (NOT SEEN) /HPF Urine Bacteria (0-FEW/HPF) /HPF Urine Mucus (NOT SEEN) /LPF Urine Other Urine Opiates Screen (NEGATIVE) Ur Oxycodone Screen (NEGATIVE) Urine Methadone Screen (NEGATIVE) Ur Barbiturates Screen (NEGATIVE) U Tricyclic Antidepress (NEGATIVE) Ur Phencyclidine Scrn (NEGATIVE) Ur Amphetamine Screen (NEGATIVE) U Methamphetamines Scrn (NEGATIVE) Urine MDMA Screen (NEGATIVE) U Benzodiazepines Scrn (NEGATIVE) Urine Cocaine Screen (NEGATIVE) U Marijuana (THC) Screen (NEGATIVE) Ethyl Alcohol (0) mg/dL Ketones SARS-CoV-2 RNA (NAHED) (NEGATIVE) Blood Type O POSITIVE Gel Antibody Screen Negative 02/05/21 02/06/21 02/06/21 Range/Units 22:01 05:50 05:50 WBC 15.7 H (5.0-10.0) 10^3/uL RBC 3.64 L (4.6-6.2) 10^6/uL Hgb 10.7 L D (14.0-18.0) g/dL Hct 32.7 L (40.0-54.0) % MCV 89.8 (80-100) fL MCH 29.4 (27.0-34.0) pg MCHC 32.7 L (33.0-35.0) g/dL Plt Count 276 (150-450) 10^3/uL Neut % (Auto) (42.2-75.2) % Lymph % (Auto) (20.5-50.1) % [place] % (Auto) (2-8) % Eos % (Auto) (1.0-3.0) % Baso % (Auto) (0.0-1.0) % PT (9.0-12.0) SEC INR (0.9-1.2) APTT (22.0-34.0) SEC Sodium 148 H (136-145) mmol/L Potassium 4.8 (3.5-5.1) mmol/L Chloride 111 H (98-107) mmol/L Carbon Dioxide 24 (21-32) mmol/L Anion Gap 17.8 H (7-13) mEq/L BUN 43 H (7-18) mg/dL Creatinine 2.30 H (0.70-1.30) mg/dL Est Cr Clr Drug Dosing 45.50 Estimated GFR (MDRD) 31 BUN/Creatinine Ratio (No establ ref range) Glucose 184 H (70-99) mg/dL POC Glucose 106 H (70-99) mg/dL Lactic Acid (0.4-2.0) mmol/L Calcium 8.9 (8.5-10.1) mg/dL Phosphorus (2.6-4.7) mg/dL Magnesium (1.8-2.4) mg/dL Total Bilirubin (0.2-1.0) mg/dL AST (15-37) U/L ALT (16-63) U/L Alkaline Phosphatase (46-116) U/L Troponin I High Sens (<=76) pg/mL Total Protein (6.4-8.2) g/dL Albumin (3.4-5.0) g/dL Globulin Albumin/Globulin Ratio Amylase (25-115) U/L Lipase (73-393) U/L Urine Color (YELLOW) Urine Appearance (CLEAR) Urine pH (5.0-9.0) Ur Specific [place] (1.005-1.030) Urine Protein (NEGATIVE) Urine Glucose (UA) (NEGATIVE) Urine Ketones (NEGATIVE) Urine Occult Blood (NEGATIVE) Urine Nitrite (NEGATIVE) Urine Bilirubin (NEGATIVE) Urine Urobilinogen (0.2-1.0) mg/dL Ur Leukocyte Esterase (NEGATIVE) U Hyaline Cast (Auto) Urine RBC (0-5) /HPF Urine WBC (0-5/HPF) /HPF Ur Epithelial Cells (NOT SEEN) /HPF Amorphous Sediment (NOT SEEN) /HPF Urine Bacteria (0-FEW/HPF) /HPF Urine Mucus (NOT SEEN) /LPF Urine Other Urine Opiates Screen (NEGATIVE) Ur Oxycodone Screen (NEGATIVE) Urine Methadone Screen (NEGATIVE) Ur Barbiturates Screen (NEGATIVE) U Tricyclic Antidepress (NEGATIVE) Ur Phencyclidine Scrn (NEGATIVE) Ur Amphetamine Screen (NEGATIVE) U Methamphetamines Scrn (NEGATIVE) Urine MDMA Screen (NEGATIVE) U Benzodiazepines Scrn (NEGATIVE) Urine Cocaine Screen (NEGATIVE) U Marijuana (THC) Screen (NEGATIVE) Ethyl Alcohol (0) mg/dL Ketones SARS-CoV-2 RNA (NAHED) (NEGATIVE) Blood Type Gel Antibody Screen 02/06/21 Range/Units 07:48 WBC (5.0-10.0) 10^3/uL RBC (4.6-6.2) 10^6/uL Hgb (14.0-18.0) g/dL Hct (40.0-54.0) % MCV (80-100) fL MCH (27.0-34.0) pg MCHC (33.0-35.0) g/dL Plt Count (150-450) 10^3/uL Neut % (Auto) (42.2-75.2) % Lymph % (Auto) (20.5-50.1) % [place] % (Auto) (2-8) % Eos % (Auto) (1.0-3.0) % Baso % (Auto) (0.0-1.0) % PT (9.0-12.0) SEC INR (0.9-1.2) APTT (22.0-34.0) SEC Sodium (136-145) mmol/L Potassium (3.5-5.1) mmol/L Chloride (98-107) mmol/L Carbon Dioxide (21-32) mmol/L Anion Gap (7-13) mEq/L BUN (7-18) mg/dL Creatinine (0.70-1.30) mg/dL Est Cr Clr Drug Dosing Estimated GFR (MDRD) BUN/Creatinine Ratio (No establ ref range) Glucose (70-99) mg/dL POC Glucose 262 H (70-99) mg/dL Lactic Acid (0.4-2.0) mmol/L Calcium (8.5-10.1) mg/dL Phosphorus (2.6-4.7) mg/dL Magnesium (1.8-2.4) mg/dL Total Bilirubin (0.2-1.0) mg/dL AST (15-37) U/L ALT (16-63) U/L Alkaline Phosphatase (46-116) U/L Troponin I High Sens (<=76) pg/mL Total Protein (6.4-8.2) g/dL Albumin (3.4-5.0) g/dL Globulin Albumin/Globulin Ratio Amylase (25-115) U/L Lipase (73-393) U/L Urine Color (YELLOW) Urine Appearance (CLEAR) Urine pH (5.0-9.0) Ur Specific [place] (1.005-1.030) Urine Protein (NEGATIVE) Urine Glucose (UA) (NEGATIVE) Urine Ketones (NEGATIVE) Urine Occult Blood (NEGATIVE) Urine Nitrite (NEGATIVE) Urine Bilirubin (NEGATIVE) Urine Urobilinogen (0.2-1.0) mg/dL Ur Leukocyte Esterase (NEGATIVE) U Hyaline Cast (Auto) Urine RBC (0-5) /HPF Urine WBC (0-5/HPF) /HPF Ur Epithelial Cells (NOT SEEN) /HPF Amorphous Sediment (NOT SEEN) /HPF Urine Bacteria (0-FEW/HPF) /HPF Urine Mucus (NOT SEEN) /LPF Urine Other Urine Opiates Screen (NEGATIVE) Ur Oxycodone Screen (NEGATIVE) Urine Methadone Screen (NEGATIVE) Ur Barbiturates Screen (NEGATIVE) U Tricyclic Antidepress (NEGATIVE) Ur Phencyclidine Scrn (NEGATIVE) Ur Amphetamine Screen (NEGATIVE) U Methamphetamines Scrn (NEGATIVE) Urine MDMA Screen (NEGATIVE) U Benzodiazepines Scrn (NEGATIVE) Urine Cocaine Screen (NEGATIVE) U Marijuana (THC) Screen (NEGATIVE) Ethyl Alcohol (0) mg/dL Ketones SARS-CoV-2 RNA (NAHED) (NEGATIVE) Blood Type Gel Antibody Screen [place] Results Last 24 Hours: Microbiology 02/05/21 09:48 Gastric Occult Blood - Final Gastric Fluid 02/05/21 09:50 Anaerobic Blood Culture - Final Blood - Venous - Iv Start Med Orders - Current: Current Medications Acetaminophen (Acetaminophen 325 Mg Tab) 650 mg PO Q4H PRN PRN Reason: Pain (Mild 1-3)/fever Last Admin: 02/06/21 00:27 Dose: 650 mg Documented by: Amlodipine Besylate (Amlodipine 5 Mg Tab) 5 mg PO DAILY [facility] Dextrose/Water (50% Dextrose In Water 50 Ml Syringe) 50 ml IVPUSH Q15M PRN PRN Reason: Hypoglycemia Glucagon (Glucagon,Human Recombinant 1 Mg Vial) 1 mg IM Q15M PRN PRN Reason: Hypoglycemia Octreotide Acetate 100 mcg/ (Sodium Chloride) 100 mls @ 50 mls/hr IV Q10H [facility] Last Admin: 02/06/21 06:18 Dose: 50 mls/hr Documented by: Piperacillin Sod/Tazobactam (Sod 3.375 gm/ Sodium Chloride) 100 mls @ 200 mls/hr IV Q6H [facility] Last Admin: 02/06/21 03:45 Dose: 200 mls/hr Documented by: Potassium Chloride/Dextrose/Sod Cl (D5 1/2 Ns W/ 10 Meq/L Kcl) 1,000 mls @ 100 mls/hr IV ASDIRECTED [facility] Influenza Virus Vaccine (Pharmacy To Dose - Influenza Vaccine) 1 each IM DAILY [facility] Insulin Glargine (Insulin Glarg,Human.Rec.Analog 100 Unit/Ml) 23 unit SUBCUT DAILY [facility] Last Admin: 02/05/21 14:56 Dose: 23 units Documented by: Insulin Human Lispro (Insulin Lispro 100 Units/Ml 3 Ml Vial) 12 unit SUBCUT TIDMEALS [facility] Last Admin: 02/06/21 08:25 Dose: 12 units Documented by: Levothyroxine Sodium (Levothyroxine 100 Mcg Tab) 200 mcg PO ACBREAKFAST [facility] Last Admin: 02/06/21 06:16 Dose: 200 mcg Documented by: Metoclopramide HCl (Metoclopramide 10 Mg/2 Ml Sdv) 10 mg IVPUSH Q8H PRN PRN Reason: Nausea/Vomiting Last Admin: 02/06/21 03:10 Dose: 10 mg Documented by: Ondansetron HCl (Ondansetron 4 Mg/2 Ml Sdv) 4 mg IVPUSH Q6HR PRN PRN Reason: Nausea/Vomiting Last Admin: 02/06/21 08:47 Dose: 4 mg Documented by: Pantoprazole Sodium (Pantoprazole 40 Mg Vial) 40 mg IVPUSH BEDTIME [facility] Promethazine HCl (Promethazine 25 Mg/Ml Sdv) 12.5 mg IM Q6H PRN PRN Reason: Nausea/Vomiting Last Admin: 02/06/21 04:20 Dose: 12.5 mg Documented by: Sertraline HCl (Sertraline 50 Mg Tab) 25 mg PO DAILY [facility] Last Admin: 02/06/21 08:26 Dose: 25 mg Documented by: Sodium Chloride (Sodium Chloride 0.9% 10 Ml Syringe) 10 ml FLUSH ASDIRECTED PRN PRN Reason: Keep Vein Open Discontinued Medications Dextrose/Water (50% Dextrose In Water 50 Ml Syringe) 50 ml IVPUSH Q15M PRN PRN Reason: Hypoglycemia Diphenhydramine HCl (Diphenhydramine 50 Mg/Ml Sdv) 12.5 mg IVPUSH ONETIME ONE Stop: 02/05/21 10:34 Last Admin: 02/05/21 10:39 Dose: 12.5 mg Documented by: Glucagon (Glucagon,Human Recombinant 1 Mg Vial) 1 mg IM Q15M PRN PRN Reason: Hypoglycemia Sodium Chloride (Normal Saline) 1,000 mls @ 999 mls/hr IV .BOLUS ONE Stop: 02/05/21 10:46 Last Admin: 02/05/21 10:04 Dose: 999 mls/hr Documented by: Pantoprazole Sodium 40 mg/ (Sodium Chloride) 100 mls @ 20 mls/hr IV .CONTINUOS MARCO Pantoprazole Sodium 40 mg/ (Sodium Chloride) 100 mls @ 20 mls/hr IV Q5H [facility] Last Admin: 02/06/21 06:18 Dose: 20 mls/hr Documented by: Insulin Regular in 0.9 % NACL (Myxredlin In Ns 100 Unit/100 Ml) 100 unit in 100 mls @ 7.629 mls/hr IV TITRATE MARCO; Protocol Last Titration: 02/05/21 14:32 Dose: 0 units/kg/hr, 0 mls/hr Documented by: Sodium Chloride (Normal Saline) 1,000 mls @ 999 mls/hr IV .BOLUS ONE Stop: 02/05/21 12:26 Last Infusion: 02/05/21 11:27 Dose: 400 mls/hr Documented by: Sodium Chloride (Normal Saline) 1,000 mls @ 999 mls/hr IV .BOLUS ONE Stop: 02/05/21 12:32 Last Admin: 02/05/21 11:49 Dose: Not Given Documented by: Potassium Chloride/Sodium Chloride (Normal Saline With 40 Meq Kcl) 1,000 mls @ 100 mls/hr IV ASDIRECTED [facility] Last Admin: 02/05/21 23:23 Dose: 100 mls/hr Documented by: Insulin Human Regular (Insulin Regular, Human 100 Units/Ml 3 Ml Vial) 7 unit IV ONETIME ONE Stop: 02/05/21 10:32 Last Admin: 02/05/21 10:39 Dose: 7 units Documented by: Metoclopramide HCl (Metoclopramide 10 Mg/2 Ml Sdv) 10 mg IVPUSH ONETIME ONE Stop: 02/05/21 10:33 Last Admin: 02/05/21 10:39 Dose: 10 mg Documented by: Octreotide Acetate (Octreotide 100 Mcg/Ml Sdv) 50 mcg IVPUSH ONETIME ONE Stop: 02/05/21 09:54 Last Admin: 02/05/21 10:05 Dose: 50 mcg Documented by: Ondansetron HCl (Ondansetron 4 Mg/2 Ml Sdv) 8 mg IV ONETIME ONE Stop: 02/05/21 09:47 Last Admin: 02/05/21 10:05 Dose: 8 mg Documented by: Ondansetron HCl (Ondansetron 4 Mg/2 Ml Sdv) Confirm Administered Dose 4 mg .ROUTE .STK-MED ONE Stop: 02/05/21 09:59 Last Admin: 02/05/21 10:08 Dose: Not Given Documented by: Pantoprazole Sodium (Pantoprazole 40 Mg Vial) 80 mg IVPUSH .BOLUS ONE Stop: 02/05/21 09:47 Last Admin: 02/05/21 10:04 Dose: 80 mg Documented by: Pantoprazole Sodium (Pantoprazole 40 Mg Vial) Confirm Administered Dose 40 mg .ROUTE .STK-MED ONE Stop: 02/05/21 14:02 Last Admin: 02/05/21 14:16 Dose: Not Given Documented by: Simethicone (Simethicone 80 Mg Tab.Chew) 160 mg PO ONETIME ONE Stop: 02/05/21 21:52 Last Admin: 02/05/21 22:27 Dose: 160 mg Documented by: Simethicone (Simethicone 80 Mg Tab.Chew) 80 mg PO ONETIME ONE Stop: 02/06/21 06:01 Last Admin: 02/06/21 06:16 Dose: 80 mg Documented by: Sodium Chloride (Sodium Chloride 0.9% 10 Ml Syringe) 10 ml FLUSH ASDIRECTED PRN PRN Reason: Keep Vein Open Last Admin: 02/05/21 10:05 Dose: 10 ml Documented by: Sodium Chloride (Sodium Chloride 0.9% 10 Ml Syringe) 10 ml FLUSH ASDIRECTED PRN PRN Reason: Keep Vein Open Last Admin: 02/05/21 10:06 Dose: 10 ml Documented by: - Exam Quality Assessment: No: Supplemental Oxygen General: Alert, Oriented HEENT: EOMI Lungs: Clear to Auscultation Cardiovascular: Regular Rate, Regular Rhythm GI/Abdominal Exam: Soft, Non-Tender Extremities: Normal Inspection Skin: Warm, Dry Neurological: No New Focal Deficit Psy/Mental Status: Alert, Normal Affect - Patient Data Lab Results Last 24 hrs: Laboratory Results - last 24 hr 02/05/21 02/05/21 02/05/21 Range/Units 09:42 09:43 09:50 WBC (5.0-10.0) 10^3/uL RBC (4.6-6.2) 10^6/uL Hgb (14.0-18.0) g/dL Hct (40.0-54.0) % MCV (80-100) fL MCH (27.0-34.0) pg MCHC (33.0-35.0) g/dL Plt Count (150-450) 10^3/uL Neut % (Auto) (42.2-75.2) % Lymph % (Auto) (20.5-50.1) % [place] % (Auto) (2-8) % Eos % (Auto) (1.0-3.0) % Baso % (Auto) (0.0-1.0) % PT (9.0-12.0) SEC INR (0.9-1.2) APTT (22.0-34.0) SEC Sodium 141 D (136-145) mmol/L Potassium 3.8 D (3.5-5.1) mmol/L Chloride 98 (98-107) mmol/L Carbon Dioxide 21 (21-32) mmol/L Anion Gap 25.8 H (7-13) mEq/L BUN 48 H (7-18) mg/dL Creatinine 2.81 H (0.70-1.30) mg/dL Est Cr Clr Drug Dosing TNP Estimated GFR (MDRD) 24 BUN/Creatinine Ratio 17.1 (No establ ref range) Glucose 460 H* (70-99) mg/dL POC Glucose (70-99) mg/dL Lactic Acid (0.4-2.0) mmol/L Calcium 9.7 (8.5-10.1) mg/dL Phosphorus 3.7 (2.6-4.7) mg/dL Magnesium 2.5 H (1.8-2.4) mg/dL Total Bilirubin 1.2 H (0.2-1.0) mg/dL AST 18 (15-37) U/L ALT 21 (16-63) U/L Alkaline Phosphatase 135 H (46-116) U/L Troponin I High Sens 7 (<=76) pg/mL Total Protein 8.2 (6.4-8.2) g/dL Albumin 3.9 (3.4-5.0) g/dL Globulin 4.3 Albumin/Globulin Ratio 0.9 Amylase 61 (25-115) U/L Lipase 42 L (73-393) U/L Urine Color Yellow (YELLOW) Urine Appearance Slightly cloudy (CLEAR) Urine pH 5.0 (5.0-9.0) Ur Specific [place] 1.025 (1.005-1.030) Urine Protein 30 H (NEGATIVE) Urine Glucose (UA) 500 H (NEGATIVE) Urine Ketones 15 H (NEGATIVE) Urine Occult Blood Negative (NEGATIVE) Urine Nitrite Negative (NEGATIVE) Urine Bilirubin Small H (NEGATIVE) Urine Urobilinogen 0.2 (0.2-1.0) mg/dL Ur Leukocyte Esterase Negative (NEGATIVE) U Hyaline Cast (Auto) Moderate Urine RBC 0-5 (0-5) /HPF Urine WBC 0-5 (0-5/HPF) /HPF Ur Epithelial Cells Few (NOT SEEN) /HPF Amorphous Sediment Rare (NOT SEEN) /HPF Urine Bacteria Rare (0-FEW/HPF) /HPF Urine Mucus Few H (NOT SEEN) /LPF Urine Other See note Urine Opiates Screen Negative (NEGATIVE) Ur Oxycodone Screen Negative (NEGATIVE) Urine Methadone Screen Negative (NEGATIVE) Ur Barbiturates Screen Negative (NEGATIVE) U Tricyclic Antidepress Negative (NEGATIVE) Ur Phencyclidine Scrn Negative (NEGATIVE) Ur Amphetamine Screen Negative (NEGATIVE) U Methamphetamines Scrn Negative (NEGATIVE) Urine MDMA Screen Negative (NEGATIVE) U Benzodiazepines Scrn Negative (NEGATIVE) Urine Cocaine Screen Negative (NEGATIVE) U Marijuana (THC) Screen Negative (NEGATIVE) Ethyl Alcohol < 3 (0) mg/dL Ketones Small-20 mg/dl SARS-CoV-2 RNA (NAHED) (NEGATIVE) Blood Type Gel Antibody Screen 02/05/21 02/05/21 02/05/21 Range/Units 09:50 09:50 09:53 WBC 20.2 H (5.0-10.0) 10^3/uL RBC 4.34 L (4.6-6.2) 10^6/uL Hgb 12.7 L (14.0-18.0) g/dL Hct 38.3 L (40.0-54.0) % MCV 88.2 (80-100) fL MCH 29.3 (27.0-34.0) pg MCHC 33.2 (33.0-35.0) g/dL Plt Count 378 D (150-450) 10^3/uL Neut % (Auto) 93.3 H (42.2-75.2) % Lymph % (Auto) 4.2 L (20.5-50.1) % [place] % (Auto) 2.5 (2-8) % Eos % (Auto) 0.0 L (1.0-3.0) % Baso % (Auto) 0.0 (0.0-1.0) % PT 10.4 (9.0-12.0) SEC INR 1.0 (0.9-1.2) APTT 21.3 L (22.0-34.0) SEC Sodium (136-145) mmol/L Potassium (3.5-5.1) mmol/L Chloride (98-107) mmol/L Carbon Dioxide (21-32) mmol/L Anion Gap (7-13) mEq/L BUN (7-18) mg/dL Creatinine (0.70-1.30) mg/dL Est Cr Clr Drug Dosing Estimated GFR (MDRD) BUN/Creatinine Ratio (No establ ref range) Glucose (70-99) mg/dL POC Glucose (70-99) mg/dL Lactic Acid 4.9 H* (0.4-2.0) mmol/L Calcium (8.5-10.1) mg/dL Phosphorus (2.6-4.7) mg/dL Magnesium (1.8-2.4) mg/dL Total Bilirubin (0.2-1.0) mg/dL AST (15-37) U/L ALT (16-63) U/L Alkaline Phosphatase (46-116) U/L Troponin I High Sens (<=76) pg/mL Total Protein (6.4-8.2) g/dL Albumin (3.4-5.0) g/dL Globulin Albumin/Globulin Ratio Amylase (25-115) U/L Lipase (73-393) U/L Urine Color (YELLOW) Urine Appearance (CLEAR) Urine pH (5.0-9.0) Ur Specific [place] (1.005-1.030) Urine Protein (NEGATIVE) Urine Glucose (UA) (NEGATIVE) Urine Ketones (NEGATIVE) Urine Occult Blood (NEGATIVE) Urine Nitrite (NEGATIVE) Urine Bilirubin (NEGATIVE) Urine Urobilinogen (0.2-1.0) mg/dL Ur Leukocyte Esterase (NEGATIVE) U Hyaline Cast (Auto) Urine RBC (0-5) /HPF Urine WBC (0-5/HPF) /HPF Ur Epithelial Cells (NOT SEEN) /HPF Amorphous Sediment (NOT SEEN) /HPF Urine Bacteria (0-FEW/HPF) /HPF Urine Mucus (NOT SEEN) /LPF Urine Other Urine Opiates Screen (NEGATIVE) Ur Oxycodone Screen (NEGATIVE) Urine Methadone Screen (NEGATIVE) Ur Barbiturates Screen (NEGATIVE) U Tricyclic Antidepress (NEGATIVE) Ur Phencyclidine Scrn (NEGATIVE) Ur Amphetamine Screen (NEGATIVE) U Methamphetamines Scrn (NEGATIVE) Urine MDMA Screen (NEGATIVE) U Benzodiazepines Scrn (NEGATIVE) Urine Cocaine Screen (NEGATIVE) U Marijuana (THC) Screen (NEGATIVE) Ethyl Alcohol (0) mg/dL Ketones SARS-CoV-2 RNA (NAHED) (NEGATIVE) Blood Type Gel Antibody Screen 02/05/21 02/05/21 02/05/21 Range/Units 11:11 11:39 14:21 WBC (5.0-10.0) 10^3/uL RBC (4.6-6.2) 10^6/uL Hgb (14.0-18.0) g/dL Hct (40.0-54.0) % MCV (80-100) fL MCH (27.0-34.0) pg MCHC (33.0-35.0) g/dL Plt Count (150-450) 10^3/uL Neut % (Auto) (42.2-75.2) % Lymph % (Auto) (20.5-50.1) % [place] % (Auto) (2-8) % Eos % (Auto) (1.0-3.0) % Baso % (Auto) (0.0-1.0) % PT (9.0-12.0) SEC INR (0.9-1.2) APTT (22.0-34.0) SEC Sodium (136-145) mmol/L Potassium (3.5-5.1) mmol/L Chloride (98-107) mmol/L Carbon Dioxide (21-32) mmol/L Anion Gap (7-13) mEq/L BUN (7-18) mg/dL Creatinine (0.70-1.30) mg/dL Est Cr Clr Drug Dosing Estimated GFR (MDRD) BUN/Creatinine Ratio (No establ ref range) Glucose (70-99) mg/dL POC Glucose 319 H 128 H (70-99) mg/dL Lactic Acid (0.4-2.0) mmol/L Calcium (8.5-10.1) mg/dL Phosphorus (2.6-4.7) mg/dL Magnesium (1.8-2.4) mg/dL Total Bilirubin (0.2-1.0) mg/dL AST (15-37) U/L ALT (16-63) U/L Alkaline Phosphatase (46-116) U/L Troponin I High Sens (<=76) pg/mL Total Protein (6.4-8.2) g/dL Albumin (3.4-5.0) g/dL Globulin Albumin/Globulin Ratio Amylase (25-115) U/L Lipase (73-393) U/L Urine Color (YELLOW) Urine Appearance (CLEAR) Urine pH (5.0-9.0) Ur Specific [place] (1.005-1.030) Urine Protein (NEGATIVE) Urine Glucose (UA) (NEGATIVE) Urine Ketones (NEGATIVE) Urine Occult Blood (NEGATIVE) Urine Nitrite (NEGATIVE) Urine Bilirubin (NEGATIVE) Urine Urobilinogen (0.2-1.0) mg/dL Ur Leukocyte Esterase (NEGATIVE) U Hyaline Cast (Auto) Urine RBC (0-5) /HPF Urine WBC (0-5/HPF) /HPF Ur Epithelial Cells (NOT SEEN) /HPF Amorphous Sediment (NOT SEEN) /HPF Urine Bacteria (0-FEW/HPF) /HPF Urine Mucus (NOT SEEN) /LPF Urine Other Urine Opiates Screen (NEGATIVE) Ur Oxycodone Screen (NEGATIVE) Urine Methadone Screen (NEGATIVE) Ur Barbiturates Screen (NEGATIVE) U Tricyclic Antidepress (NEGATIVE) Ur Phencyclidine Scrn (NEGATIVE) Ur Amphetamine Screen (NEGATIVE) U Methamphetamines Scrn (NEGATIVE) Urine MDMA Screen (NEGATIVE) U Benzodiazepines Scrn (NEGATIVE) Urine Cocaine Screen (NEGATIVE) U Marijuana (THC) Screen (NEGATIVE) Ethyl Alcohol (0) mg/dL Ketones SARS-CoV-2 RNA (NAHED) Negative (NEGATIVE) Blood Type Gel Antibody Screen 02/05/21 02/05/21 02/05/21 Range/Units 14:33 14:33 14:33 WBC 22.1 H (5.0-10.0) 10^3/uL RBC 4.33 L (4.6-6.2) 10^6/uL Hgb 12.7 L (14.0-18.0) g/dL Hct 37.9 L (40.0-54.0) % MCV 87.5 (80-100) fL MCH 29.3 (27.0-34.0) pg MCHC 33.5 (33.0-35.0) g/dL Plt Count 316 (150-450) 10^3/uL Neut % (Auto) (42.2-75.2) % Lymph % (Auto) (20.5-50.1) % [place] % (Auto) (2-8) % Eos % (Auto) (1.0-3.0) % Baso % (Auto) (0.0-1.0) % PT (9.0-12.0) SEC INR (0.9-1.2) APTT (22.0-34.0) SEC Sodium 146 H (136-145) mmol/L Potassium 3.7 (3.5-5.1) mmol/L Chloride 108 H (98-107) mmol/L Carbon Dioxide 27 (21-32) mmol/L Anion Gap 14.7 H (7-13) mEq/L BUN 48 H (7-18) mg/dL Creatinine 2.36 H (0.70-1.30) mg/dL Est Cr Clr Drug Dosing 44.34 Estimated GFR (MDRD) 30 BUN/Creatinine Ratio (No establ ref range) Glucose 145 H (70-99) mg/dL POC Glucose (70-99) mg/dL Lactic Acid 2.3 H* (0.4-2.0) mmol/L Calcium 9.4 (8.5-10.1) mg/dL Phosphorus (2.6-4.7) mg/dL Magnesium (1.8-2.4) mg/dL Total Bilirubin (0.2-1.0) mg/dL AST (15-37) U/L ALT (16-63) U/L Alkaline Phosphatase (46-116) U/L Troponin I High Sens (<=76) pg/mL Total Protein (6.4-8.2) g/dL Albumin (3.4-5.0) g/dL Globulin Albumin/Globulin Ratio Amylase (25-115) U/L Lipase (73-393) U/L Urine Color (YELLOW) Urine Appearance (CLEAR) Urine pH (5.0-9.0) Ur Specific [place] (1.005-1.030) Urine Protein (NEGATIVE) Urine Glucose (UA) (NEGATIVE) Urine Ketones (NEGATIVE) Urine Occult Blood (NEGATIVE) Urine Nitrite (NEGATIVE) Urine Bilirubin (NEGATIVE) Urine Urobilinogen (0.2-1.0) mg/dL Ur Leukocyte Esterase (NEGATIVE) U Hyaline Cast (Auto) Urine RBC (0-5) /HPF Urine WBC (0-5/HPF) /HPF Ur Epithelial Cells (NOT SEEN) /HPF Amorphous Sediment (NOT SEEN) /HPF Urine Bacteria (0-FEW/HPF) /HPF Urine Mucus (NOT SEEN) /LPF Urine Other Urine Opiates Screen (NEGATIVE) Ur Oxycodone Screen (NEGATIVE) Urine Methadone Screen (NEGATIVE) Ur Barbiturates Screen (NEGATIVE) U Tricyclic Antidepress (NEGATIVE) Ur Phencyclidine Scrn (NEGATIVE) Ur Amphetamine Screen (NEGATIVE) U Methamphetamines Scrn (NEGATIVE) Urine MDMA Screen (NEGATIVE) U Benzodiazepines Scrn (NEGATIVE) Urine Cocaine Screen (NEGATIVE) U Marijuana (THC) Screen (NEGATIVE) Ethyl Alcohol (0) mg/dL Ketones SARS-CoV-2 RNA (NAHED) (NEGATIVE) Blood Type Gel Antibody Screen 02/05/21 02/05/21 02/05/21 Range/Units 14:33 15:29 16:43 WBC (5.0-10.0) 10^3/uL RBC (4.6-6.2) 10^6/uL Hgb (14.0-18.0) g/dL Hct (40.0-54.0) % MCV (80-100) fL MCH (27.0-34.0) pg MCHC (33.0-35.0) g/dL Plt Count (150-450) 10^3/uL Neut % (Auto) (42.2-75.2) % Lymph % (Auto) (20.5-50.1) % [place] % (Auto) (2-8) % Eos % (Auto) (1.0-3.0) % Baso % (Auto) (0.0-1.0) % PT (9.0-12.0) SEC INR (0.9-1.2) APTT (22.0-34.0) SEC Sodium (136-145) mmol/L Potassium (3.5-5.1) mmol/L Chloride (98-107) mmol/L Carbon Dioxide (21-32) mmol/L Anion Gap (7-13) mEq/L BUN (7-18) mg/dL Creatinine (0.70-1.30) mg/dL Est Cr Clr Drug Dosing Estimated GFR (MDRD) BUN/Creatinine Ratio (No establ ref range) Glucose (70-99) mg/dL POC Glucose 92 96 (70-99) mg/dL Lactic Acid (0.4-2.0) mmol/L Calcium (8.5-10.1) mg/dL Phosphorus (2.6-4.7) mg/dL Magnesium (1.8-2.4) mg/dL Total Bilirubin (0.2-1.0) mg/dL AST (15-37) U/L ALT (16-63) U/L Alkaline Phosphatase (46-116) U/L Troponin I High Sens (<=76) pg/mL Total Protein (6.4-8.2) g/dL Albumin (3.4-5.0) g/dL Globulin Albumin/Globulin Ratio Amylase (25-115) U/L Lipase (73-393) U/L Urine Color (YELLOW) Urine Appearance (CLEAR) Urine pH (5.0-9.0) Ur Specific [place] (1.005-1.030) Urine Protein (NEGATIVE) Urine Glucose (UA) (NEGATIVE) Urine Ketones (NEGATIVE) Urine Occult Blood (NEGATIVE) Urine Nitrite (NEGATIVE) Urine Bilirubin (NEGATIVE) Urine Urobilinogen (0.2-1.0) mg/dL Ur Leukocyte Esterase (NEGATIVE) U Hyaline Cast (Auto) Urine RBC (0-5) /HPF Urine WBC (0-5/HPF) /HPF Ur Epithelial Cells (NOT SEEN) /HPF Amorphous Sediment (NOT SEEN) /HPF Urine Bacteria (0-FEW/HPF) /HPF Urine Mucus (NOT SEEN) /LPF Urine Other Urine Opiates Screen (NEGATIVE) Ur Oxycodone Screen (NEGATIVE) Urine Methadone Screen (NEGATIVE) Ur Barbiturates Screen (NEGATIVE) U Tricyclic Antidepress (NEGATIVE) Ur Phencyclidine Scrn (NEGATIVE) Ur Amphetamine Screen (NEGATIVE) U Methamphetamines Scrn (NEGATIVE) Urine MDMA Screen (NEGATIVE) U Benzodiazepines Scrn (NEGATIVE) Urine Cocaine Screen (NEGATIVE) U Marijuana (THC) Screen (NEGATIVE) Ethyl Alcohol (0) mg/dL Ketones SARS-CoV-2 RNA (NAHED) (NEGATIVE) Blood Type O POSITIVE Gel Antibody Screen Negative 02/05/21 02/06/21 02/06/21 Range/Units 22:01 05:50 05:50 WBC 15.7 H (5.0-10.0) 10^3/uL RBC 3.64 L (4.6-6.2) 10^6/uL Hgb 10.7 L D (14.0-18.0) g/dL Hct 32.7 L (40.0-54.0) % MCV 89.8 (80-100) fL MCH 29.4 (27.0-34.0) pg MCHC 32.7 L (33.0-35.0) g/dL Plt Count 276 (150-450) 10^3/uL Neut % (Auto) (42.2-75.2) % Lymph % (Auto) (20.5-50.1) % [place] % (Auto) (2-8) % Eos % (Auto) (1.0-3.0) % Baso % (Auto) (0.0-1.0) % PT (9.0-12.0) SEC INR (0.9-1.2) APTT (22.0-34.0) SEC Sodium 148 H (136-145) mmol/L Potassium 4.8 (3.5-5.1) mmol/L Chloride 111 H (98-107) mmol/L Carbon Dioxide 24 (21-32) mmol/L Anion Gap 17.8 H (7-13) mEq/L BUN 43 H (7-18) mg/dL Creatinine 2.30 H (0.70-1.30) mg/dL Est Cr Clr Drug Dosing 45.50 Estimated GFR (MDRD) 31 BUN/Creatinine Ratio (No establ ref range) Glucose 184 H (70-99) mg/dL POC Glucose 106 H (70-99) mg/dL Lactic Acid (0.4-2.0) mmol/L Calcium 8.9 (8.5-10.1) mg/dL Phosphorus (2.6-4.7) mg/dL Magnesium (1.8-2.4) mg/dL Total Bilirubin (0.2-1.0) mg/dL AST (15-37) U/L ALT (16-63) U/L Alkaline Phosphatase (46-116) U/L Troponin I High Sens (<=76) pg/mL Total Protein (6.4-8.2) g/dL Albumin (3.4-5.0) g/dL Globulin Albumin/Globulin Ratio Amylase (25-115) U/L Lipase (73-393) U/L Urine Color (YELLOW) Urine Appearance (CLEAR) Urine pH (5.0-9.0) Ur Specific [place] (1.005-1.030) Urine Protein (NEGATIVE) Urine Glucose (UA) (NEGATIVE) Urine Ketones (NEGATIVE) Urine Occult Blood (NEGATIVE) Urine Nitrite (NEGATIVE) Urine Bilirubin (NEGATIVE) Urine Urobilinogen (0.2-1.0) mg/dL Ur Leukocyte Esterase (NEGATIVE) U Hyaline Cast (Auto) Urine RBC (0-5) /HPF Urine WBC (0-5/HPF) /HPF Ur Epithelial Cells (NOT SEEN) /HPF Amorphous Sediment (NOT SEEN) /HPF Urine Bacteria (0-FEW/HPF) /HPF Urine Mucus (NOT SEEN) /LPF Urine Other Urine Opiates Screen (NEGATIVE) Ur Oxycodone Screen (NEGATIVE) Urine Methadone Screen (NEGATIVE) Ur Barbiturates Screen (NEGATIVE) U Tricyclic Antidepress (NEGATIVE) Ur Phencyclidine Scrn (NEGATIVE) Ur Amphetamine Screen (NEGATIVE) U Methamphetamines Scrn (NEGATIVE) Urine MDMA Screen (NEGATIVE) U Benzodiazepines Scrn (NEGATIVE) Urine Cocaine Screen (NEGATIVE) U Marijuana (THC) Screen (NEGATIVE) Ethyl Alcohol (0) mg/dL Ketones SARS-CoV-2 RNA (NAHED) (NEGATIVE) Blood Type Gel Antibody Screen 02/06/21 Range/Units 07:48 WBC (5.0-10.0) 10^3/uL RBC (4.6-6.2) 10^6/uL Hgb (14.0-18.0) g/dL Hct (40.0-54.0) % MCV (80-100) fL MCH (27.0-34.0) pg MCHC (33.0-35.0) g/dL Plt Count (150-450) 10^3/uL Neut % (Auto) (42.2-75.2) % Lymph % (Auto) (20.5-50.1) % [place] % (Auto) (2-8) % Eos % (Auto) (1.0-3.0) % Baso % (Auto) (0.0-1.0) % PT (9.0-12.0) SEC INR (0.9-1.2) APTT (22.0-34.0) SEC Sodium (136-145) mmol/L Potassium (3.5-5.1) mmol/L Chloride (98-107) mmol/L Carbon Dioxide (21-32) mmol/L Anion Gap (7-13) mEq/L BUN (7-18) mg/dL Creatinine (0.70-1.30) mg/dL Est Cr Clr Drug Dosing Estimated GFR (MDRD) BUN/Creatinine Ratio (No establ ref range) Glucose (70-99) mg/dL POC Glucose 262 H (70-99) mg/dL Lactic Acid (0.4-2.0) mmol/L Calcium (8.5-10.1) mg/dL Phosphorus (2.6-4.7) mg/dL Magnesium (1.8-2.4) mg/dL Total Bilirubin (0.2-1.0) mg/dL AST (15-37) U/L ALT (16-63) U/L Alkaline Phosphatase (46-116) U/L Troponin I High Sens (<=76) pg/mL Total Protein (6.4-8.2) g/dL Albumin (3.4-5.0) g/dL Globulin Albumin/Globulin Ratio Amylase (25-115) U/L Lipase (73-393) U/L Urine Color (YELLOW) Urine Appearance (CLEAR) Urine pH (5.0-9.0) Ur Specific [place] (1.005-1.030) Urine Protein (NEGATIVE) Urine Glucose (UA) (NEGATIVE) Urine Ketones (NEGATIVE) Urine Occult Blood (NEGATIVE) Urine Nitrite (NEGATIVE) Urine Bilirubin (NEGATIVE) Urine Urobilinogen (0.2-1.0) mg/dL Ur Leukocyte Esterase (NEGATIVE) U Hyaline Cast (Auto) Urine RBC (0-5) /HPF Urine WBC (0-5/HPF) /HPF Ur Epithelial Cells (NOT SEEN) /HPF Amorphous Sediment (NOT SEEN) /HPF Urine Bacteria (0-FEW/HPF) /HPF Urine Mucus (NOT SEEN) /LPF Urine Other Urine Opiates Screen (NEGATIVE) Ur Oxycodone Screen (NEGATIVE) Urine Methadone Screen (NEGATIVE) Ur Barbiturates Screen (NEGATIVE) U Tricyclic Antidepress (NEGATIVE) Ur Phencyclidine Scrn (NEGATIVE) Ur Amphetamine Screen (NEGATIVE) U Methamphetamines Scrn (NEGATIVE) Urine MDMA Screen (NEGATIVE) U Benzodiazepines Scrn (NEGATIVE) Urine Cocaine Screen (NEGATIVE) U Marijuana (THC) Screen (NEGATIVE) Ethyl Alcohol (0) mg/dL Ketones SARS-CoV-2 RNA (NAHED) (NEGATIVE) Blood Type Gel Antibody Screen Result Diagrams: 02/06/21 05:50 02/06/21 05:50 [place] Results Last 24 hrs: Microbiology 02/05/21 09:48 Gastric Occult Blood - Final Gastric Fluid 02/05/21 09:50 Anaerobic Blood Culture - Final Blood - Venous - Iv Start Sepsis Event Note - Evaluation Sepsis Screening Result: Possible Sepsis Risk - Focused Exam Vital Signs: Vital Signs Temp Pulse Resp BP Pulse Ox 02/06/21 08:00 100.4 F 90 20 194/97 H 99 02/06/21 04:00 99.8 F 93 20 170/85 H 98 02/06/21 00:00 101.4 F H 94 20 172/92 H 98 - Problem List Review Problem List Initiated/Reviewed/Updated: Yes - My Orders Last 24 Hours: My Active Orders 02/05/21 13:41 Height and Weight [RC] DAILY Oxygen Therapy [RC] PRN Up ad Liliana [RC] ASDIRECTED VTE/DVT Education [RC] PER UNIT ROUTINE Vital Signs [RC] Q4H Acetaminophen [TylenoL] 650 mg PO Q4H PRN Resuscitation Status Routine 02/05/21 13:42 Cardiac Monitoring [RC] 08,20 Intake and Output [RC] 06,14,22 02/05/21 14:35 Blood Glucose Check, Bedside [RC] WITHMEALSANDBED Dextrose 50% in Water 50 ml IVPUSH Q15M PRN Glucagon,Human Recombinant [GlucaGen] 1 mg IM Q15M PRN 02/05/21 14:38 Vaccine to be Administered/Admin Charge [RC] ASDIRECTED 02/05/21 14:45 Insulin Glarg,Human.Rec.Analog [LantUS] 23 unit SUBCUT DAILY 02/05/21 14:48 Sodium Chloride 0.9% [Saline Flush] 10 ml FLUSH ASDIRECTED PRN 02/05/21 15:11 Ondansetron [Zofran] 4 mg IVPUSH Q6HR PRN 02/05/21 17:00 Insulin Lispro [HumaLOG] 12 unit SUBCUT TIDMEALS 02/05/21 Dinner Clear Liquid Diet [DIET] 02/05/21 18:10 Metoclopramide [Reglan] 10 mg IVPUSH Q8H PRN 02/05/21 18:57 Admission Status [Patient Status] [ADT] Routine 02/05/21 21:41 Promethazine [Phenergan] 12.5 mg IM Q6H PRN 02/05/21 22:00 Piperacillin/Tazobactam [Zosyn] 3.375 gm Sodium Chloride 0.9% [Normal Saline] 100 ml IV Q6H 02/06/21 06:00 Levothyroxine [Synthroid] 200 mcg PO ACBREAKFAST 02/06/21 08:00 Abdomen Comp [US] Routine 02/06/21 09:00 Pharmacy to Dose - InFluenza V [Pharmacy to Dose - InFluenza Vaccine] 1 each IM DAILY Sertraline [Zoloft] 25 mg PO DAILY 02/06/21 09:15 amLODIPine [Norvasc] 5 mg PO DAILY 02/06/21 09:16 CULTURE URINE [RM] Routine 02/06/21 09:30 D5 1/2 NS w/ 10 mEq/L KCl 1,000 ml IV ASDIRECTED 02/06/21 21:00 Pantoprazole [ProTONIX IV] 40 mg IVPUSH BEDTIME - Plan Plan:: 45 y/o M c/o vomiting blood and hyperglycemia since last night. Pt has hx of GI bleed a month ago and he was transferred out. He reports when he was transferred no GI consult was performed. About 3 am this morning the pt began coffee ground emesis. He reports decreased fluid intake. Type I diabetes and has trouble controlling his blood sugar. Denies fever, cough, chills, cp, drugs, etoh. Upper GI bleeding ER was not able to locate a bed for higher level of care in the state. H/H: stable. mild drop prob diluational. Pt had EGD done on July 27/2021 : Gastroparesis diverticulum and esophageal moniliasis. CT : GB sludge. Protonix drip to IVP , DC Octreotide. No indicatioin for transfusing at present. Sepsis/ Leukocytosis: Source is not clear. Abdomen exam is benign. Awaiting US report. B cult and Urine cult sent. Continue with Zosyn. Hyperglycemia and early DKA: under control Continue with Lantus and insulin SQ hyperchloremia : change to 1/2 NS DVT : low risk . No heparin due to bleeding. HTN and hyperlipemia: resume home medications. Full code Left massage with [facility] for possible transfer> pt agrees. time spent 30 min
[2021-02-06] MEDS: D5 1/2 NS w/ 10 mEq/L KCl 1,000 ML IV SCH ×2 (09:41→20:20)
[2021-02-06] MEDS: amLODIPine 5 MG Tab PO SCH (09:46)
[2021-02-06] MEDS: Insulin Glarg,Human.Rec.Analog 100 Unit/ML SUBCUT SCH (09:49)
--- NOTE | 2021-02-06 12:23 | US ---
EXAMINATION: Abdomen Comp SEX: Male AGE: 45 years CLINICAL HISTORY: 45-year-old diabetic male with Ketoacidosis, nausea, vomiting and gastrointestinal bleed. Interpretation: Distended gallbladder (RUQ) right upper quadrant with suggestion of tiny dependent layer of intraluminal "sludge". No abnormal wall thickening, fixed mucosal wall polyp, or discrete dependent "shadowing" echogenic gallstones. No pericystic fluid. Homogeneous normal sono density the liver. No discrete intrahepatic mass or intra/extrahepatic duct dilatation. Note: Apparent small pleural effusion right lung base. Normal caliber upper abdominal aorta. Kidneys unremarkable. No obvious mass or signs of obstructive uropathy. Pancreas unremarkable i.e. no edema, mass, pseudocyst, phlegmon or major pancreatic duct dilatation. No ascites. CONCLUSION: Distended (fasting?) gallbladder with minimal "sludge". Small right pleural effusion.
--- NOTE | 2021-02-06 13:18 | PCM.SN.2 ---
- Free Text/Narrative Note: GB US showed possible sludge but no definite inflamed GB. Pt reports that he is feeling better now: no more vomiting , in fact he was able to keep liquids down. T 100.5 noted. Cult are neg so far. Pt would prefer to stay at [facility] since he is getting better. His Stacey was updated as per his request and she agrees with the plan. Time Documentation
[2021-02-06 16:09] LABS: O2 DELIVERY DEVICE ROOM AIR; PCO2 ARTERIAL 36 mmHg (35-45)
[2021-02-06 16:10] LABS: BASE EXCESS ARTERIAL -5 mmol/L ((-2)-(+3)); BICARBONATE,ARTERIAL 19.4 mmol/L (22-26); O2 SATURATION ARTERIAL 94 % (95-100); PO2 ARTERIAL 73 mmHg (70-100)
[2021-02-06 16:13] LABS: ALLEN TEST POSITIVE
--- NOTE | 2021-02-06 16:47 | PCM.SN.2 ---
- Free Text/Narrative Note: [facility] called that [facility] may have a bed>> discussed with pt and he declined to be transferred to [facility] for now. Time Documentation
[2021-02-06] MEDS: Sodium Chloride 0.9% 10 ML Syringe FLUSH PRN ×2 (20:43→20:49)
[2021-02-06] MEDS ORDERED: Pantoprazole 40 MG Vial IVPUSH SCH (21:00)
[2021-02-07] MEDS ORDERED: Piperacillin/Tazobactam 3.375 GM in Sodium Chloride 0.9% 100 ML IV ONE (03:40)
[2021-02-07] MEDS ORDERED: Levothyroxine 100 MCG Tab PO ONE (04:53)
[2021-02-07] MEDS: Piperacillin/Tazobactam 3.375 GM in Sodium Chloride 0.9% 100 ML IV SCH ×2 (06:42→11:12)
[2021-02-07] MEDS: Levothyroxine 100 MCG Tab PO SCH (06:42)
[2021-02-07] MEDS: D5 1/2 NS w/ 10 mEq/L KCl 1,000 ML IV SCH (07:32)
[2021-02-07 07:50] LABS: ANION GAP 10.4 mEq/L (7-13)
[2021-02-07 08:42] VITALS: PULSE 80
[2021-02-07] MEDS: Insulin Lispro 100 Units/ML 3 ML Vial SUBCUT SCH ×2 (09:18→13:17)
[2021-02-07] MEDS: Insulin Glarg,Human.Rec.Analog 100 Unit/ML SUBCUT SCH (09:18)
[2021-02-07] MEDS: Sertraline 50 MG Tab PO SCH (09:19)
[2021-02-07] MEDS: amLODIPine 5 MG Tab PO SCH (09:19)
[2021-02-07 09:23] VITALS: BP 150/82
--- NOTE | 2021-02-07 09:54 | PCM.DCSUM1 ---
Discharge Summary - Hospital Course Free Text/Narrative:: 45 y/o M c/o vomiting blood and hyperglycemia since last night. Pt has hx of GI bleed a month ago and he was transferred out. He reports when he was transferred no GI consult was performed. About 3 am the morning of amdission the pt began coffee ground emesis. He reports decreased fluid intake. Type I diabetes and has trouble controlling his blood sugar. Denies fever, cough, chills, cp, drugs, etoh. During his stay he was treated for the following: Upper GI bleeding: ER was not able to locate a bed [place] higher level of care [place]. Pt was treated initial with Protonix and octreotide drips. H/H: stable. mild drop prob dilational. He had several vomiting episodes with coffee ground vomiting then his vomiting stopped and he had no bright blood in stool Pt had EGD done on July 27/2021 : Gastroparesis diverticulum and esophageal moniliasis. CT : GB sludge. Protonix drip changed to IVP , Octreotide was DCed. Bed became available for transfusing last night but pt was already feeling better and he declined to be transferred. P Sepsis/ Leukocytosis: Source is not clear. Abdomen exam is benign. CXR, urine and blood cults remained neg. GB US: showed some sludge? but no definite cholecystitis. B cult and Urine cult sent. Pt was treated with Zosyn. His fever subsided and his WBC trended down. Hyperglycemia and early DKA: under control. Continue with Lantus and insulin SQ HTN and hyperlipemia: Hold HCTZ and Losartan till seen by PCP. Pt was offered to be transferred this morning but he declined. " I feel too good to be be transferred" " I really need to go home". Pt was advised to Take his omeprazole BID and Reglan TID. He was provided with Augmentin BID for one week. To have short follow up with his PCP along with labs. - Discharge Data Discharge Date: 02/07/21 Discharge Disposition: Home, Self-Care 01 Condition: Good - Referral to Home Health Primary Care Physician: PCP None - Patient Instructions Diet: Diabetic Diet Fluid Restriction: 2000 mL Activity: As Tolerated Notify Provider of: Fever, Increased Pain, Swelling and Redness, Drainage, Nausea and/or Vomiting Other/Special Instructions: Hold Losartan and HCTZ till seen by your doctor. See your doctor in 2 days. Return to ER if not better or any change. needs labs CBC , BMP through your docotor - Discharge Plan *PRESCRIPTION DRUG MONITORING PROGRAM REVIEWED*: Not Applicable *COPY OF PRESCRIPTION DRUG MONITORING REPORT IN PATIENT FRANCES: Not Applicable Prescriptions/Med Rec: Amoxicillin/Clavulanate K [Augmentin 875-125 MG] 1 tab PO Q12HR 7 Days #14 tablet Omeprazole 20 mg PO BID 30 Days #60 Home Medications: Home Meds Insulin Aspart [NovoLOG] See Protocol SQ TIDMEALS 08/02/15 [History] Insulin Glarg,Human.Rec.Analog [Lantus] 40 units SQ BEDTIME 08/02/15 [History] Levothyroxine 200 mcg PO ACBREAKFAST 07/17/20 [History] Timolol Maleate [Timoptic] 1 drop EYEBOTH BID 07/26/20 [History] Metoclopramide HCl 10 mg PO TIDMEALS 02/05/21 [History] Sertraline HCl 25 mg PO DAILY 02/05/21 [History] amLODIPine Besylate [Amlodipine Besylate] 5 mg PO DAILY 02/05/21 [History] Amoxicillin/Clavulanate K [Augmentin 875-125 MG] 1 tab PO Q12HR 7 Days #14 tablet 02/07/21 [Rx] Insulin Glarg,Human.Rec.Analog [Lantus] 23 unit SUBCUT DAILY ml 02/07/21 [Rx] Insulin Lispro [HumaLOG] 12 unit SUBCUT TIDMEALS vial 02/07/21 [Rx] Omeprazole 20 mg PO BID 30 Days #60 02/07/21 [Rx] Forms: ED Department Discharge Referrals: PCP,None [Primary Care Provider] - - Discharge Summary/Plan Comment DC Time >30 min.: Yes Total # of Minutes for Discharge Time: 40 min. visit X 2 today + DC summary - General Info Date of Service: 02/07/21 Functional Status: Reports: Pain Controlled, Tolerating Diet - Review of Systems General: Denies: Fever Pulmonary: Denies: Shortness of Breath Cardiovascular: Denies: Chest Pain Gastrointestinal: Denies: Abdominal Pain, Diarrhea, Vomiting Genitourinary: Denies: Dysuria Skin: Reports: No Symptoms Neurological: Reports: No Symptoms. Denies: Confusion Psychiatric: Reports: No Symptoms. Denies: Confusion - Patient Data Vitals - Most Recent: Last Vital Signs Temp 98.9 F 02/07/21 08:00 Pulse 80 02/07/21 08:00 Resp 16 02/07/21 08:00 BP 150/82 H 02/07/21 09:19 Pulse Ox 99 02/07/21 08:00 Weight - Most Recent: 186 lb 12.8 oz I&O - Last 24 hours: Intake & Output 02/06/21 02/07/21 02/07/21 22:59 06:59 14:59 Intake Total 1412 300 994 Output Total 675 Balance 737 300 994 Lab Results - Last 24 hrs: Laboratory Results - last 24 hr 02/05/21 02/05/21 02/06/21 Range/Units 09:43 09:52 11:20 WBC (5.0-10.0) 10^3/uL RBC (4.6-6.2) 10^6/uL Hgb (14.0-18.0) g/dL Hct (40.0-54.0) % MCV (80-100) fL MCH (27.0-34.0) pg MCHC (33.0-35.0) g/dL Plt Count (150-450) 10^3/uL Neut % (Auto) (42.2-75.2) % Lymph % (Auto) (20.5-50.1) % [place] % (Auto) (2-8) % Eos % (Auto) (1.0-3.0) % Baso % (Auto) (0.0-1.0) % ABG pH 7.35 (7.35-7.45) ABG pCO2 36 (35-45) mmHg ABG pO2 73 (70-100) mmHg ABG HCO3 19.4 L (22-26) mmol/L ABG O2 Saturation 94 L (95-100) % ABG Base Excess -5 L ((-2)-(+3)) mmol/L Sergio Test Positive O2 Delivery Device Room air Sodium (136-145) mmol/L Potassium (3.5-5.1) mmol/L Chloride (98-107) mmol/L Carbon Dioxide (21-32) mmol/L Anion Gap (7-13) mEq/L BUN (7-18) mg/dL Creatinine (0.70-1.30) mg/dL Est Cr Clr Drug Dosing mL/min Estimated GFR (MDRD) Glucose (70-99) mg/dL POC Glucose 430 H* (70-99) mg/dL Lactic Acid (0.4-2.0) mmol/L Calcium (8.5-10.1) mg/dL Urine Color Yellow (YELLOW) Urine Appearance Slightly cloudy (CLEAR) Urine pH 5.0 (5.0-9.0) Ur Specific [place] 1.020 (1.005-1.030) Urine Protein Trace H (NEGATIVE) Urine Glucose (UA) 500 H (NEGATIVE) Urine Ketones Trace H (NEGATIVE) Urine Occult Blood Small H (NEGATIVE) Urine Nitrite Negative (NEGATIVE) Urine Bilirubin Negative (NEGATIVE) Urine Urobilinogen 0.2 (0.2-1.0) mg/dL Ur Leukocyte Esterase Negative (NEGATIVE) Urine RBC 5-10 H (0-5) /HPF Urine WBC 0-5 (0-5/HPF) /HPF Ur Epithelial Cells Rare (NOT SEEN) /HPF Calcium Oxalate Crystal Moderate H (NOT SEEN) /HPF Amorphous Sediment Rare (NOT SEEN) /HPF Urine Bacteria Rare (0-FEW/HPF) /HPF Urine Mucus Rare (NOT SEEN) /LPF 02/06/21 02/06/21 02/06/21 Range/Units 11:49 17:10 20:48 WBC (5.0-10.0) 10^3/uL RBC (4.6-6.2) 10^6/uL Hgb (14.0-18.0) g/dL Hct (40.0-54.0) % MCV (80-100) fL MCH (27.0-34.0) pg MCHC (33.0-35.0) g/dL Plt Count (150-450) 10^3/uL Neut % (Auto) (42.2-75.2) % Lymph % (Auto) (20.5-50.1) % [place] % (Auto) (2-8) % Eos % (Auto) (1.0-3.0) % Baso % (Auto) (0.0-1.0) % ABG pH (7.35-7.45) ABG pCO2 (35-45) mmHg ABG pO2 (70-100) mmHg ABG HCO3 (22-26) mmol/L ABG O2 Saturation (95-100) % ABG Base Excess ((-2)-(+3)) mmol/L Sergio Test O2 Delivery Device Sodium (136-145) mmol/L Potassium (3.5-5.1) mmol/L Chloride (98-107) mmol/L Carbon Dioxide (21-32) mmol/L Anion Gap (7-13) mEq/L BUN (7-18) mg/dL Creatinine (0.70-1.30) mg/dL Est Cr Clr Drug Dosing mL/min Estimated GFR (MDRD) Glucose (70-99) mg/dL POC Glucose 192 H 177 H 109 H (70-99) mg/dL Lactic Acid (0.4-2.0) mmol/L Calcium (8.5-10.1) mg/dL Urine Color (YELLOW) Urine Appearance (CLEAR) Urine pH (5.0-9.0) Ur Specific [place] (1.005-1.030) Urine Protein (NEGATIVE) Urine Glucose (UA) (NEGATIVE) Urine Ketones (NEGATIVE) Urine Occult Blood (NEGATIVE) Urine Nitrite (NEGATIVE) Urine Bilirubin (NEGATIVE) Urine Urobilinogen (0.2-1.0) mg/dL Ur Leukocyte Esterase (NEGATIVE) Urine RBC (0-5) /HPF Urine WBC (0-5/HPF) /HPF Ur Epithelial Cells (NOT SEEN) /HPF Calcium Oxalate Crystal (NOT SEEN) /HPF Amorphous Sediment (NOT SEEN) /HPF Urine Bacteria (0-FEW/HPF) /HPF Urine Mucus (NOT SEEN) /LPF 02/07/21 02/07/21 02/07/21 Range/Units 06:10 06:10 06:10 WBC 9.4 (5.0-10.0) 10^3/uL RBC 3.49 L (4.6-6.2) 10^6/uL Hgb 10.2 L (14.0-18.0) g/dL Hct 31.9 L (40.0-54.0) % MCV 91.4 (80-100) fL MCH 29.2 (27.0-34.0) pg MCHC 32.0 L (33.0-35.0) g/dL Plt Count 266 (150-450) 10^3/uL Neut % (Auto) 62.1 (42.2-75.2) % Lymph % (Auto) 30.8 (20.5-50.1) % [place] % (Auto) 6.8 (2-8) % Eos % (Auto) 0.1 L (1.0-3.0) % Baso % (Auto) 0.2 (0.0-1.0) % ABG pH (7.35-7.45) ABG pCO2 (35-45) mmHg ABG pO2 (70-100) mmHg ABG HCO3 (22-26) mmol/L ABG O2 Saturation (95-100) % ABG Base Excess ((-2)-(+3)) mmol/L Sergio Test O2 Delivery Device Sodium 143 (136-145) mmol/L Potassium 3.4 L (3.5-5.1) mmol/L Chloride 106 (98-107) mmol/L Carbon Dioxide 30 (21-32) mmol/L Anion Gap 10.4 (7-13) mEq/L BUN 18 D (7-18) mg/dL Creatinine 1.42 H (0.70-1.30) mg/dL Est Cr Clr Drug Dosing 74.77 mL/min Estimated GFR (MDRD) 53 Glucose 134 H (70-99) mg/dL POC Glucose (70-99) mg/dL Lactic Acid 1.0 (0.4-2.0) mmol/L Calcium 8.3 L (8.5-10.1) mg/dL Urine Color (YELLOW) Urine Appearance (CLEAR) Urine pH (5.0-9.0) Ur Specific [place] (1.005-1.030) Urine Protein (NEGATIVE) Urine Glucose (UA) (NEGATIVE) Urine Ketones (NEGATIVE) Urine Occult Blood (NEGATIVE) Urine Nitrite (NEGATIVE) Urine Bilirubin (NEGATIVE) Urine Urobilinogen (0.2-1.0) mg/dL Ur Leukocyte Esterase (NEGATIVE) Urine RBC (0-5) /HPF Urine WBC (0-5/HPF) /HPF Ur Epithelial Cells (NOT SEEN) /HPF Calcium Oxalate Crystal (NOT SEEN) /HPF Amorphous Sediment (NOT SEEN) /HPF Urine Bacteria (0-FEW/HPF) /HPF Urine Mucus (NOT SEEN) /LPF SALLY Results - Last 24 hrs: Microbiology 02/06/21 11:20 Urine Culture - Preliminary Urine, Clean Catch NO GROWTH AFTER 1 DAY 02/05/21 09:53 Aerobic Blood Culture - Preliminary Blood - Venous - Iv Start NO GROWTH AFTER 1 DAY Anaerobic Blood Culture - Preliminary NO GROWTH AFTER 1 DAY 02/05/21 09:50 Aerobic Blood Culture - Preliminary Blood - Venous - Iv Start NO GROWTH AFTER 1 DAY Anaerobic Blood Culture - Final Med Orders - Current: Current Medications Acetaminophen (Acetaminophen 325 Mg Tab) 650 mg PO Q4H PRN PRN Reason: Pain (Mild 1-3)/fever Last Admin: 02/06/21 16:22 Dose: 650 mg Documented by: Amlodipine Besylate (Amlodipine 5 Mg Tab) 5 mg PO DAILY [facility] Last Admin: 02/07/21 09:19 Dose: 5 mg Documented by: Amoxicillin/Clavulanate Potassium (Amoxicillin/Clavulanate K 875-125 Mg Tab) 1 tab PO Q12HR [facility] Dextrose/Water (50% Dextrose In Water 50 Ml Syringe) 50 ml IVPUSH Q15M PRN PRN Reason: Hypoglycemia Glucagon (Glucagon,Human Recombinant 1 Mg Vial) 1 mg IM Q15M PRN PRN Reason: Hypoglycemia Piperacillin Sod/Tazobactam (Sod 3.375 gm/ Sodium Chloride) 100 mls @ 200 mls/hr IV Q6H [facility] Last Admin: 02/07/21 06:42 Dose: Not Given Documented by: Potassium Chloride/Dextrose/Sod Cl (D5 1/2 Ns W/ 10 Meq/L Kcl) 1,000 mls @ 100 mls/hr IV ASDIRECTED [facility] Last Admin: 02/07/21 07:32 Dose: 100 mls/hr Documented by: Influenza Virus Vaccine (Pharmacy To Dose - Influenza Vaccine) 1 each IM DAILY [facility] Last Admin: 02/06/21 09:47 Dose: Not Given Documented by: Insulin Glargine (Insulin Glarg,Human.Rec.Analog 100 Unit/Ml) 23 unit SUBCUT DAILY [facility] Last Admin: 02/07/21 09:18 Dose: 23 units Documented by: Insulin Human Lispro (Insulin Lispro 100 Units/Ml 3 Ml Vial) 12 unit SUBCUT TIDMEALS [facility] Last Admin: 02/07/21 09:18 Dose: 12 units Documented by: Levothyroxine Sodium (Levothyroxine 100 Mcg Tab) 200 mcg PO ACBREAKFAST [facility] Last Admin: 02/07/21 06:42 Dose: Not Given Documented by: Metoclopramide HCl (Metoclopramide 10 Mg/2 Ml Sdv) 10 mg IVPUSH Q8H PRN PRN Reason: Nausea/Vomiting Last Admin: 02/06/21 14:59 Dose: 10 mg Documented by: Ondansetron HCl (Ondansetron 4 Mg/2 Ml Sdv) 4 mg IVPUSH Q6HR PRN PRN Reason: Nausea/Vomiting Last Admin: 02/06/21 08:47 Dose: 4 mg Documented by: Pantoprazole Sodium (Pantoprazole 40 Mg Vial) 40 mg IVPUSH BEDTIME [facility] Last Admin: 02/06/21 20:43 Dose: 40 mg Documented by: Promethazine HCl (Promethazine 25 Mg/Ml Sdv) 12.5 mg IM Q6H PRN PRN Reason: Nausea/Vomiting Last Admin: 02/06/21 11:19 Dose: 12.5 mg Documented by: Sertraline HCl (Sertraline 50 Mg Tab) 25 mg PO DAILY [facility] Last Admin: 02/07/21 09:19 Dose: 25 mg Documented by: Sodium Chloride (Sodium Chloride 0.9% 10 Ml Syringe) 10 ml FLUSH ASDIRECTED PRN PRN Reason: Keep Vein Open Last Admin: 02/06/21 20:49 Dose: 10 ml Documented by: Discontinued Medications Dextrose/Water (50% Dextrose In Water 50 Ml Syringe) 50 ml IVPUSH Q15M PRN PRN Reason: Hypoglycemia Diphenhydramine HCl (Diphenhydramine 50 Mg/Ml Sdv) 12.5 mg IVPUSH ONETIME ONE Stop: 02/05/21 10:34 Last Admin: 02/05/21 10:39 Dose: 12.5 mg Documented by: Glucagon (Glucagon,Human Recombinant 1 Mg Vial) 1 mg IM Q15M PRN PRN Reason: Hypoglycemia Sodium Chloride (Normal Saline) 1,000 mls @ 999 mls/hr IV .BOLUS ONE Stop: 02/05/21 10:46 Last Admin: 02/05/21 10:04 Dose: 999 mls/hr Documented by: Pantoprazole Sodium 40 mg/ (Sodium Chloride) 100 mls @ 20 mls/hr IV .CONTINUOS [facility] Pantoprazole Sodium 40 mg/ (Sodium Chloride) 100 mls @ 20 mls/hr IV Q5H [facility] Last Admin: 02/06/21 06:18 Dose: 20 mls/hr Documented by: Octreotide Acetate 100 mcg/ (Sodium Chloride) 100 mls @ 50 mls/hr IV Q10H [facility] Last Admin: 02/06/21 06:18 Dose: 50 mls/hr Documented by: Insulin Regular in 0.9 % NACL (Myxredlin In Ns 100 Unit/100 Ml) 100 unit in 100 mls @ 7.629 mls/hr IV TITRATE [facility]; Protocol Last Titration: 02/05/21 14:32 Dose: 0 units/kg/hr, 0 mls/hr Documented by: Sodium Chloride (Normal Saline) 1,000 mls @ 999 mls/hr IV .BOLUS ONE Stop: 02/05/21 12:26 Last Infusion: 02/05/21 11:27 Dose: 400 mls/hr Documented by: Sodium Chloride (Normal Saline) 1,000 mls @ 999 mls/hr IV .BOLUS ONE Stop: 02/05/21 12:32 Last Admin: 02/05/21 11:49 Dose: Not Given Documented by: Potassium Chloride/Sodium Chloride (Normal Saline With 40 Meq Kcl) 1,000 mls @ 100 mls/hr IV ASDIRECTED [facility] Last Infusion: 02/06/21 09:40 Dose: Infused Documented by: Insulin Human Regular (Insulin Regular, Human 100 Units/Ml 3 Ml Vial) 7 unit IV ONETIME ONE Stop: 02/05/21 10:32 Last Admin: 02/05/21 10:39 Dose: 7 units Documented by: Metoclopramide HCl (Metoclopramide 10 Mg/2 Ml Sdv) 10 mg IVPUSH ONETIME ONE Stop: 02/05/21 10:33 Last Admin: 02/05/21 10:39 Dose: 10 mg Documented by: Octreotide Acetate (Octreotide 100 Mcg/Ml Sdv) 50 mcg IVPUSH ONETIME ONE Stop: 02/05/21 09:54 Last Admin: 02/05/21 10:05 Dose: 50 mcg Documented by: Ondansetron HCl (Ondansetron 4 Mg/2 Ml Sdv) 8 mg IV ONETIME ONE Stop: 02/05/21 09:47 Last Admin: 02/05/21 10:05 Dose: 8 mg Documented by: Ondansetron HCl (Ondansetron 4 Mg/2 Ml Sdv) Confirm Administered Dose 4 mg .ROUTE .[facility] ONE Stop: 02/05/21 09:59 Last Admin: 02/05/21 10:08 Dose: Not Given Documented by: Pantoprazole Sodium (Pantoprazole 40 Mg Vial) 80 mg IVPUSH .BOLUS ONE Stop: 02/05/21 09:47 Last Admin: 02/05/21 10:04 Dose: 80 mg Documented by: Pantoprazole Sodium (Pantoprazole 40 Mg Vial) Confirm Administered Dose 40 mg .ROUTE .[facility] ONE Stop: 02/05/21 14:02 Last Admin: 02/05/21 14:16 Dose: Not Given Documented by: Simethicone (Simethicone 80 Mg Tab.Chew) 160 mg PO ONETIME ONE Stop: 02/05/21 21:52 Last Admin: 02/05/21 22:27 Dose: 160 mg Documented by: Simethicone (Simethicone 80 Mg Tab.Chew) 80 mg PO ONETIME ONE Stop: 02/06/21 06:01 Last Admin: 02/06/21 06:16 Dose: 80 mg Documented by: Sodium Chloride (Sodium Chloride 0.9% 10 Ml Syringe) 10 ml FLUSH ASDIRECTED PRN PRN Reason: Keep Vein Open Last Admin: 02/05/21 10:05 Dose: 10 ml Documented by: Sodium Chloride (Sodium Chloride 0.9% 10 Ml Syringe) 10 ml FLUSH ASDIRECTED PRN PRN Reason: Keep Vein Open Last Admin: 02/05/21 10:06 Dose: 10 ml Documented by: - Exam Quality Assessment: Denies: Supplemental Oxygen General: Reports: Alert, Oriented HEENT: Reports: EOMI Lungs: Reports: Clear to Auscultation Cardiovascular: Reports: Regular Rate, Regular Rhythm GI/Abdominal Exam: Soft, Non-Tender, No Organomegaly, No Distention, No Mass Extremities: No Pedal Edema Skin: Reports: Warm, Dry Neurological: Reports: No New Focal Deficit Psy/Mental Status: Reports: Alert, Normal Affect
[2021-02-07] MEDS ORDERED: Amoxicillin/Clavulanate K 875-125 MG Tab PO SCH (21:00)
== END 2021-02-07 12:20 | disposition home or self-care (01) | DRG 872 ==
LOC: DL.ED 09:35 → DL.MS 13:05 → DL.ED 13:30 → OBSVTOIN 18:57
PROVIDERS: ADMIT Internal Medicine; ATTEND Internal Medicine
DX: A41.9 Sepsis, unspecified organism (principal); K92.2 Gastrointestinal hemorrhage, unspecified; Z20.822 Contact with and (suspected) exposure to COVID-19
CPT/HCPCS: 36415; 36600; 71045; 76700; 80048; 80053; 80305-QW; 80307; 81001; 82009; 82150; 82271; 82803; 82947; 83605; 83690; 83735; 84100; 84484; 85025; 85027; 85610; 85730; 86850; 86900; 86901; 87040; 87086; 90686; 93005; 96365; 96366; 96375; 99285-25; A9270-GY; C9113; G0008; J1200; J1815-GY; J2354-JA; J2405; J2543; J2550; J2765; J3480; J7030; U0002

== ENCOUNTER 2021-03-08 00:10 | Emergency (ER) | payer MEDICARE, OTHER ==
[2021-03-08 00:01] LABS: ANION GAP 13.9 mEq/L (7-13); CHLORIDE,CL 103 mmol/L (98-107); SODIUM,NA 141 mmol/L (136-145)
--- NOTE | 2021-03-08 00:09 | EDM.PDOC ---
ED HPI GENERAL MEDICAL PROBLEM - General Chief Complaint: Diabetic Complaint Stated Complaint: AMBULANCE Time Seen by Provider: 03/07/21 23:45 Source of Information: Reports: Patient, EMS, Family (Mother), RN, RN Notes Reviewed History Limitations: Reports: Altered Mental Status - History of Present Illness INITIAL COMMENTS - FREE TEXT/NARRATIVE: Bernardo is a 45 y/o male with a history of diabetes mellitus Type I who presents to the ED via [facility] with complaints of hypoglycemia with seizure-like activity. Upon arrival to this facility the patient remains somewhat post- ictal, alert and able to follow commands but is nonverbal. Approximately ten minutes later he is able to state his name and is oriented to all spheres. The patient notes he takes Lantus and NovoLog for insulin therapy, however he is uncertain how much and his doses this evening. He denies recent fever, shaking chills, vision changes, headache, dizziness, cough, sore throat, chest pain/palpitations, shortness of breath, nausea, abdominal pain, or diarrhea. His notes his Lantus and NovoLog doses were increased by his fondant cooker approximately 14 days ago; she is unsure of the doses as the patient is independent with his medication management. Review of his blood glucose monitor from the past five days reveals reading ranging from the mid- 300s down to 46 in the middle of the night. - Related Data Allergies Allergy/AdvReac Type Severity Reaction Status Date / Time No Known Allergies Allergy Verified 03/07/21 23:46 Home Meds: Home Meds Insulin Aspart [NovoLOG] See Protocol SQ TIDMEALS 08/02/15 [History] Insulin Glarg,Human.Rec.Analog [Lantus] 40 units SQ BEDTIME 08/02/15 [History] Levothyroxine 200 mcg PO ACBREAKFAST 07/17/20 [History] Timolol Maleate [Timoptic] 1 drop EYEBOTH BID 07/26/20 [History] Metoclopramide HCl 10 mg PO TIDMEALS 02/05/21 [History] Sertraline HCl 25 mg PO DAILY 02/05/21 [History] amLODIPine Besylate [Amlodipine Besylate] 5 mg PO DAILY 02/05/21 [History] Insulin Glarg,Human.Rec.Analog [Lantus] 23 unit SUBCUT DAILY ml 02/07/21 [Rx] Insulin Lispro [HumaLOG] 12 unit SUBCUT TIDMEALS vial 02/07/21 [Rx] Omeprazole 20 mg PO BID 30 Days #60 02/07/21 [Rx] Dextrose 50% in Water [Dextrose 50%-Water] 50 ml IVPUSH Q15M PRN syringe 02/15/21 [Rx] Insulin Lispro [HumaLOG] 0 unit SUBCUT WITHMEALSANDBED vial 02/15/21 [Rx] Past Medical History HEENT History: Reports: Glaucoma, Impaired Vision, Other (See Below) 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" Cardiovascular History: Reports: High Cholesterol, Hypertension Respiratory History: Reports: None Gastrointestinal History: Reports: GERD, GI Bleed Genitourinary History: Reports: Chronic Renal Insuffiency, Other (See Below) Other Genitourinary History: ED Musculoskeletal History: Reports: None Neurological History: Reports: Neuropathy, Peripheral Psychiatric History: Reports: Depression Endocrine/Metabolic History: Reports: Diabetes, Type I, Hypothyroidism, Obesity/BMI 30+ Hematologic History: Reports: None Immunologic History: Reports: None Oncologic (Cancer) History: Reports: None Dermatologic History: Reports: Cellulitis - Infectious Disease History Infectious Disease History: Reports: MRSA - Past Surgical History Head Surgeries/Procedures: Reports: None HEENT Surgical History: Reports: Eye Surgery Cardiovascular Surgical History: Reports: None Respiratory Surgical History: Reports: None GI Surgical History: Reports: None Male Surgical History: Reports: None Endocrine Surgical History: Reports: None Neurological Surgical History: Reports: None Musculoskeletal Surgical History: Reports: None Oncologic Surgical History: Reports: None Dermatological Surgical History: Reports: None Social & Family History - Family History Family Medical History: No Pertinent Family History - Caffeine Use Caffeine Use: Reports: None - Living Situation & Occupation Living situation: Reports: , with Family ED ROS GENERAL - Review of Systems Review Of Systems: Comprehensive ROS is negative, except as noted in HPI. ED EXAM GENERAL NO PERIP PULSE - Physical Exam Exam: See Below Exam Limited By: Altered Mental Status General Appearance: Alert, No Apparent Distress Eye Exam: Bilateral Eye: EOMI, PERRL (3mm) Ears: Normal External Exam, Hearing Grossly Normal Nose: Normal Inspection Throat/Mouth: Normal Inspection, Normal Oropharynx, Normal Voice, No Airway Compromise Head: Atraumatic, Normocephalic Neck: Normal Inspection, Full Range of Motion Respiratory/Chest: No Respiratory Distress, Lungs Clear, Normal Breath Sounds, No Accessory Muscle Use, Chest Non-Tender. No: Crackles, Rales, Rhonchi, Wheezing, Stridor Cardiovascular: Normal Peripheral Pulses, Regular Rate, Rhythm, No Edema, No Gallop, No JVD, No Murmur, No Rub GI/Abdominal: Normal Bowel Sounds, Soft, Non-Tender, No Distention, No Abnormal Bruit, No Mass, Pelvis Stable (Male) Exam: Deferred Rectal (Males) Exam: Deferred Back Exam: Normal Inspection, Full Range of Motion Extremities: Normal Inspection, Normal Range of Motion, Normal Capillary Refill Neurological: Alert, Oriented (10-minutes after arrival), Normal Cognition, No Motor/Sensory Deficits, Disoriented (Immediately upon arrival), Slow to Respond, Memory Loss Recent Events. No: Memory Loss Remote Events Psychiatric: Normal Mood, Flat Affect Skin Exam: Warm, Intact, No Rash, Diaphoretic, Pallor. No: Cyanosis, Jaundice, Mottled #1 Interpretation EKG Date: 03/08/21 Time: 23:53 Rhythm: NSR Rate (Beats/Min): 79 [place]: Normal P-Wave: Present QRS: Normal ST-T: Normal QT: Normal MA/PQ Interval: 0.148 Comparison: No Change EKG Interpretation Comments: NSR; No evidence of acute myocardial ischemia Course - Vital Signs Last Recorded V/S: Last Vital Signs Temp 97.4 F 03/08/21 01:04 Pulse 74 03/08/21 02:30 Resp 12 03/08/21 02:30 BP 142/97 H 03/08/21 02:30 Pulse Ox 97 03/08/21 02:30 - Orders/Labs/Meds Orders: Active Orders 24 hr Category Date Time Status Admission Diagnosis [ADT] Stat ADT 03/08/21 01:23 Ordered Admission Status [Patient Status] [ADT] Routine ADT 03/08/21 01:23 Active Labs: Laboratory Tests 03/07/21 03/07/21 03/07/21 Range/Units 23:36 23:36 23:36 WBC 7.3 (5.0-10.0) 10^3/uL RBC 3.40 L (4.6-6.2) 10^6/uL Hgb 10.0 L (14.0-18.0) g/dL Hct 31.0 L (40.0-54.0) % MCV 91.2 D (80-100) fL MCH 29.4 (27.0-34.0) pg MCHC 32.3 L (33.0-35.0) g/dL Plt Count 357 (150-450) 10^3/uL Neut % (Auto) 54.0 (42.2-75.2) % Lymph % (Auto) 36.9 (20.5-50.1) % [place] % (Auto) 6.2 (2-8) % Eos % (Auto) 2.3 (1.0-3.0) % Baso % (Auto) 0.6 (0.0-1.0) % Sodium 141 (136-145) mmol/L Potassium 3.9 (3.5-5.1) mmol/L Chloride 103 (98-107) mmol/L Carbon Dioxide 28 (21-32) mmol/L Anion Gap 13.9 H (7-13) mEq/L BUN 19 H D (7-18) mg/dL Creatinine 1.30 D (0.70-1.30) mg/dL Est Cr Clr Drug Dosing TNP Estimated GFR (MDRD) 59 BUN/Creatinine Ratio 14.6 (No establ ref range) Glucose 213 H (70-99) mg/dL POC Glucose (70-99) mg/dL Lactic Acid 2.1 H* (0.4-2.0) mmol/L Calcium 8.5 (8.5-10.1) mg/dL Magnesium 1.8 (1.8-2.4) mg/dL Total Bilirubin 0.4 (0.2-1.0) mg/dL AST 22 (15-37) U/L ALT 26 (16-63) U/L Alkaline Phosphatase 121 H (46-116) U/L Troponin I High Sens < 4 (<=76) pg/mL C-Reactive Protein < 0.2 (0.0-0.9) mg/dL Total Protein 6.7 (6.4-8.2) g/dL Albumin 3.1 L (3.4-5.0) g/dL Globulin 3.6 Albumin/Globulin Ratio 0.86 Ethyl Alcohol < 3 (0) mg/dL SARS-CoV-2 RNA (NAHED) (NEGATIVE) 03/08/21 03/08/21 03/08/21 Range/Units 00:21 00:59 01:32 WBC (5.0-10.0) 10^3/uL RBC (4.6-6.2) 10^6/uL Hgb (14.0-18.0) g/dL Hct (40.0-54.0) % MCV (80-100) fL MCH (27.0-34.0) pg MCHC (33.0-35.0) g/dL Plt Count (150-450) 10^3/uL Neut % (Auto) (42.2-75.2) % Lymph % (Auto) (20.5-50.1) % [place] % (Auto) (2-8) % Eos % (Auto) (1.0-3.0) % Baso % (Auto) (0.0-1.0) % Sodium (136-145) mmol/L Potassium (3.5-5.1) mmol/L Chloride (98-107) mmol/L Carbon Dioxide (21-32) mmol/L Anion Gap (7-13) mEq/L BUN (7-18) mg/dL Creatinine (0.70-1.30) mg/dL Est Cr Clr Drug Dosing Estimated GFR (MDRD) BUN/Creatinine Ratio (No establ ref range) Glucose (70-99) mg/dL POC Glucose 89 88 (70-99) mg/dL Lactic Acid (0.4-2.0) mmol/L Calcium (8.5-10.1) mg/dL Magnesium (1.8-2.4) mg/dL Total Bilirubin (0.2-1.0) mg/dL AST (15-37) U/L ALT (16-63) U/L Alkaline Phosphatase (46-116) U/L Troponin I High Sens (<=76) pg/mL C-Reactive Protein (0.0-0.9) mg/dL Total Protein (6.4-8.2) g/dL Albumin (3.4-5.0) g/dL Globulin Albumin/Globulin Ratio Ethyl Alcohol (0) mg/dL SARS-CoV-2 RNA (NAHED) Negative (NEGATIVE) 03/08/21 03/08/21 Range/Units 02:11 03:28 WBC (5.0-10.0) 10^3/uL RBC (4.6-6.2) 10^6/uL Hgb (14.0-18.0) g/dL Hct (40.0-54.0) % MCV (80-100) fL MCH (27.0-34.0) pg MCHC (33.0-35.0) g/dL Plt Count (150-450) 10^3/uL Neut % (Auto) (42.2-75.2) % Lymph % (Auto) (20.5-50.1) % [place] % (Auto) (2-8) % Eos % (Auto) (1.0-3.0) % Baso % (Auto) (0.0-1.0) % Sodium (136-145) mmol/L Potassium (3.5-5.1) mmol/L Chloride (98-107) mmol/L Carbon Dioxide (21-32) mmol/L Anion Gap (7-13) mEq/L BUN (7-18) mg/dL Creatinine (0.70-1.30) mg/dL Est Cr Clr Drug Dosing Estimated GFR (MDRD) BUN/Creatinine Ratio (No establ ref range) Glucose (70-99) mg/dL POC Glucose 141 H 137 H (70-99) mg/dL Lactic Acid (0.4-2.0) mmol/L Calcium (8.5-10.1) mg/dL Magnesium (1.8-2.4) mg/dL Total Bilirubin (0.2-1.0) mg/dL AST (15-37) U/L ALT (16-63) U/L Alkaline Phosphatase (46-116) U/L Troponin I High Sens (<=76) pg/mL C-Reactive Protein (0.0-0.9) mg/dL Total Protein (6.4-8.2) g/dL Albumin (3.4-5.0) g/dL Globulin Albumin/Globulin Ratio Ethyl Alcohol (0) mg/dL SARS-CoV-2 RNA (NAHED) (NEGATIVE) Meds: Medications Discontinued Medications Generic Name Dose Route Start Last Admin Trade Name Freq PRN Reason Stop Dose Admin Dextrose/Water Confirm 03/07/21 23:29 50% Dextrose In Water 50 Ml Syringe Administered 03/07/21 23:30 Dose 50 ml .ROUTE .STK-MED ONE Dextrose/Water 50 ml 03/07/21 23:47 03/07/21 23:32 50% Dextrose In Water 50 Ml Syringe IVPUSH 03/07/21 23:48 50 ml ONETIME ONE Administration Dextrose/Water 500 mls @ 150 mls/hr 03/07/21 23:28 03/08/21 00:03 Dextrose 10% In Water IV 03/08/21 02:47 150 mls/hr ONETIME ONE Administration Thiamine HCl 100 mg/ Sodium 101 mls @ 202 mls/hr 03/08/21 02:25 03/08/21 02:50 Chloride IV 03/08/21 02:26 202 mls/hr ONETIME ONE Administration - Re-Assessments/Exams Free Text/Narrative Re-Assessment/Exam: 03/08/21 D50 given upon assessment for BS of 49, will hang D10 while labs pending. BS at 1-hour with D10 [address] Lee, who kindly accepted patient for admission hypoglycemia and seizures. Findings of examination, lab work, and discussion with Dr. Lee reviewed with patient and . Patient verbalized understanding and agreement with the plan of care. Dr. Lee here to assess patient for admission, patient now stating he does not want admission and wants to monitor his blood sugars at home with the assistance of his . D10 IV stopped and thiamine 100mg administered prior to patient leaving AMA. Departure - Departure Time of Disposition: 03:40 Disposition: Against Medical Advice 07 Clinical Impression: Diabetes mellitus type 1, uncontrolled, with complications, Hypoglycemia due to type 1 diabetes mellitus - Discharge Information Referrals: Moises Wilder MD [Primary Care Provider] - Forms: ED Department Discharge Sepsis Event Note (ED) - Evaluation Sepsis Screening Result: No Definite Risk - Focused Exam Vital Signs: Vital Signs Temp Pulse Resp BP Pulse Ox 03/08/21 02:30 74 12 142/97 H 97 03/08/21 01:04 97.4 F 76 18 130/91 H 99 03/07/21 23:45 97.1 F 82 12 147/93 H 97 - My Orders Last 24 Hours: My Active Orders 03/08/21 01:23 Admission Diagnosis [ADT] Stat Admission Status [Patient Status] [ADT] Routine - Assessment/Plan Last 24 Hours: My Active Orders 03/08/21 01:23 Admission Diagnosis [ADT] Stat Admission Status [Patient Status] [ADT] Routine
[~2021-03-08 00:10] MED LIST changes: +50% Dextrose in Water 50 ML Syringe IVPUSH ONE; +50% Dextrose in Water 50 ML Syringe ONE; +Dextrose 10% in Water 500 ML IV ONE; -Midazolam 1 MG/ML 2 ML SDV ONE; -fentaNYL 100 MCG/2 ML SDV ONE
[2021-03-08] MEDS ORDERED: Thiamine 100 MG in Sodium Chloride 0.9% 100 ML IV ONE (02:25)
[2021-03-08 02:57] VITALS: BP 142/97; PULSE 74
== END 2021-03-08 03:40 | disposition left against medical advice (07) ==
LOC: DL.ED 00:10
DX: E10.649 Type 1 diabetes mellitus with hypoglycemia without coma (principal); E10.42 Type 1 diabetes mellitus with diabetic polyneuropathy; E78.00 Pure hypercholesterolemia, unspecified; I10 Essential (primary) hypertension; E03.9 Hypothyroidism, unspecified; E66.9 Obesity, unspecified; Z68.22 Body mass index [BMI] 22.0-22.9, adult; Z79.899 Other long term (current) drug therapy; Z20.822 Contact with and (suspected) exposure to COVID-19
CPT/HCPCS: 36415; 80053; 80307; 82947; 83605; 83735; 84484; 85025; 86140; 93005; 96365; 99285; J3411; U0002

== ENCOUNTER 2022-04-18 11:23 | Emergency (ER) | payer MEDICARE, OTHER ==
[2022-04-18] MEDS ORDERED: Sodium Chloride 0.9% 1,000 ML IV ONE ×3 (12:00→14:28)
[2022-04-18] MEDS ORDERED: Metoclopramide 10 MG/2 ML SDV IVPUSH ONE (12:00)
[2022-04-18 12:15] VITALS: BP 102/70; PULSE 93
[2022-04-18 12:49] LABS: ANION GAP 16.3 mEq/L (7-13)
== END 2022-04-18 15:20 | disposition left against medical advice (07) ==
LOC: DL.ED 11:23
DX: N17.9 Acute kidney failure, unspecified (principal); D72.825 Bandemia; I10 Essential (primary) hypertension; E10.9 Type 1 diabetes mellitus without complications; E66.9 Obesity, unspecified; Z68.28 Body mass index [BMI] 28.0-28.9, adult; Z79.4 Long term (current) use of insulin; Z79.899 Other long term (current) drug therapy
CPT/HCPCS: 36415; 74176; 80053; 80143; 80179; 82150; 83605; 83690; 83735; 84484; 85025; 87040; 93005; 96361; 96374; 99284; J2765; J7030

== ENCOUNTER 2022-09-09 19:28 | Emergency (ER) | payer MEDICARE, OTHER | END 2022-09-09 20:26 | disposition left against medical advice (07) | LOC: DL.ED 19:28 | DX: Z53.21 Procedure and treatment not carried out due to patient leaving prior to being seen by health care provider (principal) ==

== ENCOUNTER 2022-09-10 04:11 | Inpatient (IN) | payer MEDICARE, OTHER ==
[2022-09-10] MEDS ORDERED: Sodium Chloride 0.9% 10 ML Syringe FLUSH PRN (04:36)
[2022-09-10] MEDS ORDERED: Ondansetron 4 MG/2 ML SDV IVPUSH ONE ×2 (04:38→05:48)
[2022-09-10] MEDS ORDERED: Sodium Chloride 0.9% 1,000 ML IV ONE ×3 (04:38→05:38)
[2022-09-10 04:45] LABS: BASOPHILS PERCENT AUTO 0.1 % (0.0-1.0); HEMATOCRIT 42.4 % (40.0-54.0); HEMOGLOBIN 14.3 g/dL (14.0-18.0); LYMPHOCYTES PERCENT AUTO 7.4 % (20.5-50.1); MEAN CORPUSCULAR HGB CONC 33.7 g/dL (33.0-35.0); MEAN CORPUSCULAR VOLUME 80.2 fL (80-100); MONOCYTES PERCENT AUTO 2.2 % (2-8); NEUTROPHILS PERCENT AUTO 90.3 % (42.2-75.2); PLATELET COUNT,PLT 278 10^3/uL (150-450); RED BLOOD CELL COUNT 5.29 10^6/uL (4.6-6.2); WHITE BLOOD CELL COUNT,WBC 16.5 10^3/uL (5.0-10.0)
[2022-09-10 04:47] LABS: O2 DELIVERY DEVICE ROOM AIR
[2022-09-10 04:54] LABS: BICARBONATE,VENOUS 25 mmol/l (19-25); O2 SATURATION VENOUS 47 % (60-80); PCO2 VENOUS 39 mmHg (41-51); PH,VENOUS 7.43 (7.31-7.41); PO2 VENOUS 25 mmHg (35-42)
[2022-09-10 04:55] LABS: BASE EXCESS VENOUS 1 mmol/l ((-2)-(+3))
[2022-09-10] MEDS ORDERED: Pantoprazole 40 MG Vial IVPUSH ONE (04:55)
[2022-09-10] MEDS ORDERED: Pantoprazole 40 MG in Sodium Chloride 0.9% 100 ML IV SCH (05:00)
[2022-09-10 05:20] LABS: A/G RATIO 0.9; ALBUMIN 4.3 g/dL (3.4-5.0); ANION GAP 22.8 mEq/L (7-13); BILIRUBIN TOTAL 1.2 mg/dL (0.2-1.0); BUN/CREATININE RATIO 17.3 (No establ ref range); C-REACTIVE PROTEIN 0.8 mg/dL (0.0-0.9); CALCIUM 11.1 mg/dL (8.5-10.1); CREATININE 3.47 mg/dL (0.70-1.30); EST CRCL DRUG DOSING (CG) 27.43 mL/min; PHOSPHORUS 3.9 mg/dL (2.6-4.7); POTASSIUM,K 3.8 mmol/L (3.5-5.1); PROTEIN TOTAL,TP 8.9 g/dL (6.4-8.2)
[2022-09-10 05:22] LABS: LACTIC ACID 4.1 mmol/L (0.4-2.0)
[2022-09-10] MEDS ORDERED: Insulin Regular, Human 100 Units/ML 3 ML Vial IV ONE (05:22)
[2022-09-10] MEDS ORDERED: 50% Dextrose in Water 50 ML Syringe IVPUSH PRN ×4 (05:22→16:53)
[2022-09-10] MEDS ORDERED: Glucagon,Human Recombinant 1 MG Vial IM PRN ×4 (05:22→16:53)
[2022-09-10] MEDS ORDERED: Tranexamic Acid 1,000 MG in Sodium Chloride 0.9% 100 ML IV ONE (05:58)
[2022-09-10 06:04] LABS: PROTHROMBIN TIME 10.4 SEC (9.0-12.0); PTT,PARTIAL THROMBOPLSTIN TIME 22.6 SEC (22.0-34.0)
[2022-09-10] MEDS ORDERED: Piperacillin/Tazobactam 3.375 GM in Sodium Chloride 0.9% 100 ML IV ONE (06:45)
[2022-09-10 07:01] LABS: CORONAVIRUS COVID-19 NAA NEGATIVE (NEGATIVE); INFLUENZA A NAA NEGATIVE (NEGATIVE); INFLUENZA B NAA NEGATIVE (NEGATIVE); RESPIRATORY SYNCYTIAL VIR NAA NEGATIVE (NEGATIVE)
[2022-09-10] MEDS ORDERED: NS with KCl 40mEq 1,000 ML IV SCH (07:45)
[2022-09-10] MEDS ORDERED: Ondansetron 4 MG/2 ML SDV IV ONE (07:46)
[2022-09-10 08:42] LABS: BASOPHILS PERCENT AUTO 0.1 % (0.0-1.0); HEMATOCRIT 34.1 % (40.0-54.0); HEMOGLOBIN 11.6 g/dL (14.0-18.0); LYMPHOCYTES PERCENT AUTO 5.8 % (20.5-50.1); MEAN CORPUSCULAR HEMOGLOBIN 27.3 pg (27.0-34.0); MEAN CORPUSCULAR VOLUME 80.2 fL (80-100); NEUTROPHILS PERCENT AUTO 89.1 % (42.2-75.2); PLATELET COUNT,PLT 203 10^3/uL (150-450); RED BLOOD CELL COUNT 4.25 10^6/uL (4.6-6.2); WHITE BLOOD CELL COUNT,WBC 16.5 10^3/uL (5.0-10.0)
[2022-09-10 08:56] LABS: ANION GAP 18.1 mEq/L (7-13); BLOOD UREA NITROGEN,BUN 61 mg/dL (7-18); CALCIUM 9.8 mg/dL (8.5-10.1); CARBON DIOXIDE,CO2 25 mmol/L (21-32); CHLORIDE,CL 106 mmol/L (98-107); CREATININE 2.98 mg/dL (0.70-1.30); EST CRCL DRUG DOSING (CG) 31.94 mL/min; GLUCOSE RANDOM 325 mg/dL (70-99); POTASSIUM,K 4.1 mmol/L (3.5-5.1); SODIUM,NA 145 mmol/L (136-145)
[2022-09-10 08:58] LABS: KETONES,BLOOD SMALL-20 mg/dL
[2022-09-10 09:01] LABS: ESTIMATED GFR 25 mL/min (>=60)
[2022-09-10] MEDS ORDERED: Metoclopramide 10 MG/2 ML SDV IVPUSH ONE (09:19)
[2022-09-10] MEDS ORDERED: Ondansetron 4 MG/2 ML SDV IVPUSH PRN (10:55)
[2022-09-10] MEDS ORDERED: Acetaminophen 325 MG Tab PO PRN (10:55)
[2022-09-10] MEDS ORDERED: Docusate Sodium 100 MG Cap PO PRN (10:55)
[2022-09-10] MEDS ORDERED: Non-Formulary Medication 1 Each (Insulin Aspart 100 UNIT/ML Insuln.Pen) SUBCUT SCH (12:00)
[2022-09-10] MEDS ORDERED: Insulin Lispro 100 Units/ML 3 ML Vial SUBCUT SCH (12:00)
[2022-09-10] MEDS: Piperacillin/Tazobactam 3.375 GM in Sodium Chloride 0.9% 100 ML IV SCH ×2 (12:13→17:34)
[2022-09-10] MEDS: Metoclopramide 10 MG/2 ML SDV IVPUSH SCH ×2 (12:28→22:03)
[2022-09-10] MEDS: Sodium Chloride 0.9% 1,000 ML IV SCH (13:06)
[2022-09-10 14:51] LABS: APPEARANCE,URINE CLEAR (CLEAR); BILIRUBIN,URINE SMALL (NEGATIVE); COLOR,URINE YELLOW (YELLOW); GLUCOSE,URINE 500 (NEGATIVE); KETONES,URINE 40 (NEGATIVE); LEUKOCYTE ESTERASE,URINE NEGATIVE (NEGATIVE); NITRITE,URINE NEGATIVE (NEGATIVE); OCCULT BLOOD,URINE NEGATIVE (NEGATIVE); PROTEIN,URINE 100 (NEGATIVE); UROBILINOGEN,URINE 0.2 mg/dL (0.2-1.0)
[2022-09-10 15:09] LABS: AMORPHOUS SEDIMENT,URINE FEW /HPF (NOT SEEN); BACTERIA,URINE MODERATE /HPF (0-FEW/HPF); EPITHELIAL CELLS,URINE MODERATE /HPF (NOT SEEN); MUCUS,URINE MODERATE /LPF (NOT SEEN); RBC,URINE 0-5 /HPF (0-5); WBC,URINE 0-5 /HPF (0-5/HPF)
[2022-09-10] MEDS: Insulin Lispro 100 Units/ML 3 ML Vial SUBCUT SCH ×2 (17:24→20:39)
[2022-09-10] MEDS ORDERED: Insulin Glarg,Human.Rec.Analog 100 Unit/ML SUBCUT ONE (17:30)
[2022-09-10] MEDS: Pantoprazole 40 MG Vial IVPUSH SCH (20:44)
[2022-09-10] MEDS: Timolol Maleate 0.5% Ophth Soln 5 ML Bottle EYEBOTH SCH (20:49)
[2022-09-10] MEDS ORDERED: Insulin Glarg,Human.Rec.Analog 100 Unit/ML SUBCUT SCH (21:00)
[2022-09-11] MEDS: Piperacillin/Tazobactam 3.375 GM in Sodium Chloride 0.9% 100 ML IV SCH ×2 (00:05→05:36)
[2022-09-11] MEDS: Sodium Chloride 0.9% 1,000 ML IV SCH (01:49)
[2022-09-11] MEDS: Metoclopramide 10 MG/2 ML SDV IVPUSH SCH (05:37)
[2022-09-11] MEDS ORDERED: Levothyroxine 100 MCG Tab PO SCH (06:00)
[2022-09-11 06:05] LABS: BASOPHILS PERCENT AUTO 0.1 % (0.0-1.0); HEMATOCRIT 28.6 % (40.0-54.0); HEMOGLOBIN 9.2 g/dL (14.0-18.0); LYMPHOCYTES PERCENT AUTO 12.4 % (20.5-50.1); MEAN CORPUSCULAR HEMOGLOBIN 26.6 pg (27.0-34.0); MEAN CORPUSCULAR HGB CONC 32.2 g/dL (33.0-35.0); MEAN CORPUSCULAR VOLUME 82.7 fL (80-100); MONOCYTES PERCENT AUTO 8.1 % (2-8); NEUTROPHILS PERCENT AUTO 79.4 % (42.2-75.2); PLATELET COUNT,PLT 186 10^3/uL (150-450); RED BLOOD CELL COUNT 3.46 10^6/uL (4.6-6.2); WHITE BLOOD CELL COUNT,WBC 14.3 10^3/uL (5.0-10.0)
[2022-09-11 06:18] LABS: ANION GAP 11.6 mEq/L (7-13); CALCIUM 8.4 mg/dL (8.5-10.1); CREATININE 2.18 mg/dL (0.70-1.30); EST CRCL DRUG DOSING (CG) 44.99 mL/min; POTASSIUM,K 3.6 mmol/L (3.5-5.1)
[2022-09-11 07:52] VITALS: PULSE 88
[2022-09-11] MEDS: Pantoprazole 40 MG Vial IVPUSH SCH (09:40)
[2022-09-11] MEDS: Timolol Maleate 0.5% Ophth Soln 5 ML Bottle EYEBOTH SCH (09:44)
[2022-09-11] MEDS: Insulin Lispro 100 Units/ML 3 ML Vial SUBCUT SCH (09:45)
[2022-09-11 10:23] VITALS: BP 131/81
[2022-09-11] MEDS ORDERED: Insulin Glarg,Human.Rec.Analog 100 Unit/ML SUBCUT SCH (21:00)
== END 2022-09-11 10:40 | disposition home or self-care (01) | DRG 638 ==
LOC: DL.ED 04:11 → DL.MS 10:02
PROVIDERS: ADMIT Internal Medicine; ATTEND Internal Medicine
DX: E10.10 Type 1 diabetes mellitus with ketoacidosis without coma (principal); N17.9 Acute kidney failure, unspecified; N20.0 Calculus of kidney; K80.20 Calculus of gallbladder without cholecystitis without obstruction; H54.7 Unspecified visual loss; E78.00 Pure hypercholesterolemia, unspecified; K21.9 Gastro-esophageal reflux disease without esophagitis; Z20.822 Contact with and (suspected) exposure to COVID-19; E03.9 Hypothyroidism, unspecified; E10.42 Type 1 diabetes mellitus with diabetic polyneuropathy; I10 Essential (primary) hypertension; E78.5 Hyperlipidemia, unspecified; Z28.9 Immunization not carried out for unspecified reason; D64.9 Anemia, unspecified; Z79.890 Hormone replacement therapy; Z79.899 Other long term (current) drug therapy
CPT/HCPCS: 0241U; 36415; 71250; 74176; 80048; 80053; 81001; 82009; 82150; 82271; 82803; 82947; 83605; 83690; 83735; 84100; 84145; 85025; 85610; 85730; 86140; 87040; 93005; 94762; 96365; 96366; 96368; 96375; 96376; 99285-25; A9270-GY; C9113; J1815-GY; J2405; J2543; J2765; J3370; J3480; J3490; J7030; J7040

== ENCOUNTER 2022-09-14 19:56 | Emergency (ER) | payer MEDICARE, OTHER ==
[2022-09-14 20:15] VITALS: BP 156/113; PULSE 99
== END 2022-09-14 20:39 | disposition left against medical advice (07) ==
LOC: DL.ED 19:56
DX: Z53.21 Procedure and treatment not carried out due to patient leaving prior to being seen by health care provider (principal)

== ENCOUNTER 2023-04-27 01:42 | Emergency (ER) | payer MEDICARE, OTHER ==
[~2023-04-27 01:42] MED LIST changes: -50% Dextrose in Water 50 ML Syringe IVPUSH ONE; -50% Dextrose in Water 50 ML Syringe ONE; -Dextrose 10% in Water 500 ML IV ONE; +LORazepam 2 MG/ML SDV IVPUSH ONE; +Sodium Chloride 0.9% 10 ML Syringe FLUSH PRN
[2023-04-27 01:48] VITALS: BP 140/84; PULSE 81
[2023-04-27 01:55] LABS: BASOPHILS PERCENT AUTO 0.4 % (0.0-1.0); HEMATOCRIT 36.4 % (40.0-54.0); LYMPHOCYTES PERCENT AUTO 21.4 % (20.5-50.1); MEAN CORPUSCULAR HEMOGLOBIN 28.4 pg (27.0-34.0); MEAN CORPUSCULAR VOLUME 86.1 fL (80-100); MONOCYTES PERCENT AUTO 6.7 % (2-8); NEUTROPHILS PERCENT AUTO 68.5 % (42.2-75.2); PLATELET COUNT,PLT 282 10^3/uL (150-450); RED BLOOD CELL COUNT 4.23 10^6/uL (4.6-6.2); WHITE BLOOD CELL COUNT,WBC 9.5 10^3/uL (5.0-10.0)
[2023-04-27 02:11] LABS: A/G RATIO 0.9; ALANINE AMINOTRANSFERASE,ALT 24 U/L (16-63); ALBUMIN 3.7 g/dL (3.4-5.0); ALKALINE PHOSPHATASE 137 U/L (46-116); ANION GAP 14.5 mEq/L (7-13); ASPARTATE AMNIOTRANSFERASE,AST 22 U/L (15-37); BILIRUBIN TOTAL 0.7 mg/dL (0.2-1.0); BLOOD UREA NITROGEN,BUN 23 mg/dL (7-18); BUN/CREATININE RATIO 14.6 (No establ ref range); CALCIUM 9.2 mg/dL (8.5-10.1); CARBON DIOXIDE,CO2 27 mmol/L (21-32); CHLORIDE,CL 104 mmol/L (98-107); CREATININE 1.57 mg/dL (0.70-1.30); ESTIMATED GFR 53 mL/min (>=60); GLUCOSE RANDOM 141 mg/dL (70-99); POTASSIUM,K 3.5 mmol/L (3.5-5.1); PROTEIN TOTAL,TP 7.9 g/dL (6.4-8.2); SODIUM,NA 142 mmol/L (136-145)
== END 2023-04-27 04:28 | disposition home or self-care (01) ==
LOC: DL.ED 01:42
DX: E10.649 Type 1 diabetes mellitus with hypoglycemia without coma (principal); G40.89 Other seizures; I10 Essential (primary) hypertension; E78.00 Pure hypercholesterolemia, unspecified; K21.9 Gastro-esophageal reflux disease without esophagitis; E10.40 Type 1 diabetes mellitus with diabetic neuropathy, unspecified; E03.9 Hypothyroidism, unspecified; Z79.4 Long term (current) use of insulin; Z79.899 Other long term (current) drug therapy
CPT/HCPCS: 36415; 70450; 71045; 80053; 82947; 83735; 85025; 99285